=== PATIENT | male | born 1950 | race Caucasian/White ===

== ENCOUNTER 2016-04-26 06:59 | Emergency (ER) | payer BC, MEDICARE ==
[2016-04-26 07:07] VITALS: BP 145/83
[2016-04-26 07:25] LABS: Hematocrit 34.4 % (42.0-52.0); Hemoglobin 10.9 gm/dL (13.5-18.0); Mean Cell Volume 91.5 fl (78-100); Mean Corpuscular Hgb Conc 31.7 g/dl (32-36); Mean Platelet Volume 9.7 fl (6.0-9.5); Neutrophil # 4.7 K/mm3 (1.3-6.0); Platelet Count 203 K/mm3 (150-450); Red Blood Count 3.76 M/mm3 (4.7-6.0); Red Cell Distribution Width 13.9 % (11.5-14.0); White Blood Count 7.2 K/mm3 (4.0-10.5)
[2016-04-26] MEDS ORDERED: predniSONE 20 MG TABLET PO ONE (07:25)
[2016-04-26] MEDS ORDERED: predniSONE 20 MG TABLET ONE (07:33)
--- NOTE | 2016-04-26 07:36 | ERNOTE ---
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 - Immun/Allergies/Home Medications Immunizations: IMMUNIZATION HX Immunizations Up to Date Yes History of Influenza Vaccine Yes Hx Pneumococcal Vaccination No Allergies/Adverse Reactions: Allergies No Known Allergies Allergy (Verified 04/26/16 07:07) Home Medications: HOME MEDICATIONS Insulin Glargine,Hum.rec.anlog [Lantus] 15 units SQ HS 12/24/11 [Last Taken 2100] Multivitamin [Multivitamins] 1 tab PO DAILY 12/24/11 [Last Taken Unknown] [place]-3 Fatty Acids [Fish Oil] 1 tab PO DAILY 12/24/11 [Last Taken Unknown] Insulin Lispro [Humalog] 8 units SQ AC #0 01/01/12 [Last Taken 12/07/13 0700] Iron 325 mg PO TID 09/27/15 [Last Taken Unknown] Losartan Potassium [Cozaar] 50 mg PO DAILY 09/27/15 [Last Taken Unknown] Warfarin Sodium 7.5 mg PO SUMOTUWETHSA 09/27/15 [Last Taken Unknown] Warfarin Sodium [Coumadin] 5 mg PO TH 09/27/15 [Last Taken Unknown] Cholecalciferol (Vitamin D3) [Vitamin D3] 2,000 unit PO DAILY 02/04/16 [Last Taken Unknown] Polyethylene Glycol 3350 [Miralax] 17 gm PO PRN PRN 02/04/16 [Last Taken Unknown ] Acetaminophen [Tylenol] 650 mg PO Q4H PRN #30 tablet 02/07/16 [Last Taken Unknown] Albuterol Sulfate [Proair Hfa] 1 - 2 puff IH Q4H PRN #1 inhaler 02/07/16 [Last Taken Unknown] Albuterol Sulfate/Ipratropium [Duoneb 2.5-0.5MG/3ML Soln] 3 ml IH BID #1 nebu [Last Taken Unknown] Albuterol Sulfate [Albuterol Sulfate 2.5 MG/3 ML] 2.5 mg IH Q4H #60 vial.neb 07/08 [Last Taken Unknown] predniSONE [Prednisone] 2 tab PO BID #10 tab 04/26/16 [Last Taken Unknown] - History of Present Illness Narrative: Pt states he started have wheezing and sob earlier this morning about 0200 which awakened him. He says he used albuterol nebulizer then. He denies any fever but says he did also have some nasal congestion this a.m. He denies a history of asthma or COPD but was hospitalized in 2015 with SOB and dx'd with asthma. He denies any hx. of heart disease or CHF. 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 Denies: fever/chills, sweating, chest pain/discomfort, palpitations Prior Treatment: Reports: previous episodes - IN 2015 HE WAS HOSPITALIZED FOR "PNEUMONIA Review of Systems - Review of Systems Constitutional: Present: See HPI EYE: Present: no symptoms reported ENT: Present: nose congestion Respiratory: Present: shortness of breath, cough - MINIMAL , wheezing Cardiology: Present: no symptoms reported Gastrointestinal/Abdominal: Present: no symptoms reported Musculoskeletal: Present: no symptoms reported Skin: Present: no symptoms reported Neurological: Present: no symptoms reported Endocrine: Present: no symptoms reported Hematologic/Lymphatic: Present: no symptoms reported Psych: Present: no symptoms reported All Other Systems: All systems neg except as marked - Narrative Narrative: I LEARNED FROM AN OLD CHART AND THE THAT PT IS ON COUMADIN FOR HISTORY OF A FIB. - Patient's Past Medical History Patient History - Medical: Other Patient History - Cardiac/Respiratory: No pertinent hx, Atrial Fibrillation - HX. OF PAROXSYSMAL ATRAIL FIB. , Pneumonia Patient History - Cancer: No Hx of Cancer Patient History - Surgical Procedures: Orthopedic - STATES HE HAD ORIF LEFT ELBOW AND RIGHT HIP FRACTURE Patient History - Other: None - Family History Mother Family History - Medical: , History Unknown Father Family History - Medical: - Social History Living Situations: home Abuse History: No History of abuse Psych History: No pertinent hx Does anyone smoke in the home?: No Smoking Status: Never smoker Alcohol Use: none Drug Use: none - Immunizations Immunizations Up to Date: Yes Hx Pneumococcal Vaccination: No History of Influenza Vaccine: Yes Physical Exam - Physical Exam General Appearance: Present: alert, no apparent distress, other - ELDERLY THIN , SL. HUNCHED OVER MAN , A & O WITH FINE AUDIBLE WHEEZE. Ears, Nose, Throat: Present: nasal congestion - MILD Neck: Present: normal inspection, nontender Respiratory: Present: no respiratory distress, no accessory muscle use, chest nontender, wheezing - MILD END EXPIRATORY WHEEZE. Cardiovascular/Chest: Present: regular rate, rhythm, no murmur, normal peripheral pulses Back Exam: Present: normal inspection Extremity Exam: Present: no edema Neurological Exam: Present: alert, oriented Skin Exam: Present: normal color ED Progress - Date and Time Seen: Date and Time: 04/26/16 08:42 AFTER THE DUONEB HIS WHEEZES ARE GONE. - Results and Orders Patient's Lab Results:: I have reviewed the patient's lab results. Results and Orders: HGB= 10.9, INR = 2.25, GLUC =180, AND REST OF LABS WNL. BNP IS NORMAL - Vital Signs Patient's Vital Signs:: I have reviewed the patient's vital signs. Vital Signs: Vital Signs 04/26/16 07:03 Temperature 37.7 C H Pulse Rate 100 Respiratory 24 H Rate Blood Pressure 145/83 O2 Sat by Pulse 95 Oximetry MILD ELEVATED RR ON ADMISSION IN TRIAGE. - X-Ray X-Ray #1 X-Ray: chest Interpretation: Interp. by me X-ray Comments: HYPERINFLATION, SCOLIOSIS, NO INFILTRATE SEEN. - Progress/Reassessment Chief Complaint: Dyspnea Plan - Plan Plan: SINCE HE HAS NOT BEEN ON DUONEB AT HOME I WILL HAVE HIM CONT. THE ALBUTEROL NEB FOR NOW. HE RELATES HE DID HAVE ASTHMA A CHILD AND THAT HX COUPLED WITH RECENT MILD URI SX'S MAY EXPLAIN WHY HE HAD MORE TROUBLE TODAY. I SEE NO EVIDENCE OF PNEUMONIA. Departure Clinical Impression: Dyspnea, unspecified Qualifiers: Dyspnea type: shortness of breath Qualified Code(s): R06.02 - Shortness of breath - Departure Disposition: Home Follow Up Needed Instructions: Chronic Obstructive Pulmonary Disease Exacerbation, [id number] Additional Instructions: CONTACT YOUR DOCTOR TOMORROW TO ARRANGE RECHECK OR RETURN TO THE ER IF WORSE. USE YOUR ALBUTEROL NEBULIZER EVERY 4 HOURS AT HOME UNTIL YOU IMPROVE THEN DECREASE TO EVERY 6 HOURS. TAKE THE PREDNISONE DIRECTED -- YOU ALREADY HAD TODAYS DOSE IN THE EMERGENCY ROOM SO THE NEXT DOSE IS TOMORROW. IT IS BEST TO TAKE IT WITH FOOD IN YOUR STOMACH AND IT CAN CAUSE A RISE IN YOUR BLOOD SUGAR. MAKE SURE YOU ARE DRINKING 6- 8 GLASSES OF FLUID A DAY. Referrals: Maritza Carter MD [Primary Care Provider] - Prescriptions: Albuterol Sulfate [Albuterol Sulfate 2.5 MG/3 ML] 2.5 mg IH Q4H #60 vial.neb predniSONE [Prednisone] 2 tab PO BID #10 tab
[2016-04-26 07:37] LABS: Prothrombin Time (Patient) 23.4 Seconds (9.4-11.4)
[2016-04-26 07:38] LABS: Anion Gap 12.2 mmol/L (6.8-13.8); BUN/Creatinine Ratio 17.9 (9.0-21.6); Bilirubin, Total 0.3 mg/dL (0.0-1.1); Ca. Corrected For Albumin 8.8 mg/dL (8.4-10.2); Calcium * 8.3 mg/dL (7.9-10.9); Carbon Dioxide 27.9 mmol/L (24-32.6); Potassium 4.1 mmol/L (3.4-4.6); Total Protein 7.2 gm/dL (6.2-8.2)
[2016-04-26 07:41] LABS: INR 2.25 INR (0.90-1.10)
--- OUTSIDE RECORDS SUMMARY | 2016-04-26 07:41 | XMS REPORT | Summary of Care ---
:1950 Author Organization [facility] Address [address] [place] [address] Care Team Providers Name Role Phone Maritza Carter Primary Care Physician Encounter Date(s): 04/10/16 - 04/10/16 [facility], [address] [place], [place] [address] Discharge Diagnosis: Benign prostatic hypertrophy (BPH) with incomplete bladder emptying Discharge Disposition: 01 Discharged to Home or Self Care Attending Physician: Davidson Collins MD Referring Physician: Davidson Collins MD Vital Signs Most recent to oldest [Reference Range]: 1 Peripheral Pulse Rate [60-100 bpm] 60 bpm (04/10/16 10:00 AM) Blood Pressure [90-130/60-90 mmHg] 114/67mmHg (04/10/16 10:00 AM) Mean Arterial Pressure, Cuff 83 mmHg (04/10/16 10:00 AM) Most recent to oldest [Reference Range]: 1 Height/Length Measured 182 cm (04/10/16 10:00 AM) Weight Dosing 73.60 kg1 (04/10/16 10:01 AM) Weight Measured 73.6 kg (04/10/16 10:00 AM) BSA Measured 1.94 m2 (04/10/16 10:00 AM) Body Mass Index Measured 22.22 kg/m2 (04/10/16 10:00 AM) 1Result Comment: This result was because the dosing weight was either not entered or it is>30 days old. This result is based off: Weight Measured April 10, 2016 10:00:00 FARM SUPERVISOR by Amelia Recinos RN Problem List Condition Effective Dates Status Health Status Informant Anemia(Confirmed) Active Cellulitis(Confirmed)1 Active Charcot joint of foot(Confirmed) Active CHF - Congestive heart Active failure(Confirmed) CKD stage 3(Confirmed) Active Diabetes mellitus type 1(Confirmed) Active Edema(Confirmed) Active Hypertension(Confirmed) Active Microalbuminuria(Confirmed) Active Osteoarthritis(Confirmed) Active Pad(Confirmed) Active Proteinuria(Confirmed) Active Renal mass(Confirmed) Active Secondary Active hyperparathyroidism(Confirmed) Vitamin D deficiency(Confirmed) Active 1left leg Allergies, Adverse Reactions, Alerts No Known Medication Allergies Medications Tish Childrens Aspirin 81 mg oral tablet, chewable 1 tab(s), Oral, Daily, # 30 tab(s), 0 Refill(s) Start Date: 07/19/13 Stop Date: 11/26/15 Status: Discontinuedcalcitriol 0.25 mcg oral capsule 1 cap(s), Oral, Every other day, # 15 cap(s), 5 Refill(s), Start Date: 01/07/15 12:39:55 FARM SUPERVISOR, Pharmacy: [place], [place] Start Date: 01/07/15 Stop Date: 11/26/15 Status: Discontinuedcalcitriol 0.25 mcg oral capsule 1 cap(s), Oral, Every other day, # 15 cap(s), 6 Refill(s), Start Date: 06/20/14 10:38:00 CDT, Pharmacy: [place], [place] Start Date: 06/20/14 Stop Date: 01/07/15 Status: Completedcholecalciferol 2000 intl units oral tablet 1 tab(s), Oral, Daily, # 30 tab(s), 6 Refill(s), Start Date: 06/20/14 10:38:00 CDT, Pharmacy: [place], [place] Start Date: 06/20/14 Status: Orderedferrous sulfate 325 mg (65 mg elemental iron) oral delayed release tablet 3 tab(s), Oral, Daily, # 30 tab(s), 0 Refill(s), Start Date: 07/19/13 8:58:00 CDT Start Date: 07/19/13 Status: Orderedfinasteride 5 mg oral tablet 1 tab(s), Oral, Daily, # 90 tab(s), 3 Refill(s), Start Date: 02/27/16 14:15:22 FARM SUPERVISOR, Pharmacy: [facility] Start Date: 02/27/16 Stop Date: 02/21/17 Status: Orderedfinasteride 5 mg oral tablet 1 tab(s), Oral, Daily, X 90 days, # 90 tab(s), 3 Refill(s), Start Date: 16:39:00 CDT, Pharmacy: [place], [place] Start Date: 10/07/15 Stop Date: 02/27/16 Status: CompletedFish Oil 1000 mg oral capsule 1 cap(s), Oral, Daily, 0 Refill(s) Start Date: 07/19/13 Status: OrderedFlomax 0.4 mg oral capsule 1 cap(s), Oral, Daily, before bed, # 30 cap(s), 11 Refill(s), Start Date: 9:57:00 CDT, Pharmacy: [place], [place] Special Instructions: before bed Start Date: 09/14/14 Status: OrderedHumaLOG 100 units/mL subcutaneous solution 5 unit(s), Subcutaneous, TIDAC, # 10 mL, 0 Refill(s) Start Date: 07/19/13 Status: OrderedLantus 100 units/mL subcutaneous solution Subcutaneous, 0 Refill(s) Start Date: 07/19/13 Status: Orderedlisinopril 40 mg oral tablet 1 tab(s), Oral, BID, 0 Refill(s) Start Date: 07/19/13 Stop Date: 04/23/15 Status: Completedlosartan 50 mg oral tablet 1 tab(s), Oral, Daily, # 90 tab(s), 3 Refill(s), Start Date: 11/26/15 10:13:36 CDT, Pharmacy: [place], [place] Start Date: 11/26/15 Status: Orderedlosartan 50 mg oral tablet 1 tab(s), Oral, Daily, # 30 tab(s), 5 Refill(s), Start Date: 06/19/15 15:12:25 CDT, Pharmacy: [place], [place] Start Date: 06/19/15 Stop Date: 11/26/15 Status: Completedlosartan 50 mg oral tablet 1 tab(s), Oral, Daily, # 30 tab(s), 5 Refill(s), Start Date: 12/19/14 10:45:00 CDT, Pharmacy: [place] Start Date: 12/19/14 Stop Date: 06/19/15 Status: CompletedMiraLax gm, Oral, Daily, 0 Refill(s) Start Date: 07/19/13 Status: Orderedmultivitamin 1 tab, Oral, Daily, 0 Refill(s) Start Date: 07/19/13 Status: Ordered Results No data available for this section Immunizations No data available for this section Procedures Procedure Date Related Diagnosis Body Site Fracture care1 2011 Colonoscopy 2010 Hernia repair 1984 Amputation great toe ORIF - Open reduction and internal fixation of fracture2 1right [id number] Fracture Social History No data available for this section Assessment and Plan No data available for this section
[2016-04-26] MEDS ORDERED: ALBUTEROL SULFATE/IPRATROPIUM 3 ML NEBU IH ONE ×2 (08:14→08:15)
== END 2016-04-26 09:04 | disposition home or self-care (01) ==
LOC: ER 06:59
DX: R06.02 Shortness of breath (principal)

== ENCOUNTER 2016-07-30 14:27 | Emergency (ER) | payer BC, MEDICARE ==
[2016-07-30] MEDS ORDERED: METHYLPREDNISOLONE SOD SUCC/PF 40 MG/ML VIAL IV ONE (14:47)
[2016-07-30] MEDS ORDERED: ALBUTEROL SULFATE/IPRATROPIUM 3 ML NEBU IH ONE ×2 (14:47→14:56)
[2016-07-30 14:52] LABS: Hematocrit 32.7 % (42.0-52.0); Hemoglobin 10.6 gm/dL (13.5-18.0); Mean Cell Volume 87.9 fl (78-100); Mean Corpuscular Hemoglobin 28.5 pg (27-31); Mean Corpuscular Hgb Conc 32.4 g/dl (32-36); Mean Platelet Volume 9.2 fl (6.0-9.5); Neutrophil # 3.9 K/mm3 (1.3-6.0); Platelet Count 243 K/mm3 (150-450); Red Blood Count 3.72 M/mm3 (4.7-6.0); Red Cell Distribution Width 13.8 % (11.5-14.0); White Blood Count 6.7 K/mm3 (4.0-10.5)
[2016-07-30] MEDS ORDERED: METHYLPREDNISOLONE SOD SUCC/PF 40 MG/ML VIAL ONE (15:04)
[2016-07-30 15:11] LABS: Anion Gap 12.1 mmol/L (6.8-13.8); BUN/Creatinine Ratio 21.2 (9.0-21.6); Bilirubin, Total 0.3 mg/dL (0.0-1.1); Ca. Corrected For Albumin 9.3 mg/dL (8.4-10.2); Calcium * 8.8 mg/dL (7.9-10.9); Carbon Dioxide 26.3 mmol/L (24-32.6); Magnesium 2.1 mg/dL (1.2-2.8); Potassium 4.4 mmol/L (3.4-4.6); Total Protein 7.1 gm/dL (6.2-8.2)
--- NOTE | 2016-07-30 16:04 | ERNOTE ---
Dyspnea - General Presenting Symptoms: shortness of breath, wheezing Time Seen by Provider: 07/30/16 14:40 Source: patient, family - Immun/Allergies/Home Medications Immunizations: IMMUNIZATION HX Immunizations Up to Date Yes History of Influenza Vaccine Yes Hx Pneumococcal Vaccination No Allergies/Adverse Reactions: Allergies No Known Allergies Allergy (Verified 07/30/16 14:37) Home Medications: HOME MEDICATIONS Insulin Glargine,Hum.rec.anlog [Lantus] 15 units SQ HS 12/24/11 [Last Taken 2100] Multivitamin [Multivitamins] 1 tab PO DAILY 12/24/11 [Last Taken Unknown] [place]-3 Fatty Acids [Fish Oil] 1 tab PO DAILY 12/24/11 [Last Taken Unknown] Iron 325 mg PO TID 09/27/15 [Last Taken Unknown] Losartan Potassium [Cozaar] 50 mg PO DAILY 09/27/15 [Last Taken Unknown] Warfarin Sodium 7.5 mg PO SUMOTUWETHSA 09/27/15 [Last Taken Unknown] Warfarin Sodium [Coumadin] 5 mg PO TH 09/27/15 [Last Taken Unknown] Cholecalciferol (Vitamin D3) [Vitamin D3] 2,000 unit PO DAILY 02/04/16 [Last Taken Unknown] Polyethylene Glycol 3350 [Miralax] 17 gm PO PRN PRN 02/04/16 [Last Taken Unknown ] Acetaminophen [Tylenol] 650 mg PO Q4H PRN #30 tablet 02/07/16 [Last Taken Unknown] Albuterol Sulfate [Proair Hfa] 1 - 2 puff IH Q4H PRN #1 inhaler 02/07/16 [Last Taken Unknown] Albuterol Sulfate/Ipratropium [Duoneb 2.5-0.5MG/3ML Soln] 3 ml IH BID #1 nebu [Last Taken Unknown] Albuterol Sulfate/Ipratropium [Duoneb 2.5-0.5MG/3ML Soln] 3 ml IH QID #150 vial 07/30/16 [Last Taken Unknown] Doxycycline Monohydrate 100 mg PO BID #20 tablet 07/30/16 [Last Taken Unknown] Insulin Lispro [Humalog] 5 units SQ AC 07/30/16 [Last Taken Unknown] predniSONE [Deltasone] 20 mg PO BID #10 tablet 07/30/16 [Last Taken Unknown] - History of Present Illness Narrative: Patient presents with shortness of breath, cough and wheezing. He states this been ongoing for approximately the last day and he is tried treatments at home and they do not appear to be working effectively. He describes the overall symptomatology as being moderate in intensity. 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 Initiating event: Reports: upper resp illness Frequency of episodes: Reports: occassional episodes Modifying Factors - (Improves): Reports: albuterol Modifying Factors (Worsens): Reports: activity Review of Systems - Review of Systems Constitutional: Present: See HPI EYE: Present: no symptoms reported ENT: Present: no symptoms reported Respiratory: Present: See HPI Cardiology: Present: no symptoms reported Gastrointestinal/Abdominal: Present: no symptoms reported Genitourinary: Present: no symptoms reported Musculoskeletal: Present: no symptoms reported Skin: Present: no symptoms reported Neurological: Present: no symptoms reported Endocrine: Present: no symptoms reported Hematologic/Lymphatic: Present: no symptoms reported Psych: Present: no symptoms reported - Patient's Past Medical History Patient History - Medical: Other Patient History - Cardiac/Respiratory: No pertinent hx, Atrial Fibrillation, Pneumonia, Other - asthma Patient History - Cancer: No Hx of Cancer Patient History - Surgical Procedures: Orthopedic Patient History - Other: None - Family History Mother Family History - Medical: , History Unknown Father Family History - Medical: - Social History Living Situations: home Abuse History: No History of abuse Psych History: No pertinent hx Does anyone smoke in the home?: No Smoking Status: Never smoker Have you smoked in the past 12 months: No Alcohol Use: none Drug Use: none - Immunizations Immunizations Up to Date: Yes Hx Pneumococcal Vaccination: No History of Influenza Vaccine: Yes Physical Exam - Physical Exam General Appearance: Present: wd/wn, alert, mild distress Eye Exam: Normal inspection: bilateral, PERRL: bilateral Ears, Nose, Throat: Present: normal ENT inspection, H, normal pharynx Neck: Present: normal inspection, nontender Respiratory: Present: no accessory muscle use, chest nontender, rhonchi, wheezing Cardiovascular/Chest: Present: regular rate, rhythm, no murmur, normal peripheral pulses Gastrointestinal/Abdominal: Present: normal bowel sounds, nontender, nondistended, soft, no organomegaly Rectal Exam: Present: deferred Back Exam: Present: normal inspection, normal range of motion Extremity Exam: Present: normal inspection, non-tender, no edema, normal range of motion Neurological Exam: Present: alert, oriented, normal mood/affect Skin Exam: Present: normal color, warm/dry Lymphatic Exam: Present: no adenopathy ED Progress - Results and Orders Patient's Lab Results:: I have reviewed the patient's lab results. - Vital Signs Patient's Vital Signs:: I have reviewed the patient's vital signs. Vital Signs: Vital Signs 07/30/16 07/30/16 07/30/16 14:33 14:37 15:09 Temperature 37 C Pulse Rate 73 72 72 Respiratory 14 12 Rate Blood Pressure 146/76 141/69 O2 Sat by Pulse 94 94 Oximetry 07/30/16 15:38 Temperature Pulse Rate 66 Respiratory 13 Rate Blood Pressure 150/72 O2 Sat by Pulse 95 Oximetry - X-Ray X-Ray #1 X-Ray: chest Interpretation: Reviewed by me - Progress/Reassessment Chief Complaint: Dyspnea Progress:: Improved Plan - Plan Plan: Patient improved on the DuoNeb HHN treatment as well as the IV steroids. Patient will be given a prescription for antibiotics, oral steroids and DuoNeb for his breathing machine at home. Patient will follow-up with his family physician in a week to 10 days. Patient is discharged in stable condition. Departure Clinical Impression: Bronchitis Asthma Qualifiers: Asthma severity: mild intermittent Asthma complication type: uncomplicated Qualified Code(s): J45.20 - Mild intermittent asthma, uncomplicated - Departure Disposition: Home self-care Condition: Good Instructions: Bronchospasm, Adult, [id number], Acute Bronchitis, [id number] Referrals: Maritza Carter MD [Primary Care Provider] - Prescriptions: Albuterol Sulfate/Ipratropium [Duoneb 2.5-0.5MG/3ML Soln] 3 ml IH QID #150 vial Doxycycline Monohydrate 100 mg PO BID #20 tablet predniSONE [Deltasone] 20 mg PO BID #10 tablet
[2016-07-30 16:18] VITALS: BP 136/70
== END 2016-07-30 16:21 | disposition home or self-care (01) ==
LOC: ER 14:27
DX: J45.20 Mild intermittent asthma, uncomplicated (principal); I48.91 Unspecified atrial fibrillation; Z79.01 Long term (current) use of anticoagulants

== ENCOUNTER 2016-09-02 06:55 | Emergency (ER) | payer BC, MEDICARE ==
[2016-09-02] MEDS ORDERED: oxyCODONE HCL/ACETAMINOPHEN 1 TAB TABLET PO ONE (08:33)
--- NOTE | 2016-09-02 08:44 | ERNOTE ---
Upper Extremity HPI - General Extremities Pain Location: shoulder: left Time Seen by Provider: 09/02/16 08:12 Source: patient Exam Limitations: no limitations - Immun/Allergies/Home Medications Immunizations: IMMUNIZATION HX Immunizations Up to Date Yes History of Influenza Vaccine Yes Hx Pneumococcal Vaccination No Allergies/Adverse Reactions: Allergies Allergy/AdvReac Type Severity Reaction Status Date / Time No Known Allergies Allergy Verified 09/02/16 07:07 Home Medications: HOME MEDICATIONS Insulin Glargine,Hum.rec.anlog [Lantus] 15 units SQ HS 12/24/11 [Last Taken 01/08] Multivitamin [Multivitamins] 1 tab PO DAILY 12/24/11 [Last Taken 09/01/16] [place]-3 Fatty Acids [Fish Oil] 1 tab PO DAILY 12/24/11 [Last Taken 09/01/16] Iron 325 mg PO TID 09/27/15 [Last Taken 09/01/16] Losartan Potassium [Cozaar] 50 mg PO DAILY 09/27/15 [Last Taken 09/01/16] Warfarin Sodium 7.5 mg PO SUTUWESA 09/27/15 [Last Taken 09/01/16] Warfarin Sodium [Coumadin] 5 mg PO MOTH 09/27/15 [Last Taken 09/01/16] Cholecalciferol (Vitamin D3) [Vitamin D3] 2,000 unit PO DAILY 02/04/16 [Last Taken 09/01/16] Polyethylene Glycol 3350 [Miralax] 17 gm PO PRN PRN 02/04/16 [Last Taken ] Acetaminophen [Tylenol] 650 mg PO Q4H PRN #30 tablet 02/07/16 [Last Taken ] Albuterol Sulfate [Proair Hfa] 1 - 2 puff IH Q4H PRN #1 inhaler 02/07/16 [Last Taken 09/01/16] Albuterol Sulfate/Ipratropium [Duoneb 2.5-0.5MG/3ML Soln] 3 ml IH QID #150 vial 07/30/16 [Last Taken 09/01/16] Insulin Lispro [Humalog] 5 units SQ AC 07/30/16 [Last Taken 09/01/16] Albuterol Sulfate/Ipratropium [Duoneb 2.5-0.5MG/3ML Soln] 3 ml IH BID PRN [Last Taken 09/01/16] oxyCODONE HCL/ACETAMINOPHEN [Percocet 5 MG/325 MG] 1 tab PO Q4H PRN #30 tab 02/07 [Last Taken Unknown] - History of Present Illness Narrative: Yesterday afternoon patient took a shower and then sat on the toilet when he started to feel lightheaded and fell on his left side hitting his left chest and shoulder on the tub. He was able to get up with help and when he checked in sugar it was 47. He felt better after he ate and drank. 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 He is seeing Dr Quinn for a chronic foot wound that he thinks is getting better and that he does not think needs to be addressed today Review of Systems - Review of Systems Constitutional: Absent: recent illness, fever ENT: Absent: nose congestion, sore throat Respiratory: Present: See HPI, other - pain with deep breath. Absent: shortness of breath Cardiology: Present: See HPI, chest pain Gastrointestinal/Abdominal: Absent: nausea, vomiting, abdominal pain Genitourinary: Present: no symptoms reported Musculoskeletal: Present: See HPI. Absent: back pain, neck pain Neurological: Absent: weakness, numbness - Patient's Past Medical History Patient History - Medical: Diabetes Type 2 Insulin Dependent Patient History - Cardiac/Respiratory: Atrial Fibrillation, Hypertension, Pneumonia, Other Patient History - Cancer: No Hx of Cancer Patient History - Surgical Procedures: Total Hip Replacement Patient History - Other: None - Family History Mother Family History - Medical: , History Unknown Father Family History - Medical: - Social History Living Situations: home Abuse History: No History of abuse Psych History: No pertinent hx Does anyone smoke in the home?: No Smoking Status: Never smoker Have you smoked in the past 12 months: No Do you dip or chew tobacco: No Alcohol Use: none Drug Use: none - Immunizations Immunizations Up to Date: Yes Hx Pneumococcal Vaccination: No History of Influenza Vaccine: Yes Physical Exam - Physical Exam General Appearance: Present: wd/wn, alert, no apparent distress Head Exam: Present: normal inspection Neck: Present: normal inspection, nontender Respiratory: Present: no respiratory distress, normal breath sounds, no accessory muscle use, lungs clear, chest tenderness - left lower chest tender between mid clavicular and anterio axillay line, no bruising, no instability, minimal tenderness over left scapula spine, no other scapula tenderness Cardiovascular/Chest: Present: regular rate, rhythm, no murmur Gastrointestinal/Abdominal: Present: normal bowel sounds, nontender, nondistended, soft Back Exam: Present: normal inspection, no CVA tenderness, no vertebral tenderness Neurological Exam: Present: alert, oriented Skin Exam: Present: normal color, warm/dry ED Progress - Vital Signs Patient's Vital Signs:: I have reviewed the patient's vital signs. Vital Signs: Vital Signs 09/02/16 06:58 Temperature 36.9 C Pulse Rate 68 Respiratory 16 Rate Blood Pressure 150/74 O2 Sat by Pulse 98 Oximetry - X-Ray X-Ray #1 X-Ray: shoulder - scapular spine fracture, osteopenia Interpretation: Reviewed by me X-Ray #2 X-Ray: ribs, fracture multiple ribs Interpretation: Reviewed by me - Progress/Reassessment Chief Complaint: Upper Extremity Injury/Problem Progress Note-Subjective: 09/02/16 08:35 discussed Xray with patient and Departure Clinical Impression: Ribs, multiple fractures Qualifiers: Encounter type: initial encounter Fracture type: closed Laterality: left Qualified Code(s): S22.42XA - Multiple fractures of ribs, left side, initial encounter for closed fracture - Departure Disposition: Home self-care Condition: Good Instructions: Rib Fracture, [id number] Additional Instructions: try to take tylenol (325mg) two tablets every four hours as needed for pain, take the percocet for sleeping or as needed during the day (do not take together as percocet has tylenol in it) take miralax daily, take senokot while you are taking the pain medication, call your doctor for follow up Referrals: Maritza Catrer MD [Primary Care Provider] - Prescriptions: oxyCODONE HCL/ACETAMINOPHEN [Percocet 5 MG/325 MG] 1 tab PO Q4H PRN #30 tab PRN Reason: Pain
[2016-09-02] MEDS ORDERED: oxyCODONE HCL/ACETAMINOPHEN 1 TAB TABLET ONE (08:49)
[2016-09-02 09:24] VITALS: BP 142/76
== END 2016-09-02 09:20 | disposition home or self-care (01) ==
LOC: ER 06:55
DX: S22.42XA Multiple fractures of ribs, left side, initial encounter for closed fracture (principal); M25.512 Pain in left shoulder; W19.XXXA Unspecified fall, initial encounter

== ENCOUNTER 2016-09-11 08:21 | Inpatient (IN) | payer BC, MEDICARE ==
[2016-09-11] MEDS ORDERED: NORMAL SALINE 1,000 ML IV PRN (08:54)
--- NOTE | 2016-09-11 09:00 | ERNOTE ---
Medical Problem HPI - Narrative Date of Service: 09/11/16 - General Chief Complaint: Fever Time Seen by Provider: 09/11/16 08:45 Source: patient, family Exam Limitations: no limitations - Immun/Allergies/Home Medications Immunizations: IMMUNIZATION HX Immunizations Up to Date Yes History of Influenza Vaccine Yes Hx Pneumococcal Vaccination No Allergies/Adverse Reactions: Allergies No Known Allergies Allergy (Verified 09/11/16 09:02) Home Medications: HOME MEDICATIONS Insulin Glargine,Hum.rec.anlog [Lantus] 15 units SQ HS 12/24/11 [Last Taken 01/08] Multivitamin [Multivitamins] 1 tab PO DAILY 12/24/11 [Last Taken 09/01/16] [place]-3 Fatty Acids [Fish Oil] 1 tab PO DAILY 12/24/11 [Last Taken 09/01/16] Iron 325 mg PO TID 09/27/15 [Last Taken 09/01/16] Losartan Potassium [Cozaar] 50 mg PO DAILY 09/27/15 [Last Taken 09/01/16] Warfarin Sodium 7.5 mg PO SUTUWESA 09/27/15 [Last Taken 09/01/16] Warfarin Sodium [Coumadin] 5 mg PO MOTH 09/27/15 [Last Taken 09/01/16] Cholecalciferol (Vitamin D3) [Vitamin D3] 2,000 unit PO DAILY 02/04/16 [Last Taken 09/01/16] Polyethylene Glycol 3350 [Miralax] 17 gm PO PRN PRN 02/04/16 [Last Taken ] Acetaminophen [Tylenol] 650 mg PO Q4H PRN #30 tablet 02/07/16 [Last Taken ] Albuterol Sulfate [Proair Hfa] 1 - 2 puff IH Q4H PRN #1 inhaler 02/07/16 [Last Taken 09/01/16] Albuterol Sulfate/Ipratropium [Duoneb 2.5-0.5MG/3ML Soln] 3 ml IH QID #150 vial 07/30/16 [Last Taken 09/01/16] Insulin Lispro [Humalog] 5 units SQ AC 07/30/16 [Last Taken 09/01/16] Albuterol Sulfate/Ipratropium [Duoneb 2.5-0.5MG/3ML Soln] 3 ml IH BID PRN [Last Taken 09/01/16] oxyCODONE HCL/ACETAMINOPHEN [Percocet 5 MG/325 MG] 1 tab PO Q4H PRN #30 tab 02/07 [Last Taken Unknown] - History of Present History Narrative: 65-year-old white male presents because of illness. Patient was seen and evaluated following a fall on 09/02/2016 for a suffered for nondisplaced left- sided rib fractures. He was discharged home following plain films. During the past couple days he has had problems. He developed fever and chills yesterday. He's had urinary incontinence. He's had dizziness and difficulty ambulating due to his overall generalized weakness. Denies any focal weakness of his extremities. He does not have a headache. He denies head injury with the fall. He has no history of urinary incontinence. He has not had hematuria. He denies cough or shortness of breath. He did have vomiting today. Review of Systems - Review of Systems Constitutional: Present: See HPI, recent illness, fever, chills, weakness, fatigue, malaise, decreased activity level EYE: Present: no symptoms reported ENT: Present: no symptoms reported Respiratory: Present: See HPI. Absent: shortness of breath, cough Gastrointestinal/Abdominal: Present: nausea. Absent: vomiting, abdominal pain Genitourinary: Present: See HPI. Absent: pain, hematuria Musculoskeletal: Present: See HPI - left-sided chest pain from 4 rib fractures on September 02 2016 fall Skin: Present: no symptoms reported Neurological: Present: dizziness/light-headedness Endocrine: Present: See HPI Hematologic/Lymphatic: Present: other - patient is on Coumadin Psych: Present: no symptoms reported All Other Systems: All systems neg except as marked - Patient's Past Medical History Patient History - Medical: Diabetes Type 1 Patient History - Cardiac/Respiratory: Atrial Fibrillation, Hypertension, Pneumonia, Other Patient History - Cancer: No Hx of Cancer Patient History - Surgical Procedures: Total Hip Replacement Patient History - Other: None - Family History Mother Family History - Medical: , History Unknown Father Family History - Medical: - Social History Living Situations: home Abuse History: No History of abuse Psych History: No pertinent hx Does anyone smoke in the home?: No Smoking Status: Never smoker Alcohol Use: none Drug Use: none - Immunizations Immunizations Up to Date: Yes Hx Pneumococcal Vaccination: No History of Influenza Vaccine: Yes Physical Exam - Physical Exam General Appearance: Present: alert Eye Exam: Normal inspection: bilateral, PERRL: bilateral, EOMI: bilateral Ears, Nose, Throat: Present: normal ENT inspection, normal except - Respiratory: Present: no respiratory distress, other - lungs are diminished and coarse bilaterally. Cardiovascular/Chest: Present: regular rate, rhythm, normal peripheral pulses, other - patient has tenderness left chest wall Gastrointestinal/Abdominal: Present: normal bowel sounds, nontender, soft. Absent: tenderness Extremity Exam: Present: normal inspection, other - patient has a large ulcerative lesion on the plantar surface of his left foot. 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 - Vital Signs Patient's Vital Signs:: I have reviewed the patient's vital signs. Vital Signs: Vital Signs 09/11/16 08:35 Temperature 38.1 C H Pulse Rate 89 Respiratory 16 Rate Blood Pressure 136/89 O2 Sat by Pulse 95 Oximetry - EKG EKG: NSR EKG read: Reviewed by me - CT/Ultrasound CT/Ultrasound Narrative: Reviewed radiologist's interpretation of CT brain chest abdomen pelvis. - Progress/Reassessment Chief Complaint: Fever Progress:: Re-examined Progress Note-Subjective: 09/11/16 11:42 Patient continues to have fever. Blood cultures were drawn. Initial lactic acid was within normal limits. Rocephin 1 g IV given. Patient was also given Tylenol by mouth. Blood pressure remained stable. Urine culture will be done. Patient does have hematuria. He's had urinary incontinence with this. Plan - Plan Plan: Spoke with patient's primary care provider Dr. Carter at 11:40 AM. Patient is still having fever. He is too ill to be discharged home safely. Blood cultures drawn. Urine cultures done. Repeat lactic acid will be done. Rocephin 1 g IV given. Tylenol given. Vital signs remain stable however his fever has elevated. Patient has had increasing generalized weakness with fevers chills and urinary incontinence which are new. I spoke to patient's primary care physician regarding his CT brain finding. At this time he is comfortable taking care of patient. We did discuss the possibility that patient could have normal pressure hydrocephalus. Patient will be admitted to the medical floor. Patient will need to have an MRI of his left foot my opinion to rule out osteomyelitis. Departure - Departure Clinical Impression: Fever and chills, Hyponatremia, PAF (paroxysmal atrial fibrillation), Dizziness Diabetic foot ulcer Qualifiers: Diabetic foot ulcer location: unspecified part of foot Diabetes mellitus type: type 1 Laterality: left Non-pressure ulcer stage: unspecified non-pressure ulcer stage Qualified Code(s): E10.621 - Type 1 diabetes mellitus with foot ulcer; L97.529 - Non-pressure chronic ulcer of other part of left foot with unspecified severity Anemia Qualifiers: Anemia type: unspecified type Qualified Code(s): D64.9 - Anemia, unspecified Diabetes Qualifiers: Diabetes mellitus type: type 1 Diabetes mellitus complication status: with unspecified complications Qualified Code(s): E10.8 - Type 1 diabetes mellitus with unspecified complications Disposition: [facility] Condition: Stable
--- OUTSIDE RECORDS SUMMARY | 2016-09-11 09:02 | XMS REPORT | Summary of Care ---
:1950 Author Organization [facility] Address [address] [place] [address] Care Team Providers Name Role Phone Maritza Carter Primary Care Physician Encounter Date(s): 05/26/16 - 05/26/16 [facility], [address] [place], [place] [address] Discharge Diagnosis: Chronic kidney disease (CKD), stage III (moderate) Discharge Diagnosis: Benign hypertension with CKD (chronic kidney disease) stage III Discharge Diagnosis: Hypernatremia Discharge Diagnosis: Anemia of chronic kidney failure Discharge Disposition: 01 Discharged to Home or Self Care Attending Physician: RHONA Santiago Referring Physician: RHONA Santiago Vital Signs Most recent to oldest [Reference Range]: 1 Temperature Temporal Artery [36.0-38.0 DegC] 37.3 DegC (05/26/16 10:21 AM) Peripheral Pulse Rate [60-100 bpm] 62 bpm (05/26/16 10:21 AM) Respiratory Rate [12-20 br/min] 18 br/min (05/26/16 10:21 AM) Blood Pressure [90-130/60-90 mmHg] 134/78mmHg *HI* (05/26/16 10:21 AM) Mean Arterial Pressure, Cuff 97 mmHg (05/26/16 10:21 AM) Most recent to oldest [Reference Range]: 1 Height/Length Measured 182.88 cm (05/26/16 10:21 AM) Weight Dosing 75 kg (05/26/16 10:21 AM) Weight Measured 75 kg (05/26/16 10:21 AM) BSA Measured 1.96 m2 (05/26/16 10:21 AM) Body Mass Index Measured 22.42 kg/m2 (05/26/16 10:21 AM) Problem List Condition Effective Dates Status Health [...] cap(s), 5 Refill(s), Start Date: 01/07/15 12:39:55 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, 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[place], [place] Start Date: 01/07/15 Stop Date: 11/26/15 Status: Discontinuedcalcitriol 0.25 mcg oral capsule 1 cap(s), Oral, Every other day, # 15 cap(s), 6 Refill(s), Start Date: 06/20/14 10:38:00 CDT, Pharmacy: [place], [place] Start Date: 06/20/14 Stop Date: 01/07/15 Status: Completedcholecalciferol 2000 intl units oral tablet 1 tab(s), Oral, Daily, # 30 tab(s), 6 Refill(s), Start Date: 06/20/14 10:38:00 CDT, Pharmacy: [place], [place] Start Date: 06/20/14 Status: Orderedferrous sulfate 325 mg (65 mg elemental iron) oral delayed release tablet 3 tab(s), Oral, Daily, # 30 tab(s), 0 Refill(s), Start Date: 07/19/13 8:58:00 CDT Start Date: 07/19/13 Status: Orderedfinasteride 5 mg oral tablet 1 tab(s), Oral, Daily, # 90 tab(s), 3 Refill(s), Start Date: 02/27/16 14:15:22 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, 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: [facility] Start Date: 02/27/16 Stop Date: 02/21/17 Status: Orderedfinasteride 5 mg oral tablet 1 tab(s), Oral, Daily, X 90 days, # 90 tab(s), 3 Refill(s), Start Date: 16:39:00 CDT, Pharmacy: [place], [place] Start Date: 10/07/15 Stop Date: 02/27/16 Status: CompletedFish Oil 1000 mg oral capsule 1 cap(s), Oral, Daily, 0 Refill(s) Start Date: 07/19/13 Status: OrderedFlomax 0.4 mg oral capsule 1 cap(s), Oral, Daily, before bed, # 30 cap(s), 11 Refill(s), Start Date: 9:57:00 CDT, Pharmacy: [place], [place] Special Instructions: before bed Start Date: [...] Refill(s), Start Date: 11/26/15 10:13:36 CDT, Pharmacy: [place], [place] Start Date: 11/26/15 Stop Date: 05/08/16 Status: Completedlosartan 50 mg oral tablet 1 tab(s), Oral, Daily, # 90 tab(s), 3 Refill(s), Start Date: 05/08/16 13:44:15 CDT, Pharmacy: [facility] Start Date: 05/08/16 Status: Orderedlosartan 50 mg oral tablet 1 tab(s), Oral, Daily, # 30 tab(s), 5 Refill(s), Start Date: 06/19/15 15:12:25 CDT, Pharmacy: [place], [place] Start Date: 06/19/15 Stop Date: 11/26/15 Status: Completedlosartan 50 mg oral tablet 1 tab(s), Oral, Daily, # 30 tab(s), 5 Refill(s), Start Date: 12/19/14 10:45:00 CDT, Pharmacy: [place], [place] Start Date: 12/19/14 Stop Date: 06/19/15 Status: CompletedMiraLax gm, Oral, Daily, 0 Refill(s) Start Date: 07/19/13 Status: Orderedmultivitamin 1 tab, Oral, Daily, 0 Refill(s) Start Date: 07/19/13 Status: Orderedwarfarin 7.5 mg oral tablet 1 tab(s), Oral, Daily, # 30 tab(s), 0 Refill(s), Start Date: 05/26/16 10:24:00 CDT Start Date: 05/26/16 Status: Ordered Results No data available for this section Immunizations No data available for this section Procedures Procedure Date Related Diagnosis Body Site Fracture care1 2011 Colonoscopy 2010 Hernia repair 1984 Amputation great toe ORIF - Open reduction and internal fixation of fracture2 1right [id number] Fracture Social History No data available for this section Assessment and Plan No data available for this section
[2016-09-11 09:09] LABS: Hematocrit 32.2 % (42.0-52.0); Hemoglobin 10.8 gm/dL (13.5-18.0); Mean Cell Volume 85.9 fl (78-100); Mean Corpuscular Hemoglobin 28.8 pg (27-31); Mean Corpuscular Hgb Conc 33.5 g/dl (32-36); Mean Platelet Volume 9.3 fl (6.0-9.5); Neutrophil # 17.4 K/mm3 (1.3-6.0); Neutrophil % 88.2 % (42-75.0); Platelet Count 213 K/mm3 (150-450); Red Blood Count 3.75 M/mm3 (4.7-6.0); Red Cell Distribution Width 13.7 % (11.5-14.0); White Blood Count 19.7 K/mm3 (4.0-10.5)
[2016-09-11 09:21] LABS: Prothrombin Time (Patient) 19.7 Seconds (9.4-11.4)
[2016-09-11 09:25] LABS: INR 1.89 INR (0.90-1.10)
[2016-09-11 09:29] LABS: Albumin * 2.6 gm/dl (3.4-5.0); Anion Gap 12.1 mmol/L (6.8-13.8); BUN/Creatinine Ratio 18.6 (9.0-21.6); Bilirubin, Total 0.7 mg/dL (0.0-1.1); Ca. Corrected For Albumin 9.2 mg/dL (8.4-10.2); Calcium * 8.4 mg/dL (7.9-10.9); Carbon Dioxide 27.9 mmol/L (24-32.6); Total Protein 7.2 gm/dL (6.2-8.2); Troponin I 0.023 ng/ml (0.00-0.10)
[2016-09-11] MEDS ORDERED: ACETAMINOPHEN 325 MG TABLET ONE (11:02)
[2016-09-11] MEDS ORDERED: ACETAMINOPHEN 325 MG TABLET PO ONE (11:04)
[2016-09-11 11:18] LABS: Urine Bilirubin Negative (NEGATIVE); Urine Blood 50 /ul (NEGATIVE); Urine Ketone 5 mg/dL (NEGATIVE); Urine Nitrite Negative (NEGATIVE); Urine Protein 100 mg/dL (NEGATIVE); Urine Specific Gravity 1.025 SP.GR. (1.005-1.030); Urine Urobilinogen Normal (NORMAL)
[2016-09-11 11:30] LABS: Urine Appearance Clear; Urine Bacteria TRACE; Urine Color Yellow; Urine WBC 0-5 /hpf (0-5)
--- NOTE | 2016-09-11 12:31 | HP ---
Chief Complaint - Chief Complaint Date of Service: 09/11/16 Time of Service: 12:23 Chief Complaint: fever History of Present Illness: Ke Roa, is a 65-year-old white male, with previous medical history of Charcot foot due to diabetes mellitus and diabetic neuropathy, chronic renal failure stage III , peripheral arterial disease , hypertension, umbilical hernia, small without obstruction, who was admitted on 09/11/2016 because of fever. The patient said that for the last few days he has been getting weaker and yesterday started having fever. He was recently in the emergency room on 02/07 for a fall/dizziness and was sent home for fractured left ribs on xray. He denied any coughing, denied any nausea or vomiting diarrhea or constipation. He said that his last bowel movement was 2 days ago but this is normal for him as he usually has a bowel habit of every 2-3 days. Because his fever persisted he was brought to the emergency room today where he was found to have a temperature of 38.7 Tmax. His white blood cell count was elevated at 19.7 with left shift. His CT scan of his head showed no acute intracranial process but correlate for probable normal pressure hydrocephalus. His CT scan of his chest showed no acute cardiopulmonary findings noted except for trace pleural effusion and pericardial effusion. It showed no rib fractures. His CT scan of his abdomen shows abnormal gas bowel pattern, partial small bowel obstruction cannot be excluded, small umbilical hernia. . He does have an open ulcer of his left foot which is being followed up by our machine splitter here. On his last visit he was told that this also was getting smaller and improving. - Patient's Past Medical History Patient History - Medical: Diabetes Type 1 Patient History - Cardiac/Respiratory: Atrial Fibrillation, Hypertension, Pneumonia, Other Patient History - Cancer: No Hx of Cancer Patient History - Surgical Procedures: Total Hip Replacement Patient History - Other: None - Family History Mother Family History - Medical: , History Unknown Father Family History - Medical: - Social History Living Situations: home Abuse History: No History of abuse Psych History: No pertinent hx Does anyone smoke in the home?: No Smoking Status: Never smoker Alcohol Use: none Drug Use: none - Immunizations Immunizations Up to Date: Yes Hx Pneumococcal Vaccination: No History of Influenza Vaccine: Yes Review Of Systems (GEN) - Review of Systems Generalized/Overall Review: Present: Weakness, Fever EENTM: Present: No Symptoms Reported Respiratory: Absent: Cough, Shortness of Breath, Wheezing Cardiac: Absent: Chest Pain, Edema, Palpitations Abdominal: Absent: Nausea, Vomiting, Abdominal Pain, Constipation, Diarrhea Genitourinary: Absent: Urgency, Frequency Musculoskeletal: Present: Joint Pain Immunizations: IMMUNIZATION HX Immunizations Up to Date Yes History of Influenza Vaccine Yes Hx Pneumococcal Vaccination No Allergies/Adverse Reactions: Allergies Allergy/AdvReac Type Severity Reaction Status Date / Time No Known Allergies Allergy Verified 09/11/16 09:02 Home Medications: HOME MEDICATIONS Insulin Glargine,Hum.rec.anlog [Lantus] 15 units SQ HS 12/24/11 [Last Taken 01/08] Multivitamin [Multivitamins] 1 tab PO DAILY 12/24/11 [Last Taken 09/01/16] [place]-3 Fatty Acids [Fish Oil] 1 tab PO DAILY 12/24/11 [Last Taken 09/01/16] Iron 325 mg PO TID 09/27/15 [Last Taken 09/01/16] Losartan Potassium [Cozaar] 50 mg PO DAILY 09/27/15 [Last Taken 09/01/16] Warfarin Sodium 7.5 mg PO SUTUTHSA 09/27/15 [Last Taken 09/01/16] Warfarin Sodium [Coumadin] 5 mg PO MOWEFR 09/27/15 [Last Taken 09/01/16] Cholecalciferol (Vitamin D3) [Vitamin D3] 2,000 unit PO DAILY 02/04/16 [Last Taken 09/01/16] Polyethylene Glycol 3350 [Miralax] 17 gm PO PRN PRN 02/04/16 [Last Taken ] Acetaminophen [Tylenol] 650 mg PO Q4H PRN #30 tablet 02/07/16 [Last Taken ] Albuterol Sulfate [Proair Hfa] 1 - 2 puff IH Q4H PRN #1 inhaler 02/07/16 [Last Taken 09/01/16] Albuterol Sulfate/Ipratropium [Duoneb 2.5-0.5MG/3ML Soln] 3 ml IH QID #150 vial 07/30/16 [Last Taken 09/01/16] Insulin Lispro [Humalog] 5 units SQ AC 07/30/16 [Last Taken 09/01/16] Albuterol Sulfate/Ipratropium [Duoneb 2.5-0.5MG/3ML Soln] 3 ml IH BID PRN [Last Taken 09/01/16] oxyCODONE HCL/ACETAMINOPHEN [Percocet 5 MG/325 MG] 1 tab PO Q4H PRN #30 tab 02/07 [Last Taken Unknown] Exam - Exam Vital Signs: Vital Signs - Last Taken Temp 38.7 C H 09/11/16 11:32 Pulse 86 09/11/16 11:59 Resp 15 09/11/16 11:59 BP 143/77 09/11/16 11:59 Pulse Ox 96 09/11/16 11:59 Constitutional: Present: Alert, Oriented x3, Cooperative, Thin and frail ENT Exam: Present: hearing grossly normal Eye Exam: bilateral eye: PERRL, EOMI Neck: Present: supple Back Exam: Present: no CVA tenderness Breasts: Present: Exam deferred Respiratory: Present: normal breath sounds, No rales, No wheezing Cardiovascular/Chest: Present: regular rate, rhythm, no JVD, no murmur Abdomen: Present: Normal bowel sounds, soft, nontender, nondistended Extremity: Present: no pedal edema, no calf tenderness, other - positve charcot foot , with deformities, left foot wrapped in a clean bandage. Diagnostic Studies: Laboratory Results WBC 19.7 K/mm3 (4.0-10.5) H 09/11/16 09:03 RBC 3.75 M/mm3 (4.7-6.0) L 09/11/16 09:03 Hgb 10.8 gm/dL (13.5-18.0) L 09/11/16 09:03 Hct 32.2 % (42.0-52.0) L 09/11/16 09:03 MCV 85.9 fl (78-100) 09/11/16 09:03 MCH 28.8 pg (27-31) 09/11/16 09:03 MCHC 33.5 g/dl (32-36) 09/11/16 09:03 RDW 13.7 % (11.5-14.0) 09/11/16 09:03 Plt Count 213 K/mm3 (150-450) 09/11/16 09:03 MPV 9.3 fl (6.0-9.5) 09/11/16 09:03 Immature Gran % (Auto) 1.10 % (0.001-0.429) H 09/11/16 09:03 Immature Gran # (Auto) 0.21 K/mm3 (0.000-0.0310) H 09/11/16 09:03 Neutrophils % 88.2 % (42-75.0) H 09/11/16 09:03 Lymphocytes % 3.7 % (20-51) L 09/11/16 09:03 Monocytes % 6.8 % (0.0-9) 09/11/16 09:03 Eosinophils % 0.0 % (0.0-3.0) 09/11/16 09:03 Basophils % 0.2 % (0.0-1.0) 09/11/16 09:03 Nucleated RBC % 0.0 k/mm3 (0-1) 09/11/16 09:03 Neutrophils # 17.4 K/mm3 (1.3-6.0) H 09/11/16 09:03 Lymphocytes # 0.7 k/mm3 (1.5-3.5) L 09/11/16 09:03 Monocytes # 1.3 k/mm3 (0.0-1.0) H 09/11/16 09:03 Eosinophils # 0.0 k/mm3 (0.0-0.7) 09/11/16 09:03 Absolute Basophils 0.0 k/mm3 (0.0-0.1) 09/11/16 09:03 PT 19.7 Seconds (9.4-11.4) H 09/11/16 09:03 INR (Anticoag Therapy) 1.89 INR (0.90-1.10) H 09/11/16 09:03 Sodium 130 mmol/L (132-142) L 09/11/16 09:03 Plasma Sodium 134 mmol/L (130-142) 09/11/16 09:03 Potassium 4.0 mmol/L (3.4-4.6) 09/11/16 09:03 Chloride 94 mmol/L (97-106) L 09/11/16 09:03 Carbon Dioxide 27.9 mmol/L (24-32.6) 09/11/16 09:03 Anion Gap 12.1 mmol/L (6.8-13.8) 09/11/16 09:03 BUN 32 mg/dL (6-23) H 09/11/16 09:03 Creatinine 1.72 mg/dL (0.4-1.4) H 09/11/16 09:03 Est GFR (Non-Af Amer) 43 mL/min (60-130) L 09/11/16 09:03 BUN/Creatinine Ratio 18.6 (9.0-21.6) 09/11/16 09:03 Random Glucose 380 mg/dL (70-110) H 09/11/16 09:03 Lactic Acid, Venous 1.3 mmol/L (0.4-1.9) 09/11/16 09:03 Calcium 8.4 mg/dL (7.9-10.9) 09/11/16 09:03 Calcium Adj for Albumin 9.2 mg/dL (8.4-10.2) 09/11/16 09:03 Total Bilirubin 0.7 mg/dL (0.0-1.1) 09/11/16 09:03 AST 17 U/L (0-48) 09/11/16 09:03 ALT 21 U/L (19-67) 09/11/16 09:03 Alkaline Phosphatase 127 U/L (50-170) 09/11/16 09:03 Troponin I 0.023 ng/ml (0.00-0.10) 09/11/16 09:03 Total Protein 7.2 gm/dL (6.2-8.2) 09/11/16 09:03 Albumin 2.6 gm/dl (3.4-5.0) L 09/11/16 09:03 Lipase 74 U/L (73-393) 09/11/16 09:03 Urine Color Yellow 09/11/16 11:10 Urine Appearance Clear 09/11/16 11:10 Urine pH 6.0 pH (5.0-7.0) 09/11/16 11:10 Ur Specific [place] 1.025 SP.GR. (1.005-1.030) 09/11/16 11:10 Urine Protein 100 mg/dL (NEGATIVE) H 09/11/16 11:10 Urine Glucose (UA) >=1000 mg/dL (NEGATIVE) H 09/11/16 11:10 Urine Ketones 5 mg/dL (NEGATIVE) 09/11/16 11:10 Urine Blood 50 /ul (NEGATIVE) H 09/11/16 11:10 Urine Nitrate Negative (NEGATIVE) 09/11/16 11:10 Urine Bilirubin Negative mg/dl (NEGATIVE) 09/11/16 11:10 Prot Sulfosalicylic Acd 3+ mg/dL (0) H 09/11/16 11:10 Urine Urobilinogen Normal EU/dl (NORMAL) 09/11/16 11:10 Ur Leukocyte Esterase Negative /ul (NEGATIVE) 09/11/16 11:10 Urine RBC 10-25 /hpf (0-5) H 09/11/16 11:10 Urine WBC 0-5 /hpf (0-5) 09/11/16 11:10 Ur Epithelial Cells 0-5 /hpf (0-5) 09/11/16 11:10 Urine Bacteria Trace (NONE) 09/11/16 11:10 Urine Culture Comments No culture indicated 09/11/16 11:10 Assessment/Plan - Assessment/Plan (1) Fever Assessment: likely infectious- GIT ( PSBO) vs Musculoskeletal ( Diabetic Ulcer r/o OM). Dr. downs and Dr. carty consulted. Will keep patient on NPO. Will change IV antibiotics to Zosyn for now to cover possible GI/Musculoskeletal . Consider Vanco. Problem: Acute Qualifiers: Fever type: unspecified Qualified Code(s): R50.9 - Fever, unspecified (2) Leukocytosis Assessment: likely infectious. Problem: Acute (3) Peripheral arterial disease Problem: Acute (4) Charcot foot due to diabetes mellitus Problem: Acute (5) Anemia Problem: Acute Qualifiers: Anemia type: unspecified type Qualified Code(s): D64.9 - Anemia, unspecified (6) Diabetic foot ulcer Problem: Acute Qualifiers: Diabetic foot ulcer location: unspecified part of foot Diabetes mellitus type: type 1 Laterality: left Non-pressure ulcer stage: unspecified non- pressure ulcer stage Qualified Code(s): E10.621 - Type 1 diabetes mellitus with foot ulcer; L97.529 - Non-pressure chronic ulcer of other part of left foot with unspecified severity (7) Diabetes mellitus Problem: Acute Qualifiers: Diabetes mellitus type: type 2 Diabetes mellitus complication status: with kidney complications Diabetes mellitus complication detail: with chronic kidney disease Diabetes mellitus fpc insulin use: with fpc use Chronic kidney disease stage: stage 3 (moderate) Qualified Code(s): E11.22 - Type 2 diabetes mellitus with diabetic chronic kidney disease; N18.3 - Chronic kidney disease, stage 3 (moderate); Z79.4 - MCFP (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 (8) CKD (chronic kidney disease) Problem: Chronic Qualifiers: Chronic kidney disease stage: stage 3 (moderate) Qualified Code(s): N18.3 - Chronic kidney disease, stage 3 (moderate)
[2016-09-11] MEDS ORDERED: ALBUTEROL SULFATE 2.5 MG/3 ML VIAL.NEB IH PRN (12:56)
[2016-09-11] MEDS: PIPERACILLIN SODIUM/TAZOBACTAM 3.375 GM in DEXTROSE 5 % IN WATER 100 ML IV SCH ×4 (14:03→21:12)
[2016-09-11] MEDS ORDERED: INSULIN LISPRO 100 UNITS/ML VIAL SC SCH (17:00)
[2016-09-11] MEDS: INSULIN LISPRO 100 UNITS/ML VIAL SC SCH (17:19)
[2016-09-11] MEDS: POLYETHYLENE GLYCOL 3350 119 GM BTL PO SCH (17:31)
--- NOTE | 2016-09-11 17:56 | CONS ---
- Reason for consultation (1) Partial small bowel obstruction Date of Service: 09/11/16 Reason for Consultation:: The patient is a 65-year-old male with whom I am familiar. He fell in the bathroom on Wednesday and was seen in the emergency room with a diagnosis of left-sided rib fractures and nondisplaced scapular fracture. He states that for the past 2 days he has been very unsteady and cannot get his balance. He does not describe vertigo. He's had no headaches. In the emergency room he had a head CT which suggests disproportional ventricular enlargement compared to previous scan in 2010. Chest CT revealed no acute process. The abdomen CT ( without oral contrast) raised a question of small bowel dilation and ask for clinical correlation regarding possible partial small bowel obstruction. Patient also has a fever, elevated white blood cell count, and elevations in CRP and ESR. He is followed by Dr. Quinn for chronic diabetic ulcer and Charcot foot on the left. His is changing the aqua cell AG and gauze dressing daily and he is seen in the wound center about every month. He missed his most recent appointment there due to the fall. The has not changed the dressing for 2 days. She reports that the wound has become progressively smaller. He is due to be seen again in the wound center next week. Dr. Quinn will see him when she gets back on Wednesday. [facility] - General Date of Service: 09/11/16 Narrative: The patient is a 65-year-old male with whom I am familiar. He fell in the bathroom on Wednesday and presented to the ER where he was found to have left rib fractures and a nondisplaced fracture of the left scapular spine seen on plain films. Today he presented with a 2 day history of feeling very unsteady. He was found to be febrile with an elevated white blood cell count, CRP, and ESR. CT scan of the chest revealed no acute findings (rib fractures are not mentioned) and an abdominal CT scan (without oral contrast) brace to question of possible small bowel obstruction and I was asked to see the patient. The patient is also currently being treated for a diabetic ulcer on his left foot with Charcot foot. He is followed in the wound clinic monthly and his changes the aqua cell AG and gauze dressing daily at home. He missed his most recent wound center appointment due to the fall however scheduled to be seen there next week and Dr. Quinn will see him on Wednesday when she gets back. The states the wound has becomes progressively smaller and the wound center is pleased with the progress. She has not been able to change the dressing for 2 days. Source: patient, family, RN/MD, RN notes reviewed, old records, other - CT scans and x-rays reviewed Exam Limitations: no limitations - History of Present Illness Initial Comments: The patient has apparently been feeling weak and unsteady, hence the following Wednesday. Since then however the unsteadiness has become progressively worse. Timing/Duration: other Severity: moderate Modifying Factors - (Worsens): Reports: movement Modifying Factors - (Improves): Reports: rest Associated Symptoms: weakness Allergies/Adverse Reactions: Allergies No Known Allergies Allergy (Verified 09/11/16 15:59) Home Medications: Home Medications Medication Instructions Recorded Last Taken Insulin Glargine,Hum.rec.anlog 15 units SQ HS 12/24/11 09/01/16 [Lantus] Multivitamin [Multivitamins] 1 tab PO DAILY 12/24/11 09/01/16 [place]-3 Fatty Acids [Fish Oil] 1 tab PO DAILY 12/24/11 09/01/16 Iron 325 mg PO TID 09/27/15 09/01/16 Losartan Potassium [Cozaar] 50 mg PO DAILY 09/27/15 09/01/16 Warfarin Sodium 7.5 mg PO SUTUTHSA 09/27/15 09/01/16 Warfarin Sodium [Coumadin] 5 mg PO MOWEFR 09/27/15 09/01/16 Cholecalciferol (Vitamin D3) 2,000 unit PO DAILY 02/04/16 09/01/16 [Vitamin D3] Polyethylene Glycol 3350 [Miralax] 17 gm PO PRN PRN 02/04/16 09/01/16 Insulin Lispro [Humalog] 5 units SQ AC 07/30/16 09/01/16 Albuterol Sulfate/Ipratropium 3 ml IH BID PRN 09/02/16 09/01/16 [Duoneb 2.5-0.5MG/3ML Soln] - Patient's Past Medical History Patient History - Medical: Diabetes Type 1 Patient History - Cardiac/Respiratory: Atrial Fibrillation, Hypertension, Pneumonia, Other Patient History - Cancer: No Hx of Cancer Patient History - Surgical Procedures: Total Hip Replacement Patient History - Other: None - Family History Mother Family History - Medical: , History Unknown Father Family History - Medical: - Social History Living Situations: home Abuse History: No History of abuse Psych History: No pertinent hx Does anyone smoke in the home?: No Smoking Status: Never smoker Have you smoked in the past 12 months: No Do you dip or chew tobacco: No Alcohol Use: none Drug Use: none - Immunizations Immunizations Up to Date: Yes Hx Pneumococcal Vaccination: No History of Influenza Vaccine: Yes Procedures CL REDUC DISLOC-HAND/FNG (02/06/06) COLONOSCOPY (04/18/10) DPT ADMINISTRATION (10/14/11) EXCISION FOOT JOINT NEC (03/17/06) LINEAR REP LID LACER (05/01/01) LOC EXC BONE LESION NEC (04/04/03) LOC EXC LES METATAR/TAR (11/04/07) NONEXCIS DEBRID OF WOUND, INFECT, OR BURN (05/27/06) OP RED-INT FIX RAD/ULNA (05/02/01) OPEN REDUC-INT FIX FEMUR (12/18/11) PART OSTECT-METATAR/TAR (11/04/07) SKIN REPAIR & PLASTY NEC (07/01/07) TOE AMPUTATION (08/07/10) Medications - Medications Current Medications: Current Medications Sodium Chloride (Sodium Chloride 0.9%) 1,000 mls @ 150 mls/hr IV .Q6H40M PRN PRN Reason: HYDRATION Stop: 10/11/16 08:55 Last Infusion: 09/11/16 11:41 Dose: 999 mls/hr Piperacillin Sod/Tazobactam (Sod 3.375 gm/ Dextrose/Water) 100 mls @ 25 mls/hr IV Q8H JR PRN Reason: Protocol Stop: 10/11/16 13:31 Last Admin: 09/11/16 14:03 Dose: 25 mls/hr Insulin Human Lispro (Humalog) 0 - 21 units SC ACINS JR PRN Reason: Protocol Stop: 10/11/16 17:01 Last Admin: 09/11/16 17:19 Dose: 9 units Polyethylene Glycol (Miralax) 17 gm PO DAILY JR Stop: 08/20/17 17:31 Last Admin: 09/11/16 17:31 Dose: 17 gm Review of Systems - Review of Systems Generalized/Overall Review: Present: Weakness EENTM: Present: Other - Specifically denies headache or focal neurologic symptoms. There's just very unsteady and weak Respiratory: Present: Other - It hurts to take a deep breath from the rib fractures Cardiac: Present: No Symptoms Reported Abdominal: Present: Other - He specifically denies abdominal pain nausea or vomiting. He generally only moves his bowels about every 3 days. He had been taking generic MiraLAX but stopped. Absent: Abdominal Pain Genitourinary: Present: No Symptoms Reported Musculoskeletal: Present: Other - The wound on his left foot is getting better by reports Neurological: Present: Weakness. Absent: Headache, Seizure Skin: Present: Other - He has a chronic/slow to heal ulcer on his left foot Physical Examination - Exam Vital Signs: Vital Signs - Last Taken Temp 36.4 C L 09/11/16 15:50 Pulse 74 09/11/16 15:50 Resp 18 09/11/16 15:50 BP 161/80 09/11/16 15:50 Pulse Ox 92 09/11/16 15:50 O2 Oxygen Delivery Method Room Air Constitutional: Present: Alert, Oriented x3, Cooperative, No distress, Looks Older than stated age ENT Exam: Present: other - Poor dentition Eye Exam: bilateral eye: normal inspection Neck: Present: full range of motion, normal inspection Respiratory: Present: other - Tender over the left ribs, decreased inspiratory effort Cardiovascular/Chest: Present: normal peripheral pulses Abdomen: Present: soft, nontender, nondistended /Rectal: Present: Exam deferred Extremity: Present: normal range of motion, other - Intact dressing left foot Skin Exam: Present: warm/dry Neurologic: Present: electrical maintenance engineer II-XII nml as tested Appearance: Present: disheveled Eye contact: Present: cooperative, good eye contact, decreased rate of speech Thoughts: Present: normal thought pattern - Results and Findings: Narrative: Abdomen x-ray reveals increased colonic and small bowel gas, unchanged from portions of the abdomen included on rib films done on the . CT scan of the abdomen without contrast initially suggested increased small bowel gas or fluid with a small umbilical hernia. Plain films of the chest demonstrated left rib fractures which are not mentioned on CT scan. - Assessments/Findings (1) Partial small bowel obstruction Diagnosis(s): The patient has a history of chronic constipation. The CT findings are nonspecific and the exam is entirely benign with a readily reducible umbilical hernia, no abdominal tenderness, and the patient specifically denies any abdominal pain or tenderness. Impression: No clinical evidence of small bowel obstruction Recommendation: The patient may be fed Problem: Ruled-out
[2016-09-11] MEDS ORDERED: INSULIN GLARGINE,HUM.REC.ANLOG 100 UNITS/ML VIAL SC SCH (21:00)
[2016-09-11] MEDS: INSULIN GLARGINE,HUM.REC.ANLOG 100 UNITS/ML VIAL SC SCH (21:13)
[2016-09-11] MEDS: ALBUTEROL SULFATE/IPRATROPIUM 3 ML NEBU IH PRN (21:22)
[2016-09-12] MEDS: PIPERACILLIN SODIUM/TAZOBACTAM 3.375 GM in DEXTROSE 5 % IN WATER 100 ML IV SCH ×6 (04:30→21:25)
[2016-09-12 06:09] LABS: Hematocrit 30.1 % (42.0-52.0); Hemoglobin 9.8 gm/dL (13.5-18.0); Mean Corpuscular Hemoglobin 28.3 pg (27-31); Mean Corpuscular Hgb Conc 32.6 g/dl (32-36); Mean Platelet Volume 10.8 fl (6.0-9.5); Platelet Count 209 K/mm3 (150-450); Red Blood Count 3.46 M/mm3 (4.7-6.0); Red Cell Distribution Width 13.9 % (11.5-14.0); White Blood Count 17.1 K/mm3 (4.0-10.5)
[2016-09-12 06:23] LABS: Anion Gap 10.9 mmol/L (6.8-13.8); BUN/Creatinine Ratio 18.3 (9.0-21.6); Calcium * 8.2 mg/dL (7.9-10.9); Estimated Creat Clear 47.8; Potassium 3.9 mmol/L (3.4-4.6)
[2016-09-12 06:32] LABS: Total Cells Counted 100
[2016-09-12 06:45] LABS: Band 3 % (0-2.0); Lymphocyte 4 % (20-51); Monocyte 5 % (0-9); Neutrophil 88 % (42-75); Platelet Estimate Normal (NORMAL); RBC Morphology Normal (NORMAL)
[2016-09-12] MEDS: INSULIN LISPRO 100 UNITS/ML VIAL SC SCH ×7 (07:45→17:15)
[2016-09-12] MEDS: POLYETHYLENE GLYCOL 3350 119 GM BTL PO SCH (09:08)
[2016-09-12] MEDS: LOSARTAN POTASSIUM 50 MG TABLET PO SCH (09:08)
[2016-09-12] MEDS: ACETAMINOPHEN 325 MG TABLET PO PRN ×2 (09:08→15:22)
[2016-09-12 09:41] LABS: Hemoglobin A1C 9.3 % (4.00-6.0)
[2016-09-12] MEDS: SACCHAROMYCES BOULARDII 250 MG CAPSULE PO SCH ×2 (10:11→21:24)
[2016-09-12] MEDS: VANCOMYCIN HCL 1 GM in DEXTROSE 5 % IN WATER 250 ML IV SCH ×2 (10:12)
[2016-09-12] MEDS: traMADol HCL 50 MG TABLET PO PRN (13:01)
[2016-09-12] MEDS: INSULIN GLARGINE,HUM.REC.ANLOG 100 UNITS/ML VIAL SC SCH (21:52)
[2016-09-12] MEDS: ALBUTEROL SULFATE/IPRATROPIUM 3 ML NEBU IH PRN (21:56)
[2016-09-13] MEDS: PIPERACILLIN SODIUM/TAZOBACTAM 3.375 GM in DEXTROSE 5 % IN WATER 100 ML IV SCH ×2 (05:14)
[2016-09-13 06:11] LABS: INR 1.44 INR (0.90-1.10); Partial Thrombolplastin Time 40.9 Seconds (24-32)
[2016-09-13] MEDS: INSULIN GLARGINE,HUM.REC.ANLOG 100 UNITS/ML VIAL SC SCH ×3 (06:54→21:54)
[2016-09-13] MEDS: INSULIN LISPRO 100 UNITS/ML VIAL SC SCH ×6 (07:37→17:23)
[2016-09-13] MEDS: POLYETHYLENE GLYCOL 3350 119 GM BTL PO SCH (08:41)
[2016-09-13] MEDS: SACCHAROMYCES BOULARDII 250 MG CAPSULE PO SCH ×2 (08:41→21:53)
[2016-09-13] MEDS: LOSARTAN POTASSIUM 50 MG TABLET PO SCH (08:41)
[2016-09-13] MEDS: VANCOMYCIN HCL 1 GM in DEXTROSE 5 % IN WATER 250 ML IV SCH ×2 (08:42)
[2016-09-13] MEDS ORDERED: ONDANSETRON HCL/PF 2 MG/ML VIAL IV PRN (09:49)
--- NOTE | 2016-09-13 10:00 | PN ---
Subjective - Date and Time Seen Date: 09/12/16 Time: 17:00 Subjective Narrative: doing fairly well, no pain in foot, only pain in back not relieved by tylenol. blood sugars in 300s-400s. Occasionally short of breath requiring nebulizer treatments. No history of smoking. max temp 38.7C. Objective - Review of Systems Respiratory: Reports: Cough Cardiac: Denies: Chest Pain, Edema Musculoskeletal Complaints: Reports: Back Pain - chronic - Vitals Vitals: Vital signs 09/12/16 11:32 Temperature 36.8 C Pulse Rate 83 Resp Rate 18 Blood Pressure 120/59 O2 Sat 95% RA - Abnormal Lab Findings Abnormal Lab Findings: Laboratory Tests 09/12/16 05:10 Plasma Sodium 136 Potassium 3.9 Chloride 96 L Carbon Dioxide 29.0 BUN 31 H Creatinine 1.69 H Est GFR (Non-Af Amer) 44 L Random Glucose 372 H 09/12/16 05:10 WBC 17.1 H Hgb 9.8 L Hct 30.1 L Plt Count 209 Neutrophils % (Manual) 88 H Band Neuts % (Manual) 3 H 09/12/16 05:10 Mean Blood Glucose 224 Hemoglobin A1c 9.3 H - Exam Constitutional: Present: Middle aged, Thin and frail, Looks Older than stated age - in no acute distress. ENT Exam: Present: hearing grossly normal, moist mucous membranes - poor dentition. Neck: Present: normal inspection, trachea midline Respiratory: Present: normal breath sounds - few crackles bilaterally Cardiovascular/Chest: Present: regular rate, rhythm, systolic murmur Abdomen: Present: Normal bowel sounds, soft, nontender Extremity: Present: other - deformity of LT foot present. ulcer under plantar aspect of LT foot draining purulent material[reportedly 1.8 cm by x-ray]. Skin Exam: Present: warm/dry, pallor Eye contact: Present: cooperative, good eye contact, normal speech - alert and oriented X3 Assessment/Plan Plan Narrative: 1. Bacteremia [possible]: Gram stain showing gram-positive cocci in clusters. Add vancomycin 1 g IV every 12 hours in addition to piperacillin/tazobactam. Pharmacy to follow levels. Add florastor[ probiotics] 250 mg PO BID. 2. T1 DM: Poorly controlled. A1c 9.3%[224 mg/dL] may be underrepresented due to anemia. Increase Lantus from 15 units SQ HS to 15 units SQ BID. 3. Chronic LBP: Not responding to Tylenol. Start tramadol 50 mg PO Q6H PRN for pain. 4. Ulcer on LT foot: Plain x-ray shows foot to be 1.8 cm long. Use Aquacel with 4 x 4's followed by [facility]. Dr. Quinn to see patient on 09/14/16. MRI of foot pending. Post op shoe for ambulating. 5. Other chronic problems: Other chronic medical problems including anemia, CKD stage III, A. fib on chronic warfarin therapy, TONY, HTN, bronchospasm on inhalers which are stable.
[2016-09-13] MEDS ORDERED: INSULIN LISPRO 100 UNITS/ML VIAL SC SCH (10:02)
[2016-09-13 10:13] LABS: Iron 19 mcg/dL (35-120); Transferrin Sat. (% Sat.) 18 % (15-55)
[2016-09-13] MEDS: CHOLECALCIFEROL 5,000 UNIT TABLET PO SCH (11:49)
[2016-09-13] MEDS: MULTIVITAMIN/IRON/FOLIC ACID 1 TAB TABLET PO SCH (11:49)
[2016-09-13] MEDS: ACETAMINOPHEN 325 MG TABLET PO PRN ×2 (11:58→22:04)
--- NOTE | 2016-09-13 12:21 | PN ---
Subjective - Date and Time Seen Date: 09/13/16 Time: 12:19 Subjective Narrative: Continues to have purulent drainage from LT foot. Occasional back pain. No foot pain; no fevers or chills. MRI pending. Objective - Review of Systems Generalized/Overall Review: Denies: Chills, Fever, Malaise Respiratory: Denies: Cough, Shortness of Breath Cardiac: Denies: Chest Pain, Edema Musculoskeletal Complaints: Reports: Back Pain - Vitals Vitals: Vital Signs Temp 36.9 C 09/13/16 10:00 Pulse 88 09/13/16 10:00 Resp 18 09/13/16 10:00 BP 122/62 09/13/16 10:00 Pulse Ox 97 09/13/16 10:00 - Abnormal Lab Findings Abnormal Lab Findings: Laboratory Tests 09/13/16 05:25 PT 15.0 H INR (Anticoag Therapy) 1.44 H PTT ([place]) 40.9 H Iron 19 L TIBC 103L Transferrin % Sat 18 Vitamin B12 >1999 - Exam Constitutional: Present: Middle aged, Thin and frail, Looks Older than stated age - alert and oriented x3 , in NAD ENT Exam: Present: moist mucous membranes, other - poor dentition. Neck: Present: normal inspection, trachea midline Respiratory: Present: lungs clear, normal breath sounds Cardiovascular/Chest: Present: regular rate, rhythm. Absent: tachycardia Extremity: Present: other - deformity of LT foot present. ulcer under plantar aspect of LT foot draining purulent material[reportedly 1.8 cm by x-ray]. Skin Exam: Present: warm/dry Assessment/Plan Plan Narrative: 1. Bacteremia Gram stain showing gram-positive cocci in clusters. On vancomycin 1 g IV every 12 hours in addition to piperacillin/tazobactam. Pharmacy to follow levels. Also on florastor[ probiotics] 250 mg PO BID. 2. T1 DM: Poorly controlled. A1c 9.3%[224 mg/dL] may be underrepresented due to anemia. Increase Lantus from 15 units SQ HS to 15 units SQ BID. Patient on Humalog with meals and a low dose sliding scale. 3. Chronic LBP: Not responding to Tylenol. On tramadol 50 mg PO Q6H PRN for pain. 4. Ulcer on LT foot due to DM: Plain x-ray shows foot to be 1.8 cm long. Use Aquacel with 4 x 4's followed by [place] [facility]. Dr. Quinn to see patient on 09/14/16. MRI of foot pending. Post op shoe for ambulating. 5: Peripheral arterial disease: May require ABIs if not done before 6. Other chronic problems: Other chronic medical problems including anemia, CKD stage III, A. fib on chronic warfarin therapy, TONY, HTN, bronchospasm on inhalers which are stable.
[2016-09-13] MEDS: PIPERACILLIN SODIUM/TAZOBACTAM 3.375 GM in NORMAL SALINE 100 ML IV SCH ×2 (14:30→21:53)
[2016-09-13] MEDS: traMADol HCL 50 MG TABLET PO PRN ×2 (15:19→22:05)
[2016-09-13] MEDS: ALBUTEROL SULFATE/IPRATROPIUM 3 ML NEBU IH PRN (15:19)
[2016-09-13] MEDS: WARFARIN SODIUM 7.5 MG TABLET PO SCH (17:21)
[2016-09-14] MEDS: PIPERACILLIN SODIUM/TAZOBACTAM 3.375 GM in NORMAL SALINE 100 ML IV SCH (04:51)
[2016-09-14 06:05] LABS: INR 1.35 INR (0.90-1.10)
[2016-09-14] MEDS: INSULIN LISPRO 100 UNITS/ML VIAL SC SCH ×4 (07:41→17:16)
[2016-09-14] MEDS: ALBUTEROL SULFATE/IPRATROPIUM 3 ML NEBU IH PRN (08:09)
--- NOTE | 2016-09-14 08:10 | PN ---
Subjective - Date and Time Seen Date: 09/14/16 Time: 08:10 Subjective Narrative: Patient NAD. Afebrile. BC showing MSSA. BS are elevated. Objective - Review of Systems Generalized/Overall Review: Reports: Weakness. Denies: Chills, Fever EENTM: Reports: No Symptoms Reported Respiratory: Denies: Cough, Shortness of Breath Cardiac: Denies: Chest Pain Abdominal: Denies: Nausea, Vomiting Genitourinary Symptoms: Denies: Urgency, Frequency Musculoskeletal Complaints: Reports: Joint Pain - Vitals Vitals: Last Vital Signs Temp 36.5 C 09/14/16 06:00 Pulse 74 09/14/16 06:00 Resp 18 09/14/16 06:00 BP 157/76 09/14/16 06:00 Pulse Ox 96 09/14/16 06:00 - Abnormal Lab Findings Abnormal Lab Findings: Abnormal Lab Results 09/13/16 09/13/16 09/14/16 Range/Units 05:25 05:25 05:35 PT 14.0 H (9.4-11.4) Seconds INR (Anticoag Therapy) 1.35 H (0.90-1.10) INR Iron 19 L (35-120) mcg/dL TIBC 103 L (260-445) mcg/dL Vitamin B12 Greater than 2000 H (193-986) pg/mL - Exam Constitutional: Present: Alert, Oriented x3, Cooperative ENT Exam: Present: normal ENT inspection Neck: Present: supple Breasts: Present: Exam deferred Respiratory: Present: normal breath sounds. Absent: No rales, No wheezing Cardiovascular/Chest: Present: regular rate, rhythm, no JVD, no murmur Extremity: Present: no pedal edema, no calf tenderness, other - positve ulcer, positive Charcot joint Assessment/Plan - Problems/Diagnosis (1) CKD (chronic kidney disease) Problem: Chronic Qualifiers: Chronic kidney disease stage: stage 3 (moderate) Qualified Code(s): N18.3 - Chronic kidney disease, stage 3 (moderate) Narrative: ADDENDUM: ARF on CRF. Cr jumped to 3.4. Likely vanco induced. Vanco d/c. will hol;d Losaratn for now and start Amlodpine. will start IVF with 0.9 NSS (also with mild hyponatremia) (2) Diabetic foot ulcer Problem: Acute Qualifiers: Diabetic foot ulcer location: unspecified part of foot Diabetes mellitus type: type 1 Laterality: left Non-pressure ulcer stage: unspecified non- pressure ulcer stage Qualified Code(s): E10.621 - Type 1 diabetes mellitus with foot ulcer; L97.529 - Non-pressure chronic ulcer of other part of left foot with unspecified severity Narrative: r/o OM. For MRI today. Dr. Quinn is going to see patient today. Blood culture growing Staph Aureus. Further plans will depend on MRI. If with soft tissue infection only, will change to oral antibiotics. If with OM will continue IV antibiotics for 6 weeks or lesser if the burden of infection is removed. (3) Fever Problem: Resolved Qualifiers: Fever type: unspecified Qualified Code(s): R50.9 - Fever, unspecified Narrative: afebrile since 09/11 (4) Leukocytosis Problem: Acute Narrative: will check CBC today. (5) Peripheral arterial disease Problem: Acute (6) Charcot foot due to diabetes mellitus Problem: Acute (7) Anemia Problem: Acute Qualifiers: Anemia type: unspecified type Qualified Code(s): D64.9 - Anemia, unspecified Narrative: Anemia of chronic disease. (8) Diabetes mellitus Problem: Acute Qualifiers: Diabetes mellitus type: type 2 Diabetes mellitus complication status: with kidney complications Diabetes mellitus complication detail: with chronic kidney disease Diabetes mellitus rodent exterminator insulin use: with rodent exterminator use Chronic kidney disease stage: stage 3 (moderate) Qualified Code(s): E11.22 - Type 2 diabetes mellitus with diabetic chronic kidney disease; N18.3 - Chronic kidney disease, stage 3 (moderate); Z79.4 - [facility] (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 Narrative: BS are elvated due to ongoing infection. insulin doses increased for now.
[2016-09-14 08:20] LABS: Hematocrit 29.8 % (42.0-52.0); Hemoglobin 9.6 gm/dL (13.5-18.0); Mean Cell Volume 88.7 fl (78-100); Mean Corpuscular Hemoglobin 28.6 pg (27-31); Mean Corpuscular Hgb Conc 32.2 g/dl (32-36); Neutrophil # 16.2 K/mm3 (1.3-6.0); Neutrophil % 89.2 % (42-75.0); Platelet Count 235 K/mm3 (150-450); Red Blood Count 3.36 M/mm3 (4.7-6.0); White Blood Count 18.1 K/mm3 (4.0-10.5)
[2016-09-14 08:24] LABS: Anion Gap 14.1 mmol/L (6.8-13.8); BUN/Creatinine Ratio 18.5 (9.0-21.6); Calcium * 7.7 mg/dL (7.9-10.9); Estimated Creat Clear 23.8; Potassium 4.1 mmol/L (3.4-4.6)
[2016-09-14] MEDS: traMADol HCL 50 MG TABLET PO PRN (09:19)
[2016-09-14] MEDS: SACCHAROMYCES BOULARDII 250 MG CAPSULE PO SCH ×2 (09:22→20:54)
[2016-09-14] MEDS: MULTIVITAMIN/IRON/FOLIC ACID 1 TAB TABLET PO SCH (09:22)
[2016-09-14] MEDS: POLYETHYLENE GLYCOL 3350 119 GM BTL PO SCH (09:28)
[2016-09-14] MEDS ORDERED: VANCOMYCIN HCL 1 GM in NORMAL SALINE 250 ML IV SCH (09:30)
[2016-09-14] MEDS ORDERED: ceFAZolin SODIUM 1 GM in DEXTROSE 5 % IN WATER 100 ML IV SCH ×2 (09:30)
[2016-09-14] MEDS: INSULIN GLARGINE,HUM.REC.ANLOG 100 UNITS/ML VIAL SC SCH ×2 (09:32→20:56)
[2016-09-14] MEDS: NORMAL SALINE 1,000 ML IV PRN ×2 (10:32→20:55)
[2016-09-14] MEDS ORDERED: amLODIPine BESYLATE 10 MG TABLET PO SCH (11:00)
[2016-09-14] MEDS: LOSARTAN POTASSIUM 50 MG TABLET PO SCH (11:00)
[2016-09-14] MEDS: CHOLECALCIFEROL 5,000 UNIT TABLET PO SCH (11:01)
[2016-09-14] MEDS: amLODIPine BESYLATE 10 MG TABLET PO SCH (11:01)
--- NOTE | 2016-09-14 14:10 | PN ---
Progess Note - Interim Narrative: 09/14/16 14:08 08/23/2016 left rib series- nondisplaced 8-10 rib fracture as well as left scapular fracture. CTS on 09/11/2016- Chronic appearing T 8 compression fracture and helaing right rib fractures.
[2016-09-14] MEDS: HYDROcodone/ACETAMINOPHEN 1 EACH TABLET PO PRN (14:34)
--- NOTE | 2016-09-14 15:18 | CONS ---
- Reason for consultation (1) Grade II diabetic ulcer left foot Date of Service: 09/14/16 HPI - General Date of Service: 09/14/16 Narrative: Pt evaluated at bedside for care of a chronic ulceration to his plantar left foot. He is a know patient of [facility] whom I have been following for several months for DM ulcer that has been progressively improving. He was admitted last week with fever and chills and found to have bacteremia. States that he is having back pain secondary to broken ribs following a fall sustained a couple of weeks ago. An MRI of his foot was attempted earlier today, however due to pain was postponed to later today after receiving pain medication. I was consulted for care of the ulceration and possible surgical care pending MRI results. Source: patient Exam Limitations: no limitations - History of Present Illness Allergies/Adverse Reactions: Allergies No Known Allergies Allergy (Verified 09/18/16 12:12) Home Medications: Home Medications Medication Instructions Recorded Last Taken Albuterol Sulfate/Ipratropium 3 ml IH TID PRN 09/02/16 09/01/16 [Duoneb 2.5-0.5MG/3ML Soln] - Patient's Past Medical History Patient History - Medical: Diabetes Type 1 Patient History - Cardiac/Respiratory: Atrial Fibrillation, Hypertension, Pneumonia, Other Patient History - Cancer: No Hx of Cancer Patient History - Surgical Procedures: Total Hip Replacement Patient History - Other: None - Family History Mother Family History - Medical: , History Unknown Father Family History - Medical: - Social History Living Situations: home Abuse History: No History of abuse Psych History: No pertinent hx Does anyone smoke in the home?: No Smoking Status: Never smoker Have you smoked in the past 12 months: No Do you dip or chew tobacco: No Alcohol Use: none Drug Use: none - Immunizations Immunizations Up to Date: Yes Hx Pneumococcal Vaccination: No History of Influenza Vaccine: Yes Procedures CL REDUC DISLOC-HAND/FNG (02/06/06) COLONOSCOPY (04/18/10) DPT ADMINISTRATION (10/14/11) EXCISION FOOT JOINT NEC (03/17/06) LINEAR REP LID LACER (05/01/01) LOC EXC BONE LESION NEC (04/04/03) LOC EXC LES METATAR/TAR (11/04/07) NONEXCIS DEBRID OF WOUND, INFECT, OR BURN (05/27/06) OP RED-INT FIX RAD/ULNA (05/02/01) OPEN REDUC-INT FIX FEMUR (12/18/11) PART OSTECT-METATAR/TAR (11/04/07) SKIN REPAIR & PLASTY NEC (07/01/07) TOE AMPUTATION (08/07/10) Medications - Medications Current Medications: Current Medications Acetaminophen (Tylenol) 650 mg PO Q4H PRN PRN Reason: Mild pain Stop: 10/11/16 12:57 Last Admin: 09/13/16 22:04 Dose: 650 mg Acetaminophen/Hydrocodone Bitart ([place] 5-325) 1 each PO Q6H PRN PRN Reason: Pain Stop: 10/14/16 14:30 Last Admin: 09/14/16 14:34 Dose: 1 each Albuterol/Ipratropium (Duoneb 2.5-0.5mg/3ml Soln) 3 ml IH BID PRN PRN Reason: Wheezing Stop: 10/11/16 12:57 Last Admin: 09/14/16 08:09 Dose: 3 ml Amlodipine Besylate (Norvasc) 10 mg PO DAILY COUNT INCLUDES THE [facility] Stop: 10/14/16 10:41 Last Admin: 09/14/16 11:01 Dose: 10 mg Cholecalciferol (Vitamin D) 5,000 unit PO DAILY@1200 JR Stop: 10/13/16 12:01 Last Admin: 09/14/16 11:01 Dose: 5,000 unit Sodium Chloride (Sodium Chloride 0.9%) 1,000 mls @ 100 mls/hr IV .Q10H PRN PRN Reason: HYDRATION Stop: 10/14/16 09:11 Last Admin: 09/14/16 10:32 Dose: 100 mls/hr Insulin Glargine (Lantus) 20 units SC BID JR Stop: 10/13/16 21:01 Last Admin: 09/14/16 09:32 Dose: 20 units Insulin Human Lispro (Humalog) 0 units SC AC JR PRN Reason: Protocol Stop: 10/12/16 07:41 Last Admin: 09/14/16 11:10 Dose: 20 units Multivitamins/Minerals (Certagen) 1 tab PO DAILY JR Stop: 10/13/16 10:01 Last Admin: 09/14/16 09:22 Dose: 1 tab Ondansetron HCl (Zofran) 4 mg IV Q4H PRN PRN Reason: Nausea Stop: 10/13/16 09:50 Last Admin: 09/14/16 09:47 Dose: 4 mg Polyethylene Glycol (Miralax) 17 gm PO DAILY COUNT INCLUDES THE [facility] Stop: 10/11/16 17:31 Last Admin: 09/14/16 09:28 Dose: 17 gm Saccharomyces Boulardii (Florastor) 250 mg PO BID COUNT INCLUDES THE [facility] Stop: 10/12/16 09:01 Last Admin: 09/14/16 09:22 Dose: 250 mg Warfarin Sodium (Coumadin) 7.5 mg PO DAILY@1700 COUNT INCLUDES THE [facility] Stop: 10/13/16 17:01 Last Admin: 09/13/16 17:21 Dose: 7.5 mg Review of Systems - Review of Systems Generalized/Overall Review: Present: Weakness, Fever Respiratory: Present: Shortness of Breath Musculoskeletal: Present: Other - Left foot pain Neurological: Present: Numbness Skin: Present: Other - Left foot ulceration Physical Examination - Exam Vital Signs: Vital Signs - Last Taken Temp 36.8 C 09/14/16 13:58 Pulse 81 09/14/16 13:58 Resp 18 09/14/16 13:58 BP 128/69 09/14/16 13:58 Pulse Ox 96 09/14/16 13:58 O2 Oxygen Delivery Method Room Air Constitutional: Present: Alert, Oriented x3, Cooperative Peripheral Pulses: dorsalis-pedis (R): 1+, dorsalis-pedis (L): 1+ Extremity: Present: other - bilateral Charcot foot deformity Skin Exam: Present: other - Ulceration to plantar surface of left foot measuring 2.1 x 2.1 x 0.1 cm. No tunneling or undermining. Loss of tissue to full thickness with exposure of subcutaneous fat layer. Base red, granular. Surrounding tissue hyperkeratotic, otherwise pink, intact. Minimal serous drainage, no malodor. No exposed tendon or bone. Neurologic: Present: sensory deficit Appearance: Present: appropriate appearance Eye contact: Present: cooperative - Results and Findings: Lab/Microbiology results last 24 hrs: Abnormal/Pending Laboratory Last 24 HRS 09/14/16 09/14/16 09/14/16 05:35 05:35 05:35 WBC 18.1 H RBC 3.36 L Hgb 9.6 L Hct 29.8 L MPV 11.0 H Immature Gran % (Auto) 0.60 H Immature Gran # (Auto) 0.10 H Neutrophils % 89.2 H Lymphocytes % 4.8 L Neutrophils # 16.2 H Lymphocytes # 0.9 L PT 14.0 H INR (Anticoag Therapy) 1.35 H Sodium 128 L Chloride 93 L Anion Gap 14.1 H BUN 63 H D Creatinine 3.40 H D Est GFR (Non-Af Amer) 19 L D Random Glucose 462 H Calcium 7.7 L - Assessments/Findings (1) Grade II diabetic ulcer left foot Diagnosis(s): Verbal consent obtained from patient for bedside debridement. Ulceration to plantar left foot debrided to subcutaneous tissue with #15 blade excising all hyperkeratotic tissue from the periphery of the ulceration revealing healthy, bleeding subcutaneous wound margins. Surface also debrided with #15 blade removing any devitalized tissue from the surface of the ulceration revealing a healthy, bleeding subcutaneous wound bed. Hemostasis with compression. Pt tolerated well. Dressed with Aquacel Ag, dry gauze, cale, and tape. Will continue with daily dressings with Aquacel Ag. Foot to be washed daily with soap and water prior to applying new dressings. Continue IV ABX at this time. Foot does not appear acutely infected at this time. Will await MRI results for further treatment planning. Problem: Chronic
[2016-09-14] MEDS ORDERED: HYDROmorphone HCL 1 MG/ML DISP.SYRIN IV SCH (15:30)
[2016-09-14] MEDS: WARFARIN SODIUM 7.5 MG TABLET PO SCH (17:14)
[2016-09-15] MEDS: ALBUTEROL SULFATE/IPRATROPIUM 3 ML NEBU IH PRN ×2 (01:29→14:11)
[2016-09-15] MEDS: NORMAL SALINE 1,000 ML IV PRN ×3 (06:05→23:21)
[2016-09-15 06:08] LABS: Hematocrit 27.7 % (42.0-52.0); Mean Cell Volume 87.7 fl (78-100); Mean Corpuscular Hemoglobin 28.5 pg (27-31); Mean Corpuscular Hgb Conc 32.5 g/dl (32-36); Mean Platelet Volume 10.3 fl (6.0-9.5); Neutrophil # 15.1 K/mm3 (1.3-6.0); Neutrophil % 88.8 % (42-75.0); Platelet Count 275 K/mm3 (150-450); Red Blood Count 3.16 M/mm3 (4.7-6.0)
[2016-09-15 06:10] LABS: Anion Gap 16.1 mmol/L (6.8-13.8); BUN/Creatinine Ratio 18.7 (9.0-21.6); Calcium * 7.8 mg/dL (7.9-10.9); Carbon Dioxide 23.4 mmol/L (24-32.6); Estimated Creat Clear 20.7; Potassium 4.5 mmol/L (3.4-4.6); Prothrombin Time (Patient) 17.8 Seconds (9.4-11.4)
[2016-09-15 06:20] LABS: INR 1.71 INR (0.90-1.10)
[2016-09-15] MEDS: INSULIN LISPRO 100 UNITS/ML VIAL SC SCH ×3 (07:30→17:25)
[2016-09-15] MEDS: ACETAMINOPHEN 325 MG TABLET PO PRN (07:39)
--- NOTE | 2016-09-15 08:07 | PN ---
Subjective - Date and Time Seen Date: 09/15/16 Time: 08:03 Subjective Narrative: Patient feeling better. MRI shows Carcot foot , OM cannot be entirely excluded, suspect infectious myositis. Afebrile. WBC 17. Objective - Review of Systems Generalized/Overall Review: Reports: Weakness. Denies: Chills, Fever EENTM: Reports: No Symptoms Reported Respiratory: Denies: Cough, Shortness of Breath, Orthopnea Cardiac: Denies: Chest Pain, Edema, Palpitations Abdominal: Denies: Nausea, Vomiting Genitourinary Symptoms: Denies: Urgency, Frequency Musculoskeletal Complaints: Reports: Joint Pain - Vitals Vitals: Last Vital Signs Temp 36.6 C 09/15/16 07:46 Pulse 92 09/15/16 07:46 Resp 20 09/15/16 07:46 BP 102/64 09/15/16 07:46 Pulse Ox 94 09/15/16 07:46 - Abnormal Lab Findings Abnormal Lab Findings: Abnormal Lab Results 09/14/16 09/14/16 09/15/16 Range/Units 05:35 05:35 05:56 WBC 18.1 H (4.0-10.5) K/mm3 RBC 3.36 L (4.7-6.0) M/mm3 Hgb 9.6 L (13.5-18.0) gm/dL Hct 29.8 L (42.0-52.0) % MPV 11.0 H (6.0-9.5) fl Immature Gran % (Auto) 0.60 H (0.001-0.429) % Immature Gran # (Auto) 0.10 H (0.000-0.0310) K/mm3 Neutrophils % 89.2 H (42-75.0) % Lymphocytes % 4.8 L (20-51) % Neutrophils # 16.2 H (1.3-6.0) K/mm3 Lymphocytes # 0.9 L (1.5-3.5) k/mm3 PT 17.8 H (9.4-11.4) Seconds INR (Anticoag Therapy) 1.71 H (0.90-1.10) INR Sodium 128 L (132-142) mmol/L Chloride 93 L (97-106) mmol/L Carbon Dioxide (24-32.6) mmol/L Anion Gap 14.1 H (6.8-13.8) mmol/L BUN 63 H D (6-23) mg/dL Creatinine 3.40 H D (0.4-1.4) mg/dL Est GFR (Non-Af Amer) 19 L D (60-130) mL/min Random Glucose 462 H (70-110) mg/dL Calcium 7.7 L (7.9-10.9) mg/dL 09/15/16 09/15/16 Range/Units 05:56 05:56 WBC 17.0 H (4.0-10.5) K/mm3 RBC 3.16 L (4.7-6.0) M/mm3 Hgb 9.0 L (13.5-18.0) gm/dL Hct 27.7 L (42.0-52.0) % MPV 10.3 H (6.0-9.5) fl Immature Gran % (Auto) 1.00 H (0.001-0.429) % Immature Gran # (Auto) 0.17 H (0.000-0.0310) K/mm3 Neutrophils % 88.8 H (42-75.0) % Lymphocytes % 4.3 L (20-51) % Neutrophils # 15.1 H (1.3-6.0) K/mm3 Lymphocytes # 0.7 L (1.5-3.5) k/mm3 PT (9.4-11.4) Seconds INR (Anticoag Therapy) (0.90-1.10) INR Sodium 129 L (132-142) mmol/L Chloride 94 L (97-106) mmol/L Carbon Dioxide 23.4 L (24-32.6) mmol/L Anion Gap 16.1 H (6.8-13.8) mmol/L BUN 73 H (6-23) mg/dL Creatinine 3.90 H D (0.4-1.4) mg/dL Est GFR (Non-Af Amer) 17 L (60-130) mL/min Random Glucose 361 H (70-110) mg/dL Calcium 7.8 L (7.9-10.9) mg/dL - Exam Constitutional: Present: Alert, Oriented x3, Cooperative ENT Exam: Present: hearing grossly normal Neck: Present: supple Respiratory: Present: normal breath sounds, No rales, No wheezing Cardiovascular/Chest: Present: regular rate, rhythm, no JVD, no murmur Extremity: Present: no pedal edema, no calf tenderness, other - positive diabetic ulcer ,left foot Assessment/Plan - Problems/Diagnosis (1) Bacteremia Problem: Acute Narrative: MSSA on IV Ancef per sensitivity. (2) CKD (chronic kidney disease) Problem: Chronic Qualifiers: Chronic kidney disease stage: stage 3 (moderate) Qualified Code(s): N18.3 - Chronic kidney disease, stage 3 (moderate) Narrative: with ARF - Cr continues to go up. Vanco d/c yesterday. Losartan put on hold. (3) Diabetic foot ulcer Problem: Acute Qualifiers: Diabetic foot ulcer location: unspecified part of foot Diabetes mellitus type: type 1 Laterality: left Non-pressure ulcer stage: unspecified non- pressure ulcer stage Qualified Code(s): E10.621 - Type 1 diabetes mellitus with foot ulcer; L97.529 - Non-pressure chronic ulcer of other part of left foot with unspecified severity (4) Fever Problem: Resolved Qualifiers: Fever type: unspecified Qualified Code(s): R50.9 - Fever, unspecified (5) Leukocytosis Problem: Acute Narrative: trending down again, slow. Day 2nd of IV ancef (6) Peripheral arterial disease Problem: Acute (7) Charcot foot due to diabetes mellitus Problem: Acute (8) Anemia Problem: Acute Qualifiers: Anemia type: unspecified type Qualified Code(s): D64.9 - Anemia, unspecified (9) Diabetes mellitus Problem: Acute Qualifiers: Diabetes mellitus type: type 2 Diabetes mellitus complication status: with kidney complications Diabetes mellitus complication detail: with chronic kidney disease Diabetes mellitus custodial insulin use: with miniature set constructor use Chronic kidney disease stage: stage 3 (moderate) Qualified Code(s): E11.22 - Type 2 diabetes mellitus with diabetic chronic kidney disease; N18.3 - Chronic kidney disease, stage 3 (moderate); 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
[2016-09-15] MEDS ORDERED: VANCOMYCIN HCL LEVEL XX ONE (08:30)
[2016-09-15] MEDS ORDERED: amLODIPine BESYLATE 10 MG TABLET PO SCH (09:00)
[2016-09-15] MEDS: amLODIPine BESYLATE 10 MG TABLET PO SCH (09:55)
[2016-09-15] MEDS: MULTIVITAMIN/IRON/FOLIC ACID 1 TAB TABLET PO SCH (09:55)
[2016-09-15] MEDS: SACCHAROMYCES BOULARDII 250 MG CAPSULE PO SCH ×2 (09:55→20:42)
[2016-09-15] MEDS: POLYETHYLENE GLYCOL 3350 119 GM BTL PO SCH (09:56)
[2016-09-15] MEDS: INSULIN GLARGINE,HUM.REC.ANLOG 100 UNITS/ML VIAL SC SCH ×2 (09:57→20:42)
[2016-09-15] MEDS: CHOLECALCIFEROL 5,000 UNIT TABLET PO SCH (12:07)
--- NOTE | 2016-09-15 16:50 | PN ---
Subjective - Date and Time Seen Date: 09/15/16 Time: 16:50 Subjective Narrative: Pt seen at bedside resting. States that he is feeling somewhat better today, however still weak. Dressing to left foot has been changed by nursing staff. Objective - Review of Systems Generalized/Overall Review: Reports: Weakness Musculoskeletal Complaints: Reports: Other - Intermittent left foot pain Neurological: Reports: Numbness Skin: Reports: Other - Left foot ulcer - Vitals Vitals: Last Vital Signs Temp 37.4 C 09/15/16 14:53 Pulse 88 09/15/16 14:53 Resp 18 09/15/16 14:53 BP 137/67 09/15/16 14:53 Pulse Ox 98 09/15/16 14:53 - Abnormal Lab Findings Abnormal Lab Findings: Abnormal Lab Results 09/15/16 09/15/16 09/15/16 Range/Units 05:56 05:56 05:56 WBC 17.0 H (4.0-10.5) K/mm3 RBC 3.16 L (4.7-6.0) M/mm3 Hgb 9.0 L (13.5-18.0) gm/dL Hct 27.7 L (42.0-52.0) % MPV 10.3 H (6.0-9.5) fl Immature Gran % (Auto) 1.00 H (0.001-0.429) % Immature Gran # (Auto) 0.17 H (0.000-0.0310) K/mm3 Neutrophils % 88.8 H (42-75.0) % Lymphocytes % 4.3 L (20-51) % Neutrophils # 15.1 H (1.3-6.0) K/mm3 Lymphocytes # 0.7 L (1.5-3.5) k/mm3 PT 17.8 H (9.4-11.4) Seconds INR (Anticoag Therapy) 1.71 H (0.90-1.10) INR Sodium 129 L (132-142) mmol/L Chloride 94 L (97-106) mmol/L Carbon Dioxide 23.4 L (24-32.6) mmol/L Anion Gap 16.1 H (6.8-13.8) mmol/L BUN 73 H (6-23) mg/dL Creatinine 3.90 H D (0.4-1.4) mg/dL Est GFR (Non-Af Amer) 17 L (60-130) mL/min Random Glucose 361 H (70-110) mg/dL Calcium 7.8 L (7.9-10.9) mg/dL - Exam Constitutional: Present: Alert, Oriented x3, Cooperative Skin Exam: Present: other - Ulceration to left plantar foot with dressing intact. Neurologic: Present: sensory deficit Appearance: Present: appropriate appearance Eye contact: Present: cooperative Assessment/Plan Plan Narrative: MRI results reviewed with pt. Cannot r/o osteomyelitis at this time, however since not able to do with contrast, cannot say with 100% certainty that he has bone infection. Foot does not exhibit SOI at this time so will continue with local wound care and IV ABX. Advised pt that should his foot begin to show SOI , will likely require surgery to remove infected bone. States understanding. - Problems/Diagnosis (1) Grade II diabetic ulcer left foot Problem: Chronic Narrative: Continue with daily dressing changes. Discussed case with Dr. Carter. Plan to keep patient in-house until WBC normalizes Do not plan for surgical intervention at this time. Ok for d/c home from podiatry standpoint when stable per PCP. Will follow up in wound center following d/c home. Will f/u as in-pt as needed.
[2016-09-15] MEDS: WARFARIN SODIUM 7.5 MG TABLET PO SCH (17:22)
[2016-09-15] MEDS: HYDROcodone/ACETAMINOPHEN 1 EACH TABLET PO PRN (17:29)
[2016-09-16 06:18] LABS: Prothrombin Time (Patient) 23.4 Seconds (9.4-11.4)
[2016-09-16 06:24] LABS: INR 2.25 INR (0.90-1.10)
[2016-09-16] MEDS ORDERED: DEXTROSE 4 GM/TAB BTL ONE (06:32)
[2016-09-16] MEDS: INSULIN LISPRO 100 UNITS/ML VIAL SC SCH ×3 (06:33→17:14)
[2016-09-16] MEDS: MULTIVITAMIN/IRON/FOLIC ACID 1 TAB TABLET PO SCH (08:03)
[2016-09-16] MEDS: POLYETHYLENE GLYCOL 3350 119 GM BTL PO SCH (08:03)
[2016-09-16] MEDS: amLODIPine BESYLATE 10 MG TABLET PO SCH (08:03)
[2016-09-16] MEDS: NORMAL SALINE 1,000 ML IV PRN ×2 (08:03→16:40)
[2016-09-16] MEDS: SACCHAROMYCES BOULARDII 250 MG CAPSULE PO SCH ×2 (08:03→20:18)
[2016-09-16] MEDS: INSULIN GLARGINE,HUM.REC.ANLOG 100 UNITS/ML VIAL SC SCH ×2 (08:13→20:18)
[2016-09-16] MEDS: ALBUTEROL SULFATE/IPRATROPIUM 3 ML NEBU IH PRN ×2 (08:42→19:04)
[2016-09-16 09:16] LABS: Hematocrit 29.1 % (42.0-52.0); Hemoglobin 9.6 gm/dL (13.5-18.0); Mean Cell Volume 86.6 fl (78-100); Mean Corpuscular Hemoglobin 28.6 pg (27-31); Mean Platelet Volume 10.2 fl (6.0-9.5); Neutrophil # 13.2 K/mm3 (1.3-6.0); Neutrophil % 83.5 % (42-75.0); Platelet Count 381 K/mm3 (150-450); Red Blood Count 3.36 M/mm3 (4.7-6.0); Red Cell Distribution Width 14.4 % (11.5-14.0); White Blood Count 15.8 K/mm3 (4.0-10.5)
[2016-09-16 09:21] LABS: Anion Gap 15.4 mmol/L (6.8-13.8); BUN/Creatinine Ratio 25.1 (9.0-21.6); Calcium * 8.1 mg/dL (7.9-10.9); Carbon Dioxide 22.8 mmol/L (24-32.6); Estimated Creat Clear 29.4; Potassium 4.2 mmol/L (3.4-4.6)
[2016-09-16] MEDS: HYDROcodone/ACETAMINOPHEN 1 EACH TABLET PO PRN ×2 (11:31→19:16)
[2016-09-16] MEDS: CHOLECALCIFEROL 5,000 UNIT TABLET PO SCH (11:33)
--- NOTE | 2016-09-16 12:32 | PN ---
Subjective - Date and Time Seen Date: 09/16/16 Time: 12:28 Subjective Narrative: Feeling better. His WBC is down to 15.7. Objective - Review of Systems Generalized/Overall Review: Reports: Weakness. Denies: Chills, Fever EENTM: Reports: No Symptoms Reported Respiratory: Denies: Cough, Shortness of Breath Cardiac: Denies: Chest Pain, Edema, Palpitations Abdominal: Denies: Nausea, Vomiting Genitourinary Symptoms: Denies: Itching, Urgency Musculoskeletal Complaints: Reports: Joint Pain - Vitals Vitals: Last Vital Signs Temp 37.0 C 09/16/16 11:18 Pulse 94 09/16/16 11:18 Resp 18 09/16/16 11:18 BP 122/68 09/16/16 11:18 Pulse Ox 95 09/16/16 11:18 - Abnormal Lab Findings Abnormal Lab Findings: Abnormal Lab Results 09/16/16 09/16/16 09/16/16 Range/Units 05:56 07:04 07:04 WBC 15.8 H (4.0-10.5) K/mm3 RBC 3.36 L (4.7-6.0) M/mm3 Hgb 9.6 L (13.5-18.0) gm/dL Hct 29.1 L (42.0-52.0) % RDW 14.4 H (11.5-14.0) % MPV 10.2 H (6.0-9.5) fl Immature Gran % (Auto) 1.30 H (0.001-0.429) % Immature Gran # (Auto) 0.21 H (0.000-0.0310) K/mm3 Neutrophils % 83.5 H (42-75.0) % Lymphocytes % 6.1 L (20-51) % Neutrophils # 13.2 H (1.3-6.0) K/mm3 Lymphocytes # 1.0 L (1.5-3.5) k/mm3 PT 23.4 H (9.4-11.4) Seconds INR (Anticoag Therapy) 2.25 H (0.90-1.10) INR Carbon Dioxide (24-32.6) mmol/L Anion Gap (6.8-13.8) mmol/L BUN (6-23) mg/dL Creatinine (0.4-1.4) mg/dL Est GFR (Non-Af Amer) (60-130) mL/min BUN/Creatinine Ratio (9.0-21.6) Random Glucose 68 L D (70-110) mg/dL 09/16/16 Range/Units 07:04 WBC (4.0-10.5) K/mm3 RBC (4.7-6.0) M/mm3 Hgb (13.5-18.0) gm/dL Hct (42.0-52.0) % RDW (11.5-14.0) % MPV (6.0-9.5) fl Immature Gran % (Auto) (0.001-0.429) % Immature Gran # (Auto) (0.000-0.0310) K/mm3 Neutrophils % (42-75.0) % Lymphocytes % (20-51) % Neutrophils # (1.3-6.0) K/mm3 Lymphocytes # (1.5-3.5) k/mm3 PT (9.4-11.4) Seconds INR (Anticoag Therapy) (0.90-1.10) INR Carbon Dioxide 22.8 L (24-32.6) mmol/L Anion Gap 15.4 H (6.8-13.8) mmol/L BUN 69 H (6-23) mg/dL Creatinine 2.75 H D (0.4-1.4) mg/dL Est GFR (Non-Af Amer) 25 L D (60-130) mL/min BUN/Creatinine Ratio 25.1 H (9.0-21.6) Random Glucose 68 L (70-110) mg/dL Assessment/Plan - Problems/Diagnosis (1) Bacteremia Problem: Acute Narrative: Staphylococcus Aureus bacteremia on IV Ancef. (2) CKD (chronic kidney disease) Problem: Chronic Qualifiers: Chronic kidney disease stage: stage 3 (moderate) Qualified Code(s): N18.3 - Chronic kidney disease, stage 3 (moderate) (3) Diabetic foot ulcer Problem: Acute Qualifiers: Diabetic foot ulcer location: unspecified part of foot Diabetes mellitus type: type 1 Laterality: left Non-pressure ulcer stage: unspecified non- pressure ulcer stage Qualified Code(s): E10.621 - Type 1 diabetes mellitus with foot ulcer; L97.529 - Non-pressure chronic ulcer of other part of left foot with unspecified severity (4) Fever Problem: Resolved Qualifiers: Fever type: unspecified Qualified Code(s): R50.9 - Fever, unspecified (5) Leukocytosis Problem: Acute (6) Peripheral arterial disease Problem: Acute (7) Charcot foot due to diabetes mellitus Problem: Acute (8) Anemia Problem: Acute Qualifiers: Anemia type: unspecified type Qualified Code(s): D64.9 - Anemia, unspecified (9) Diabetes mellitus Problem: Acute Qualifiers: Diabetes mellitus type: type 2 Diabetes mellitus complication status: with kidney complications Diabetes mellitus complication detail: with chronic kidney disease Diabetes mellitus snf insulin use: with snf use Chronic kidney disease stage: stage 3 (moderate) Qualified Code(s): E11.22 - Type 2 diabetes mellitus with diabetic chronic kidney disease; N18.3 - Chronic kidney disease, stage 3 (moderate); Z79.4 - skilled nursing (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
[2016-09-16] MEDS ORDERED: WARFARIN SODIUM 5 MG TABLET PO SCH (17:00)
[2016-09-17] MEDS: NORMAL SALINE 1,000 ML IV PRN ×3 (00:57→19:21)
[2016-09-17 06:05] LABS: Prothrombin Time (Patient) 28.9 Seconds (9.4-11.4)
[2016-09-17 06:23] LABS: INR 2.78 INR (0.90-1.10)
[2016-09-17] MEDS: INSULIN LISPRO 100 UNITS/ML VIAL SC SCH ×4 (06:58→17:16)
--- NOTE | 2016-09-17 07:50 | PN ---
Subjective - Date and Time Seen Date: 09/17/16 Time: 07:46 Subjective Narrative: Afebrile. BS now on the low side. Objective - Review of Systems Generalized/Overall Review: Reports: Weakness. Denies: Chills, Fever EENTM: Reports: No Symptoms Reported Respiratory: Denies: Cough, Shortness of Breath Cardiac: Denies: Chest Pain, Edema, Palpitations Abdominal: Denies: Nausea, Vomiting, Abdominal Pain Genitourinary Symptoms: Denies: Urgency, Frequency Musculoskeletal Complaints: Reports: Joint Pain - Vitals Vitals: Last Vital Signs Temp 37.0 C 09/17/16 03:00 Pulse 70 09/17/16 03:00 Resp 18 09/17/16 03:00 BP 139/77 09/17/16 03:00 Pulse Ox 90 09/17/16 03:00 - Abnormal Lab Findings Abnormal Lab Findings: Abnormal Lab Results 09/16/16 09/16/16 09/17/16 Range/Units 07:04 07:04 05:37 WBC 15.8 H (4.0-10.5) K/mm3 RBC 3.36 L (4.7-6.0) M/mm3 Hgb 9.6 L (13.5-18.0) gm/dL Hct 29.1 L (42.0-52.0) % RDW 14.4 H (11.5-14.0) % MPV 10.2 H (6.0-9.5) fl Immature Gran % (Auto) 1.30 H (0.001-0.429) % Immature Gran # (Auto) 0.21 H (0.000-0.0310) K/mm3 Neutrophils % 83.5 H (42-75.0) % Lymphocytes % 6.1 L (20-51) % Neutrophils # 13.2 H (1.3-6.0) K/mm3 Lymphocytes # 1.0 L (1.5-3.5) k/mm3 PT 28.9 H (9.4-11.4) Seconds INR (Anticoag Therapy) 2.78 H (0.90-1.10) INR Carbon Dioxide 22.8 L (24-32.6) mmol/L Anion Gap 15.4 H (6.8-13.8) mmol/L BUN 69 H (6-23) mg/dL Creatinine 2.75 H D (0.4-1.4) mg/dL Est GFR (Non-Af Amer) 25 L D (60-130) mL/min BUN/Creatinine Ratio 25.1 H (9.0-21.6) Random Glucose 68 L (70-110) mg/dL 09/17/16 Range/Units 07:00 WBC (4.0-10.5) K/mm3 RBC (4.7-6.0) M/mm3 Hgb (13.5-18.0) gm/dL Hct (42.0-52.0) % RDW (11.5-14.0) % MPV (6.0-9.5) fl Immature Gran % (Auto) (0.001-0.429) % Immature Gran # (Auto) (0.000-0.0310) K/mm3 Neutrophils % (42-75.0) % Lymphocytes % (20-51) % Neutrophils # (1.3-6.0) K/mm3 Lymphocytes # (1.5-3.5) k/mm3 PT (9.4-11.4) Seconds INR (Anticoag Therapy) (0.90-1.10) INR Carbon Dioxide (24-32.6) mmol/L Anion Gap (6.8-13.8) mmol/L BUN (6-23) mg/dL Creatinine (0.4-1.4) mg/dL Est GFR (Non-Af Amer) (60-130) mL/min BUN/Creatinine Ratio (9.0-21.6) Random Glucose 57 L (70-110) mg/dL - Exam Constitutional: Present: Alert, Oriented x3, Cooperative ENT Exam: Present: hearing grossly normal Neck: Present: supple Breasts: Present: Exam deferred Respiratory: Present: decreased breath sounds, No rales, No wheezing Cardiovascular/Chest: Present: regular rate, rhythm, no JVD, no murmur Abdomen: Present: Normal bowel sounds, soft, nontender, nondistended Extremity: Present: no calf tenderness, other - positive diabetic ulcer , left foot Assessment/Plan - Problems/Diagnosis (1) Bacteremia Problem: Acute Narrative: Staph Bacteremia on IV Ancef. will continue minimum of 7-10 days or until WBC normalizes before switching to oral. (2) CKD (chronic kidney disease) Problem: Chronic Qualifiers: Chronic kidney disease stage: stage 3 (moderate) Qualified Code(s): N18.3 - Chronic kidney disease, stage 3 (moderate) Narrative: Cr was improving. will recheck BMP in the morning (3) Diabetic foot ulcer Problem: Acute Qualifiers: Diabetic foot ulcer location: unspecified part of foot Diabetes mellitus type: type 1 Laterality: left Non-pressure ulcer stage: unspecified non- pressure ulcer stage Qualified Code(s): E10.621 - Type 1 diabetes mellitus with foot ulcer; L97.529 - Non-pressure chronic ulcer of other part of left foot with unspecified severity (4) Fever Problem: Resolved Qualifiers: Fever type: unspecified Qualified Code(s): R50.9 - Fever, unspecified (5) Leukocytosis Problem: Acute Narrative: was improving. will recheck CBC in the morning. (6) Peripheral arterial disease Problem: Acute (7) Charcot foot due to diabetes mellitus Problem: Acute (8) Anemia Problem: Acute Qualifiers: Anemia type: unspecified type Qualified Code(s): D64.9 - Anemia, unspecified (9) Diabetes mellitus Problem: Acute Qualifiers: Diabetes mellitus type: type 2 Diabetes mellitus complication status: with kidney complications Diabetes mellitus complication detail: with chronic kidney disease Diabetes mellitus python consultant insulin use: with half-way use Chronic kidney disease stage: stage 3 (moderate) Qualified Code(s): E11.22 - Type 2 diabetes mellitus with diabetic chronic kidney disease; N18.3 - Chronic kidney disease, stage 3 (moderate); Z79.4 - 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
[2016-09-17] MEDS: POLYETHYLENE GLYCOL 3350 119 GM BTL PO SCH (09:22)
[2016-09-17] MEDS: amLODIPine BESYLATE 10 MG TABLET PO SCH (09:28)
[2016-09-17] MEDS: MULTIVITAMIN/IRON/FOLIC ACID 1 TAB TABLET PO SCH (09:28)
[2016-09-17] MEDS: SACCHAROMYCES BOULARDII 250 MG CAPSULE PO SCH ×2 (09:28→20:08)
[2016-09-17] MEDS: HYDROcodone/ACETAMINOPHEN 1 EACH TABLET PO PRN ×2 (09:36→17:15)
[2016-09-17] MEDS: ALBUTEROL SULFATE/IPRATROPIUM 3 ML NEBU IH PRN ×2 (10:35→19:14)
[2016-09-17] MEDS: CHOLECALCIFEROL 5,000 UNIT TABLET PO SCH (12:06)
[2016-09-17] MEDS ORDERED: WARFARIN SODIUM 7.5 MG TABLET PO SCH (17:00)
[2016-09-17] MEDS ORDERED: INSULIN GLARGINE,HUM.REC.ANLOG 100 UNITS/ML VIAL SC SCH (21:00)
[2016-09-18] MEDS: NORMAL SALINE 1,000 ML IV PRN (03:47)
[2016-09-18] MEDS: ALBUTEROL SULFATE/IPRATROPIUM 3 ML NEBU IH PRN (04:56)
[2016-09-18 05:58] LABS: Hematocrit 27.1 % (42.0-52.0); Hemoglobin 8.6 gm/dL (13.5-18.0); Mean Cell Volume 88.6 fl (78-100); Mean Corpuscular Hemoglobin 28.1 pg (27-31); Mean Corpuscular Hgb Conc 31.7 g/dl (32-36); Mean Platelet Volume 9.6 fl (6.0-9.5); Neutrophil # 10.9 K/mm3 (1.3-6.0); Neutrophil % 78.5 % (42-75.0); Platelet Count 513 K/mm3 (150-450); Red Blood Count 3.06 M/mm3 (4.7-6.0); Red Cell Distribution Width 14.6 % (11.5-14.0); White Blood Count 13.9 K/mm3 (4.0-10.5)
[2016-09-18 06:06] LABS: Anion Gap 15.4 mmol/L (6.8-13.8); BUN/Creatinine Ratio 29.1 (9.0-21.6); CRP 10.2 mg/dL (0.0-0.9); Carbon Dioxide 22.3 mmol/L (24-32.6); Estimated Creat Clear 44.4; Potassium 5.7 mmol/L (3.4-4.6)
[2016-09-18 06:07] LABS: Prothrombin Time (Patient) 30.8 Seconds (9.4-11.4)
[2016-09-18 06:14] LABS: INR 2.96 INR (0.90-1.10)
[2016-09-18] MEDS: INSULIN LISPRO 100 UNITS/ML VIAL SC SCH (07:34)
[2016-09-18 07:51] VITALS: BP 177/84
--- NOTE | 2016-09-18 07:55 | PN ---
Subjective - Date and Time Seen Date: 09/18/16 Time: 07:43 Subjective Narrative: Afebrile. BS are very labile. Objective - Review of Systems Generalized/Overall Review: Reports: Weakness. Denies: Chills, Fever EENTM: Reports: No Symptoms Reported Respiratory: Denies: Cough, Shortness of Breath, Orthopnea Cardiac: Denies: Chest Pain, Edema, Palpitations Abdominal: Denies: Nausea, Vomiting Genitourinary Symptoms: Denies: Urgency, Frequency Musculoskeletal Complaints: Reports: Joint Pain Skin: Reports: Other - diabetic/pressure ulcer, left foot - Vitals Vitals: Last Vital Signs Temp 36.8 C 09/18/16 05:00 Pulse 90 09/18/16 05:00 Resp 18 09/18/16 05:00 BP 151/80 09/18/16 05:00 Pulse Ox 92 09/18/16 05:00 - Abnormal Lab Findings Abnormal Lab Findings: Abnormal Lab Results 09/18/16 09/18/16 09/18/16 Range/Units 05:25 05:25 05:25 WBC 13.9 H (4.0-10.5) K/mm3 RBC 3.06 L (4.7-6.0) M/mm3 Hgb 8.6 L (13.5-18.0) gm/dL Hct 27.1 L (42.0-52.0) % MCHC 31.7 L (32-36) g/dl RDW 14.6 H (11.5-14.0) % Plt Count 513 H (150-450) K/mm3 MPV 9.6 H (6.0-9.5) fl Immature Gran % (Auto) 3.70 H (0.001-0.429) % Immature Gran # (Auto) 0.52 H (0.000-0.0310) K/mm3 Neutrophils % 78.5 H (42-75.0) % Lymphocytes % 6.3 L (20-51) % Eosinophils % 3.8 H (0.0-3.0) % Neutrophils # 10.9 H (1.3-6.0) K/mm3 Lymphocytes # 0.9 L (1.5-3.5) k/mm3 ESR 117 H (0-10) mm/hr PT 30.8 H (9.4-11.4) Seconds INR (Anticoag Therapy) 2.96 H (0.90-1.10) INR Potassium (3.4-4.6) mmol/L Carbon Dioxide (24-32.6) mmol/L Anion Gap (6.8-13.8) mmol/L BUN (6-23) mg/dL Creatinine (0.4-1.4) mg/dL Est GFR (Non-Af Amer) (60-130) mL/min BUN/Creatinine Ratio (9.0-21.6) Random Glucose (70-110) mg/dL C-Reactive Prot, Quant (0.0-0.9) mg/dL 09/18/16 Range/Units 05:25 WBC (4.0-10.5) K/mm3 RBC (4.7-6.0) M/mm3 Hgb (13.5-18.0) gm/dL Hct (42.0-52.0) % MCHC (32-36) g/dl RDW (11.5-14.0) % Plt Count (150-450) K/mm3 MPV (6.0-9.5) fl Immature Gran % (Auto) (0.001-0.429) % Immature Gran # (Auto) (0.000-0.0310) K/mm3 Neutrophils % (42-75.0) % Lymphocytes % (20-51) % Eosinophils % (0.0-3.0) % Neutrophils # (1.3-6.0) K/mm3 Lymphocytes # (1.5-3.5) k/mm3 ESR (0-10) mm/hr PT (9.4-11.4) Seconds INR (Anticoag Therapy) (0.90-1.10) INR Potassium 5.7 H D (3.4-4.6) mmol/L Carbon Dioxide 22.3 L (24-32.6) mmol/L Anion Gap 15.4 H (6.8-13.8) mmol/L BUN 53 H (6-23) mg/dL Creatinine 1.82 H D (0.4-1.4) mg/dL Est GFR (Non-Af Amer) 40 L D (60-130) mL/min BUN/Creatinine Ratio 29.1 H (9.0-21.6) Random Glucose 317 H D (70-110) mg/dL C-Reactive Prot, Quant 10.2 H (0.0-0.9) mg/dL - Exam Constitutional: Present: Alert, Oriented x3, Cooperative ENT Exam: Present: hearing grossly normal Neck: Present: supple Respiratory: Present: normal breath sounds, No rales, No wheezing Cardiovascular/Chest: Present: regular rate, rhythm, no JVD, no murmur Abdomen: Present: Normal bowel sounds, nontender, nondistended Extremity: Present: no calf tenderness, other - positive charcot foot, left Assessment/Plan - Problems/Diagnosis (1) Bacteremia Problem: Acute Narrative: Staphylococcus Aureus Bacteremia. will repeat BC. will get Echo. continue IV antibiotics . (2) CKD (chronic kidney disease) Problem: Chronic Qualifiers: Chronic kidney disease stage: stage 3 (moderate) Qualified Code(s): N18.3 - Chronic kidney disease, stage 3 (moderate) Narrative: Cr continues to improve (3) Diabetic foot ulcer Problem: Acute Qualifiers: Diabetic foot ulcer location: unspecified part of foot Diabetes mellitus type: type 1 Laterality: left Non-pressure ulcer stage: unspecified non- pressure ulcer stage Qualified Code(s): E10.621 - Type 1 diabetes mellitus with foot ulcer; L97.529 - Non-pressure chronic ulcer of other part of left foot with unspecified severity Narrative: Podiatry is following up. Ulcer is better. (4) Fever Problem: Resolved Qualifiers: Fever type: unspecified Qualified Code(s): R50.9 - Fever, unspecified (5) Leukocytosis Problem: Acute (6) Peripheral arterial disease Problem: Acute (7) Charcot foot due to diabetes mellitus Problem: Acute (8) Anemia Problem: Acute Qualifiers: Anemia type: unspecified type Qualified Code(s): D64.9 - Anemia, unspecified (9) Diabetes mellitus Problem: Acute Qualifiers: Diabetes mellitus type: type 2 Diabetes mellitus complication status: with kidney complications Diabetes mellitus complication detail: with chronic kidney disease Diabetes mellitus terminal supervisor insulin use: with terminal supervisor use Chronic kidney disease stage: stage 3 (moderate) Qualified Code(s): E11.22 - Type 2 diabetes mellitus with diabetic chronic kidney disease; N18.3 - Chronic kidney disease, stage 3 (moderate); Z79.4 - [facility] (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 Narrative: labile. will adjust insulin.
[2016-09-18] MEDS: POLYETHYLENE GLYCOL 3350 119 GM BTL PO SCH (08:46)
[2016-09-18] MEDS: amLODIPine BESYLATE 10 MG TABLET PO SCH (08:46)
[2016-09-18] MEDS: SACCHAROMYCES BOULARDII 250 MG CAPSULE PO SCH (08:46)
[2016-09-18] MEDS: MULTIVITAMIN/IRON/FOLIC ACID 1 TAB TABLET PO SCH (08:46)
[2016-09-18] MEDS: HYDROcodone/ACETAMINOPHEN 1 EACH TABLET PO PRN (08:46)
--- NOTE | 2016-09-21 09:06 | ECHO ---
This report is available in the EMR
== END 2016-09-18 11:21 | disposition swing bed (61) | DRG 623 ==
LOC: ER 08:21 → MS 11:41 → OBSVTOIN 13:20
PROVIDERS: ADMIT Internal Medicine; ATTEND Internal Medicine
PROC: 0JBR0ZZ Excision of Left Foot Subcutaneous Tissue and Fascia, Open Approach (ICD-10-PCS; principal; 2016-09-14)
PROC: B246ZZZ Ultrasonography of Right and Left Heart (ICD-10-PCS; 2016-09-18)
DX: E11.621 Type 2 diabetes mellitus with foot ulcer (principal); L97.422 Non-pressure chronic ulcer of left heel and midfoot with fat layer exposed; I12.9 Hypertensive chronic kidney disease with stage 1 through stage 4 chronic kidney disease, or unspecified chronic kidney disease; E11.610 Type 2 diabetes mellitus with diabetic neuropathic arthropathy; N18.3 Chronic kidney disease, stage 3 (moderate); E11.22 Type 2 diabetes mellitus with diabetic chronic kidney disease; E11.40 Type 2 diabetes mellitus with diabetic neuropathy, unspecified; D64.9 Anemia, unspecified; A49.01 Methicillin susceptible Staphylococcus aureus infection, unspecified site; D72.829 Elevated white blood cell count, unspecified; S22.42XD Multiple fractures of ribs, left side, subsequent encounter for fracture with routine healing; R50.9 Fever, unspecified; S42.102D Fracture of unspecified part of scapula, left shoulder, subsequent encounter for fracture with routine healing; W19.XXXD Unspecified fall, subsequent encounter; Z91.81 History of falling; I48.2 Chronic atrial fibrillation; Z79.4 Long term (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; Z79.01 Long term (current) use of anticoagulants
CPT/HCPCS: 11042; 36415; 70450; 71250; 72072; 73030; 73630; 73718; 74020; 74176; 76775; 80048; 80053; 81001; 82272; 82607; 82947; 83036; 83540; 83550; 83605; 83690; 84132; 84484; 85007; 85025; 85610; 85652; 85730; 86140; 87040; 87077; 87081; 87186; 93005; 93306; 94640; 96365; 97110; 97116; 97161; 97530; 99283; G8978; G8979; G8980; J2405

== ENCOUNTER 2016-09-18 11:28 | Inpatient (IN) | payer BC, MEDICARE ==
[2016-09-18] MEDS ORDERED: HYDROcodone/ACETAMINOPHEN 1 EACH TABLET PO PRN (12:19)
[2016-09-18] MEDS ORDERED: ACETAMINOPHEN 325 MG TABLET PO PRN (12:19)
[2016-09-18] MEDS ORDERED: ceFAZolin SODIUM 1 GM/10 ML ML IV SCH (12:30)
[2016-09-18] MEDS: INSULIN LISPRO 100 UNITS/ML VIAL SC SCH ×2 (13:28→17:17)
[2016-09-18] MEDS: CHOLECALCIFEROL 5,000 UNIT TABLET PO SCH (13:31)
[2016-09-18] MEDS: ALBUTEROL SULFATE/IPRATROPIUM 3 ML NEBU IH PRN (14:24)
--- NOTE | 2016-09-18 15:22 | HP ---
Chief Complaint - Chief Complaint Date of Service: 09/18/16 Time of Service: 15:22 Chief Complaint: SNF for IV antibiotics History of Present Illness: Ke Roa, is a 65-year-old white male, with previous medical history of Charcot foot due to diabetes mellitus and diabetic neuropathy, chronic renal failure stage III , peripheral arterial disease , hypertension, umbilical hernia, small without obstruction, who was admitted on 09/11/2016 because of fever. 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 He was recently in the emergency room on 09/02/16 for a fall/dizziness and was sent home for fractured left ribs on xray. He denied any coughing, denied any nausea or vomiting diarrhea or constipation. He said that his last bowel movement was 2 days ago but this is normal for him as he usually has a bowel habit of every 2-3 days. Because his fever persisted he was brought to the emergency room where he was found to have a temperature of 38.7 Tmax. His white blood cell count was elevated at 19.7 with left shift. His CT scan of his head showed no acute intracranial process but correlate for probable normal pressure hydrocephalus. His CT scan of his chest showed no acute cardiopulmonary findings noted except for trace pleural effusion and pericardial effusion. It showed no rib fractures. His CT scan of his abdomen shows abnormal gas bowel pattern, partial small bowel obstruction cannot be excluded, small umbilical hernia. . He does have an open ulcer of his left foot which is being followed up by our technical maintenance technician here. On his last visit he was told that this also was getting smaller and improving. He was started on IV Zosyn to cover for bith GI and musculoskeletal sources of his fever. Surgery was consulted and cleared him for PSBO. His BC came back positive for staphylococcus aureus bacteremia. He was changed to IV ancef per sensitivity. His WBC is trending down and he has been afebrile . This is his day 8 of IV antibiotics but uncomplicated Staph bacteremia requires ate least 2 weeks of IV antibiotics. Will transfer him to SNF for this. Will also repeat a BC and do an Echo. Continue with his PT. - Patient's Past Medical History Patient History - Medical: Diabetes Type 1 Patient History - Cardiac/Respiratory: Atrial Fibrillation, Hypertension, Pneumonia, Other Patient History - Cancer: No Hx of Cancer Patient History - Surgical Procedures: Total Hip Replacement Patient History - Other: None - Family History Mother Family History - Medical: , History Unknown Father Family History - Medical: - Social History Living Situations: spouse Abuse History: No History of abuse Psych History: No pertinent hx Does anyone smoke in the home?: No Smoking Status: Never smoker Have you smoked in the past 12 months: No Do you dip or chew tobacco: No Alcohol Use: none Drug Use: none - Immunizations Immunizations Up to Date: Yes Hx Pneumococcal Vaccination: No History of Influenza Vaccine: Yes Immunizations: IMMUNIZATION HX Immunizations Up to Date Yes History of Influenza Vaccine Yes Hx Pneumococcal Vaccination No Allergies/Adverse Reactions: Allergies Allergy/AdvReac Type Severity Reaction Status Date / Time No Known Allergies Allergy Verified 09/18/16 12:12 Home Medications: HOME MEDICATIONS Albuterol Sulfate [Proair Hfa] 1 - 2 puff IH Q4H PRN #1 inhaler 02/07/16 [Last Taken 09/01/16] Albuterol Sulfate/Ipratropium [Duoneb 2.5-0.5MG/3ML Soln] 3 ml IH TID PRN [Last Taken 09/01/16] Acetaminophen [Tylenol] 650 mg PO Q4H PRN #30 tablet 09/18/16 [Last Taken Unknown] Cholecalciferol [Vitamin D] 5,000 unit PO DAILY@1200 #30 tablet 09/18/16 [Last Taken Unknown] HYDROcodone/ACETAMINOPHEN [[place] 5-325] 1 each PO Q6H PRN #30 tablet 09/18/16 [ Last Taken Unknown] Insulin Glargine,Hum.rec.anlog [Lantus] 15 units SC HS #1 vial 09/18/16 [Last Taken Unknown] Insulin Lispro [Humalog] 0 units SC AC #7 vial 09/18/16 [Last Taken Unknown] Multivitamin/Iron/Folic Acid [Certagen] 1 tab PO DAILY #7 tablet 09/18/16 [Last Taken Unknown] Polyethylene Glycol 3350 [Miralax] 17 gm PO DAILY 1 Days 09/18/16 [Last Taken Unknown] Saccharomyces Boulardii [Florastor] 250 mg PO BID #1 capsule 09/18/16 [Last Taken Unknown] Warfarin Sodium [Coumadin] 5 mg PO MoWeFr@1700 #1 tablet 09/18/16 [Last Taken Unknown] Warfarin Sodium [Coumadin] 7.5 mg PO SuTuThSa@1700 #1 tablet 09/18/16 [Last Taken Unknown] amLODIPine BESYLATE [Norvasc] 10 mg PO DAILY #1 tablet 09/18/16 [Last Taken Unknown] ceFAZolin SODIUM [Ancef] 1 gm IV Q8H #1 ml 09/18/16 [Last Taken Unknown] Exam - Exam Vital Signs: Vital Signs - Last Taken Temp 37.1 C 09/18/16 12:49 Pulse 84 09/18/16 14:34 Resp 20 09/18/16 14:34 BP 138/62 09/18/16 12:49 Pulse Ox 93 09/18/16 14:24 Constitutional: Present: Alert, Oriented x3, Cooperative, Thin and frail ENT Exam: Present: hearing grossly normal Eye Exam: bilateral eye: normal inspection, PERRL, EOMI Neck: Present: supple Back Exam: Present: no CVA tenderness Breasts: Present: Exam deferred Respiratory: Present: decreased breath sounds, No rales, No wheezing Cardiovascular/Chest: Present: regular rate, rhythm, no JVD, systolic murmur Abdomen: Present: Normal bowel sounds, soft, nontender, nondistended Extremity: Present: no calf tenderness, pedal edema, other - positive ulcer, positive Charcot foot. Assessment/Plan - Assessment/Plan (1) Bacteremia Assessment: MSSA bacteremia- likely source is infectious myositis of his Charcot foot. Echo shows no vegetations. Continue IV antibiotic for at least total of 14 days. will repeat BC. Problem: Acute (2) Charcot foot due to diabetes mellitus Problem: Acute (3) Diabetes mellitus Assessment: labile. 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 (4) Diabetic foot ulcer Assessment: podiatry is following up patient Problem: Acute Qualifiers: Diabetic foot ulcer location: unspecified part of foot Diabetes mellitus type: type 1 Laterality: left Non-pressure ulcer stage: unspecified non- pressure ulcer stage Qualified Code(s): E10.621 - Type 1 diabetes mellitus with foot ulcer; L97.529 - Non-pressure chronic ulcer of other part of left foot with unspecified severity (5) Leukocytosis Assessment: improving Problem: Acute (6) PAF (paroxysmal atrial fibrillation) Problem: Acute (7) Ribs, multiple fractures Assessment: healing Problem: Acute Qualifiers: Encounter type: initial encounter Fracture type: closed Laterality: left Qualified Code(s): S22.42XA - Multiple fractures of ribs, left side, initial encounter for closed fracture (8) CKD (chronic kidney disease) Assessment: Cr has improved and is back to baseline. ARF has resolve. Problem: Chronic Qualifiers: Chronic kidney disease stage: stage 3 (moderate) Qualified Code(s): N18.3 - Chronic kidney disease, stage 3 (moderate)
[2016-09-18] MEDS ORDERED: WARFARIN SODIUM 5 MG TABLET PO SCH (17:00)
[2016-09-18] MEDS ORDERED: INSULIN LISPRO 100 UNITS/ML VIAL SC SCH (17:00)
[2016-09-18] MEDS: SACCHAROMYCES BOULARDII 250 MG CAPSULE PO SCH (20:30)
[2016-09-18] MEDS: INSULIN GLARGINE,HUM.REC.ANLOG 100 UNITS/ML VIAL SC SCH (20:31)
[2016-09-18] MEDS: NYSTATIN 15 APPL BTL TP SCH (20:40)
[2016-09-19] MEDS: ALBUTEROL SULFATE/IPRATROPIUM 3 ML NEBU IH PRN ×2 (01:25→17:10)
[2016-09-19] MEDS: INSULIN LISPRO 100 UNITS/ML VIAL SC SCH ×3 (07:33→17:32)
[2016-09-19] MEDS: ALBUTEROL SULFATE 2.5 MG/3 ML VIAL.NEB IH PRN (09:10)
[2016-09-19 10:15] LABS: Prothrombin Time (Patient) 30.3 Seconds (9.4-11.4)
[2016-09-19 10:20] LABS: INR 2.91 INR (0.90-1.10)
[2016-09-19] MEDS: MULTIVITAMIN/IRON/FOLIC ACID 1 TAB TABLET PO SCH (10:32)
[2016-09-19] MEDS: amLODIPine BESYLATE 10 MG TABLET PO SCH (10:32)
[2016-09-19] MEDS: NYSTATIN 15 APPL BTL TP SCH ×2 (10:32→21:04)
[2016-09-19] MEDS: SACCHAROMYCES BOULARDII 250 MG CAPSULE PO SCH ×2 (10:32→21:04)
[2016-09-19] MEDS: POLYETHYLENE GLYCOL 3350 119 GM BTL PO SCH (10:33)
[2016-09-19] MEDS ORDERED: CHOLECALCIFEROL 5,000 UNIT TABLET PO SCH (12:00)
[2016-09-19] MEDS: CHOLECALCIFEROL 5,000 UNIT TABLET PO SCH (12:03)
[2016-09-19] MEDS ORDERED: WARFARIN SODIUM 7.5 MG TABLET PO SCH (17:00)
[2016-09-19] MEDS: INSULIN GLARGINE,HUM.REC.ANLOG 100 UNITS/ML VIAL SC SCH (21:10)
[2016-09-20] MEDS: ALBUTEROL SULFATE/IPRATROPIUM 3 ML NEBU IH PRN (02:05)
[2016-09-20 06:08] LABS: Hematocrit 27.5 % (42.0-52.0); Hemoglobin 8.7 gm/dL (13.5-18.0); Mean Cell Volume 89.6 fl (78-100); Mean Corpuscular Hemoglobin 28.3 pg (27-31); Mean Corpuscular Hgb Conc 31.6 g/dl (32-36); Mean Platelet Volume 8.7 fl (6.0-9.5); Platelet Count 550 K/mm3 (150-450); Red Blood Count 3.07 M/mm3 (4.7-6.0); Red Cell Distribution Width 14.8 % (11.5-14.0); White Blood Count 13.8 K/mm3 (4.0-10.5)
[2016-09-20 06:16] LABS: Anion Gap 12.9 mmol/L (6.8-13.8); BUN/Creatinine Ratio 26.1 (9.0-21.6); Calcium * 8.2 mg/dL (7.9-10.9); Carbon Dioxide 26.5 mmol/L (24-32.6); Estimated Creat Clear -54.5; Potassium 5.4 mmol/L (3.4-4.6); Prothrombin Time (Patient) 37.2 Seconds (9.4-11.4)
[2016-09-20 06:22] LABS: INR 3.58 INR (0.90-1.10)
[2016-09-20 06:27] LABS: Total Cells Counted 100
[2016-09-20 06:35] LABS: Anisocytosis 1+; Band 2 % (0-2.0); Eosinophil 3 % (0-3); Hypochromia 1+; Immature Granulocyte 2 (0-1); Lymphocyte 10 % (20-51); Microcytosis 1+; Monocyte 5 % (0-9); Neutrophil 78 % (42-75); Neutrophil # 10.8 K/mm3 (1.3-6.0); Platelet Estimate Increased (NORMAL)
[2016-09-20] MEDS: INSULIN LISPRO 100 UNITS/ML VIAL SC SCH ×3 (06:52→16:54)
--- NOTE | 2016-09-20 08:19 | PN ---
Subjective - Date and Time Seen Date: 09/20/16 Time: 08:17 Subjective Narrative: Patient is status quo. Tmax 37.7 on 09/19/16. WBC down only to 13.8. Day # 10 of IV antibiotics. Objective - Review of Systems Generalized/Overall Review: Denies: Weakness, Chills, Fever EENTM: Reports: No Symptoms Reported Respiratory: Denies: Cough, Shortness of Breath, Orthopnea Cardiac: Denies: Chest Pain, Edema, Palpitations Abdominal: Denies: Nausea, Vomiting Genitourinary Symptoms: Denies: Frequency, Hesitancy Musculoskeletal Complaints: Reports: Joint Pain Skin: Reports: Rash - Vitals Vitals: Last Vital Signs Temp 36.8 C 09/20/16 06:28 Pulse 78 09/20/16 06:28 Resp 18 09/20/16 06:28 BP 142/67 09/20/16 06:28 Pulse Ox 95 09/20/16 06:28 - Abnormal Lab Findings Abnormal Lab Findings: Abnormal Lab Results 09/19/16 09/20/16 09/20/16 Range/Units 09:55 05:55 05:55 WBC 13.8 H (4.0-10.5) K/mm3 RBC 3.07 L (4.7-6.0) M/mm3 Hgb 8.7 L (13.5-18.0) gm/dL Hct 27.5 L (42.0-52.0) % MCHC 31.6 L (32-36) g/dl RDW 14.8 H (11.5-14.0) % Plt Count 550 H (150-450) K/mm3 Neutrophils % (Manual) 78 H (42-75) % Lymphocytes % (Manual) 10 L (20-51) % Immature Granulocytes 2 H (0-1) Neutrophils # (Manual) 10.8 H (1.3-6.0) K/mm3 Lymphocytes # (Manual) 1.4 L (1.5-3.5) k/mm3 Platelet Estimate Increased H (NORMAL) PT 30.3 H (9.4-11.4) Seconds INR (Anticoag Therapy) 2.91 H (0.90-1.10) INR Plasma Sodium 144 H (130-142) mmol/L Potassium 5.4 H (3.4-4.6) mmol/L Chloride 107 H (97-106) mmol/L BUN 43 H (6-23) mg/dL Creatinine 1.65 H (0.4-1.4) mg/dL Est GFR (Non-Af Amer) 45 L (60-130) mL/min BUN/Creatinine Ratio 26.1 H (9.0-21.6) Random Glucose 277 H (70-110) mg/dL 09/20/16 Range/Units 05:55 WBC (4.0-10.5) K/mm3 RBC (4.7-6.0) M/mm3 Hgb (13.5-18.0) gm/dL Hct (42.0-52.0) % MCHC (32-36) g/dl RDW (11.5-14.0) % Plt Count (150-450) K/mm3 Neutrophils % (Manual) (42-75) % Lymphocytes % (Manual) (20-51) % Immature Granulocytes (0-1) Neutrophils # (Manual) (1.3-6.0) K/mm3 Lymphocytes # (Manual) (1.5-3.5) k/mm3 Platelet Estimate (NORMAL) PT 37.2 H (9.4-11.4) Seconds INR (Anticoag Therapy) 3.58 H (0.90-1.10) INR Plasma Sodium (130-142) mmol/L Potassium (3.4-4.6) mmol/L Chloride (97-106) mmol/L BUN (6-23) mg/dL Creatinine (0.4-1.4) mg/dL Est GFR (Non-Af Amer) (60-130) mL/min BUN/Creatinine Ratio (9.0-21.6) Random Glucose (70-110) mg/dL - Exam Constitutional: Present: Alert, Oriented x3, Cooperative, Thin and frail ENT Exam: Present: hearing grossly normal Neck: Present: supple Breasts: Present: Exam deferred Respiratory: Present: normal breath sounds, No rales, No wheezing Cardiovascular/Chest: Present: regular rate, rhythm, no JVD, systolic murmur Abdomen: Present: Normal bowel sounds, soft, nontender, nondistended Extremity: Present: no pedal edema, no calf tenderness Skin Exam: Present: other - no signs of endocarditis Assessment/Plan - Problems/Diagnosis (1) Bacteremia Problem: Acute Narrative: day # 10 of IV Antibiotics ( zosyn x 3 days then Cefazolin per sensitivity). Will need a minimum of 14 days of IV antibiotics. TTE shows no vegetations but of course DEIDRE is more ideal.likely source is infectious myositis. repeat BC preliminary NG .Will then transition to oral antibiotics. (2) Charcot foot due to diabetes mellitus Problem: Acute Narrative: no OM per Podiatry. 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 Lantus increased to 20 untis. (4) Diabetic foot ulcer Problem: Acute Qualifiers: Diabetic foot ulcer location: unspecified part of foot Diabetes mellitus type: type 1 Laterality: left Non-pressure ulcer stage: unspecified non- pressure ulcer stage Qualified Code(s): E10.621 - Type 1 diabetes mellitus with foot ulcer; L97.529 - Non-pressure chronic ulcer of other part of left foot with unspecified severity (5) Leukocytosis Problem: Acute (6) PAF (paroxysmal atrial fibrillation) Problem: Acute (7) Ribs, multiple fractures Problem: Acute Qualifiers: Encounter type: initial encounter Fracture type: closed Laterality: left Qualified Code(s): S22.42XA - Multiple fractures of ribs, left side, initial encounter for closed fracture (8) CKD (chronic kidney disease) Problem: Chronic Qualifiers: Chronic kidney disease stage: stage 3 (moderate) Qualified Code(s): N18.3 - Chronic kidney disease, stage 3 (moderate) Narrative: Cr down to 1.63 after vanco induced ARF. (9) Rash Problem: Acute Narrative: on Mycostatin
[2016-09-20] MEDS: NYSTATIN 15 APPL BTL TP SCH (09:01)
[2016-09-20] MEDS: MULTIVITAMIN/IRON/FOLIC ACID 1 TAB TABLET PO SCH (09:01)
[2016-09-20] MEDS: POLYETHYLENE GLYCOL 3350 119 GM BTL PO SCH (09:01)
[2016-09-20] MEDS: SACCHAROMYCES BOULARDII 250 MG CAPSULE PO SCH ×2 (09:01→20:41)
[2016-09-20] MEDS: amLODIPine BESYLATE 10 MG TABLET PO SCH (09:02)
[2016-09-20] MEDS: CHOLECALCIFEROL 5,000 UNIT TABLET PO SCH (11:41)
[2016-09-20] MEDS: ALBUTEROL SULFATE 2.5 MG/3 ML VIAL.NEB IH PRN (13:08)
[2016-09-20] MEDS ORDERED: WARFARIN SODIUM 7.5 MG TABLET PO SCH (17:00)
[2016-09-20] MEDS: NYSTATIN 30 APPL TUBE TP SCH (17:01)
[2016-09-20] MEDS: INSULIN GLARGINE,HUM.REC.ANLOG 100 UNITS/ML VIAL SC SCH (20:41)
[2016-09-21] MEDS: ALBUTEROL SULFATE/IPRATROPIUM 3 ML NEBU IH PRN ×2 (01:40→13:24)
[2016-09-21 06:02] LABS: Prothrombin Time (Patient) 33.4 Seconds (9.4-11.4)
[2016-09-21 06:07] LABS: INR 3.21 INR (0.90-1.10)
[2016-09-21] MEDS: INSULIN LISPRO 100 UNITS/ML VIAL SC SCH ×3 (07:29→16:20)
[2016-09-21] MEDS: POLYETHYLENE GLYCOL 3350 119 GM BTL PO SCH (09:02)
[2016-09-21] MEDS: SACCHAROMYCES BOULARDII 250 MG CAPSULE PO SCH ×2 (09:02→20:19)
[2016-09-21] MEDS: amLODIPine BESYLATE 10 MG TABLET PO SCH (09:02)
[2016-09-21] MEDS: NYSTATIN 30 APPL TUBE TP SCH ×3 (09:04→16:14)
[2016-09-21] MEDS: MULTIVITAMIN/IRON/FOLIC ACID 1 TAB TABLET PO SCH (09:07)
[2016-09-21] MEDS: CHOLECALCIFEROL 5,000 UNIT TABLET PO SCH (12:13)
[2016-09-21] MEDS: ALBUTEROL SULFATE 2.5 MG/3 ML VIAL.NEB IH PRN (13:24)
[2016-09-21] MEDS: INSULIN GLARGINE,HUM.REC.ANLOG 100 UNITS/ML VIAL SC SCH (20:19)
[2016-09-22 04:27] VITALS: BP 128/70
[2016-09-22] MEDS: INSULIN LISPRO 100 UNITS/ML VIAL SC SCH ×2 (06:56→11:40)
[2016-09-22] MEDS ORDERED: LEVOFLOXACIN/D5W 750 MG/150 ML BAG IV SCH (08:15)
[2016-09-22 08:19] LABS: INR 2.31 INR (0.90-1.10)
[2016-09-22] MEDS: MULTIVITAMIN/IRON/FOLIC ACID 1 TAB TABLET PO SCH (09:45)
[2016-09-22] MEDS: SACCHAROMYCES BOULARDII 250 MG CAPSULE PO SCH (09:45)
[2016-09-22] MEDS: amLODIPine BESYLATE 10 MG TABLET PO SCH (09:45)
[2016-09-22] MEDS: NYSTATIN 30 APPL TUBE TP SCH (09:45)
[2016-09-22] MEDS: POLYETHYLENE GLYCOL 3350 119 GM BTL PO SCH (11:36)
[2016-09-22] MEDS: CHOLECALCIFEROL 5,000 UNIT TABLET PO SCH (11:39)
--- NOTE | 2016-09-22 12:21 | DS ---
(1) Bacteremia Problem: Acute (2) Charcot foot due to diabetes mellitus Problem: Acute Procedures Performed: none Discharge Disposition: Home self care Disposition: Home self-care Condition: Good Discharge Activity: Activity as tolerated Discharge Diet: Consistent carbs Referrals: Maritza Carter MD [Primary Care Provider] - One Week Melyssa Quinn DPM [Staff Physician] - (In wound clinic in 1-2 weeks) Problem Oriented Discharge Instructions to Patient/Family: Bacteremia Additional Patient Instructions (free text): Levaquin 750mg IV q24 hours through [facility] 09/23 and 09/24. Then start Levaquin 750mg by mouth daily on 09/25 for two weeks. Prescriptions (Any new or edited meds): Levofloxacin [Levaquin] 750 mg PO DAILY #14 tablet Levofloxacin/D5w [Levaquin] 750 mg IV Q24H #2 bag Complete Home Medications List: Complete Home Medication List: Albuterol Sulfate [Proair Hfa] 1 - 2 puff IH Q4H PRN #1 inhaler 02/07/16 Albuterol Sulfate/Ipratropium [Duoneb 2.5-0.5MG/3ML Soln] 3 ml IH TID PRN Acetaminophen [Tylenol] 650 mg PO Q4H PRN #30 tablet 09/18/16 Cholecalciferol [Vitamin D] 5,000 unit PO DAILY@1200 #30 tablet 09/18/16 HYDROcodone/ACETAMINOPHEN [[place] 5-325] 1 each PO Q6H PRN #30 tablet 09/18/16 Insulin Glargine,Hum.rec.anlog [Lantus] 15 units SC HS #1 vial 09/18/16 Insulin Lispro [Humalog] 0 units SC AC #7 vial 09/18/16 Multivitamin/Iron/Folic Acid [Certagen] 1 tab PO DAILY #7 tablet 09/18/16 Polyethylene Glycol 3350 [Miralax] 17 gm PO DAILY 1 Days 09/18/16 Saccharomyces Boulardii [Florastor] 250 mg PO BID #1 capsule 09/18/16 Warfarin Sodium [Coumadin] 5 mg PO MoWeFr@1700 #1 tablet 09/18/16 Warfarin Sodium [Coumadin] 7.5 mg PO SuTuThSa@1700 #1 tablet 09/18/16 amLODIPine BESYLATE [Norvasc] 10 mg PO DAILY #1 tablet 09/18/16 Levofloxacin [Levaquin] 750 mg PO DAILY #14 tablet 09/22/16 Levofloxacin/D5w [Levaquin] 750 mg IV Q24H #2 bag 09/22/16
[2016-09-22] MEDS ORDERED: WARFARIN SODIUM 1 TAB TAB PO SCH (17:00)
[2016-09-22] MEDS ORDERED: WARFARIN SODIUM 7.5 MG TABLET PO SCH (17:00)
[2016-09-23] MEDS ORDERED: WARFARIN SODIUM 5 MG TABLET PO SCH (17:00)
== END 2016-09-22 13:57 | disposition home or self-care (01) | DRG 638 ==
LOC: MS 11:28
PROVIDERS: ADMIT Internal Medicine; ATTEND Internal Medicine
DX: E10.621 Type 1 diabetes mellitus with foot ulcer (principal); R78.81 Bacteremia; Z79.2 Long term (current) use of antibiotics; L97.529 Non-pressure chronic ulcer of other part of left foot with unspecified severity; E10.610 Type 1 diabetes mellitus with diabetic neuropathic arthropathy; D72.829 Elevated white blood cell count, unspecified; E10.22 Type 1 diabetes mellitus with diabetic chronic kidney disease; N18.3 Chronic kidney disease, stage 3 (moderate); S22.42XD Multiple fractures of ribs, left side, subsequent encounter for fracture with routine healing; W19.XXXD Unspecified fall, subsequent encounter

== ENCOUNTER 2016-12-29 23:06 | Inpatient (IN) | payer BC, MEDICARE ==
--- NOTE | 2016-12-29 23:50 | ERNOTE ---
Medical Problem HPI - General Chief Complaint: Diabetes Related Problem Time Seen by Provider: 12/29/16 23:33 Source: patient Exam Limitations: no limitations - Immun/Allergies/Home Medications Immunizations: IMMUNIZATION HX Immunizations Up to Date Yes History of Influenza Vaccine Yes Hx Pneumococcal Vaccination No Allergies/Adverse Reactions: Allergies No Known Allergies Allergy (Verified 12/30/16 01:07) Home Medications: HOME MEDICATIONS Albuterol Sulfate [Proair Hfa] 1 - 2 puff IH Q4H PRN #1 inhaler 02/07/16 [Last Taken 09/01/16] Acetaminophen [Tylenol] 650 mg PO Q4H PRN #30 tablet 09/18/16 [Last Taken Unknown] Multivitamin/Iron/Folic Acid [Certagen] 1 tab PO DAILY #7 tablet 09/18/16 [Last Taken Unknown] Polyethylene Glycol 3350 [Miralax] 17 gm PO DAILY 1 Days btl 09/18/16 [Last Taken Unknown] Warfarin Sodium [Coumadin] 5 mg PO MoWeFr@1700 #1 tablet 09/18/16 [Last Taken Unknown] Warfarin Sodium [Coumadin] 7.5 mg PO SuTuThSa@1700 #1 tablet 09/18/16 [Last Taken Unknown] Albuterol Sulfate/Ipratropium [Duoneb 2.5-0.5MG/3ML Soln] 3 ml IH TID 12/30/16 [ Last Taken Unknown] Cholecalciferol (Vitamin D3) [Vitamin D] 2,000 unit PO DAILY 12/30/16 [Last Taken Unknown] Escitalopram Oxalate [Lexapro] 10 mg PO DAILY 12/30/16 [Last Taken Unknown] Ferrous Sulfate 325 mg PO TID 12/30/16 [Last Taken Unknown] Insulin Glargine,Hum.rec.anlog [Lantus] 20 units SC HS 12/30/16 [Last Taken Unknown] Insulin Lispro [Humalog] 5 units SC AC 12/30/16 [Last Taken Unknown] Losartan Potassium [Cozaar] 50 mg PO DAILY 12/30/16 [Last Taken Unknown] [place]-3 Fatty Acids/Fish Oil [Fish Oil 1,000 mg Capsule] 1 cap PO DAILY [Last Taken Unknown] - History of Present History Narrative: Pt states his blood sugars have been increased for some time. Today they have been over 400. He states he has not taken insulin this evening. Timing: getting worse Severity: moderate Review of Systems - Review of Systems Constitutional: Present: recent illness - was treated. Absent: fever, chills, diaphoresis EYE: Present: no symptoms reported ENT: Present: no symptoms reported Respiratory: Absent: shortness of breath Cardiology: Absent: chest pain Gastrointestinal/Abdominal: Absent: nausea, vomiting Genitourinary: Absent: frequency, pain, dysuria Musculoskeletal: Present: joint pain Skin: Present: change in color - left 2nd toe became red yesterday. Neurological: Present: no symptoms reported Endocrine: Present: flushing, increased urine Hematologic/Lymphatic: Absent: swollen glands Psych: Present: no symptoms reported - Patient's Past Medical History Patient History - Medical: Diabetes Type 1 Patient History - Cardiac/Respiratory: Atrial Fibrillation, Hypertension, Pneumonia, Other Patient History - Cancer: No Hx of Cancer Patient History - Surgical Procedures: Total Hip Replacement Patient History - Other: AIDS - Family History Mother Family History - Medical: , History Unknown Father Family History - Medical: Sister Family History - Medical: Family History - Cardiac/Respiratory: History Unknown Family History - Cancer: Other - Social History Living Situations: spouse Abuse History: No History of abuse Psych History: No pertinent hx Smoking Status: Never smoker Have you smoked in the past 12 months: No Do you dip or chew tobacco: No Alcohol Use: none Drug Use: none - Immunizations Immunizations Up to Date: Yes Hx Pneumococcal Vaccination: No History of Influenza Vaccine: Yes Physical Exam - Physical Exam General Appearance: Present: wd/wn, alert, mild distress Head Exam: Present: normal inspection, no evidence of injury Ears, Nose, Throat: Present: normal ENT inspection Neck: Present: normal inspection, supple, full range of motion Respiratory: Present: no respiratory distress, no accessory muscle use, lungs clear Cardiovascular/Chest: Present: regular rate, rhythm, no murmur, normal peripheral pulses Peripheral Pulses: N=norm/S=strong/W=weak/B=bound/A=absent: Dorsalis-pedis (R): Weak Gastrointestinal/Abdominal: Present: normal bowel sounds, nondistended, soft Extremity Exam: Present: extremity edema - left foot, other - left foot has charcot deformity with pressure ulcer on the plantar surface. Second toe black , third toe previously amputated, 4th and 5th toe curled. 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 Second toe black with some drainage. Lymphatic Exam: Present: no adenopathy ED Progress - Results and Orders Patient's Lab Results:: I have reviewed the patient's lab results. Results and Orders: Laboratory Tests 12/29/16 12/29/16 12/29/16 23:45 23:45 23:45 WBC 26.4 H Hgb 8.7 L Hct 26.8 L Plt Count 285 Neutrophils % (Manual) 86 H ESR Greater than 120 H Sodium 123 L Potassium 5.7 H D Chloride 91 L Carbon Dioxide 21.3 L Anion Gap 16.4 H BUN 54 H D Creatinine 3.05 H D Random Glucose 614 H* Lactic Acid, Venous Calcium 8.0 C-Reactive Prot, Quant 49.6 H 12/29/16 23:45 WBC Hgb Hct Plt Count Neutrophils % (Manual) ESR Sodium Potassium Chloride Carbon Dioxide Anion Gap BUN Creatinine Random Glucose Lactic Acid, Venous 0.9 Calcium C-Reactive Prot, Quant - Vital Signs Patient's Vital Signs:: I have reviewed the patient's vital signs. Vital Signs: Vital Signs 12/29/16 23:13 Temperature 37.8 C H Pulse Rate 89 Respiratory 16 Rate Blood Pressure 144/54 O2 Sat by Pulse 96 Oximetry - EKG EKG: NSR - with sinus arrhythmia EKG read: Interp. by me - X-Ray X-Ray #1 X-Ray: foot Interpretation: Interp. by me X-ray Comments: significant air in the tissue around the second digit and 1st and 2nd MT. Degenerative changes moderate to severe. - Progress/Reassessment Chief Complaint: Diabetes Related Problem Progress Note-Subjective: 12/30/16 00:[address] Quinn for his feet. 12/30/16 00:[address] Quinn and she asked that I admit the patient to medicine and consult her. 12/30/16 01:17 Spoke with Brianna MELGOZA hospitalist. She agrees with admit. Will start antibiotics, fluids and give a dose of insulin here in the ED. Departure Clinical Impression: Gangrene of foot, Hyperglycemia due to type 1 diabetes mellitus - Departure Disposition: [facility] Condition: Fair
[2016-12-29 23:54] LABS: Hematocrit 26.8 % (42.0-52.0); Hemoglobin 8.7 gm/dL (13.5-18.0); Mean Corpuscular Hemoglobin 28.9 pg (27-31); Mean Corpuscular Hgb Conc 32.5 g/dl (32-36); Mean Platelet Volume 9.6 fl (6.0-9.5); Platelet Count 285 K/mm3 (150-450); Red Blood Count 3.01 M/mm3 (4.7-6.0); Red Cell Distribution Width 13.8 % (11.5-14.0); White Blood Count 26.4 K/mm3 (4.0-10.5)
[2016-12-29 23:57] LABS: Total Cells Counted 100
[2016-12-30 00:19] LABS: Anion Gap 16.4 mmol/L (6.8-13.8); BUN/Creatinine Ratio 17.7 (9.0-21.6); Band 8 % (0-2.0); Carbon Dioxide 21.3 mmol/L (24-32.6); Estimated Creat Clear 26.1; Lymphocyte 2 % (20-51); Monocyte 4 % (0-9); Neutrophil 86 % (42-75); Neutrophil # 22.7 K/mm3 (1.3-6.0); Potassium 5.7 mmol/L (3.4-4.6)
[2016-12-30 00:20] LABS: Toxic Granulation 1+
[2016-12-30 00:21] LABS: Dohle Bodies 1+; Hypersegmented Polys 1+
[2016-12-30 00:22] LABS: Hypochromia 1+; Microcytosis 1+; Poikilocytosis 1+
[2016-12-30 00:24] LABS: Platelet Estimate Normal (NORMAL)
[2016-12-30 00:34] LABS: CRP 49.6 mg/dL (0.0-0.9)
[2016-12-30 00:43] LABS: Prothrombin Time (Patient) 43.3 Seconds (9.0-11.0)
[2016-12-30] MEDS ORDERED: NORMAL SALINE 1,000 ML IV ONE ×3 (01:07→09:45)
[2016-12-30 01:10] LABS: INR 4.27 INR (0.90-1.10)
[2016-12-30] MEDS ORDERED: INSULIN LISPRO 100 UNITS/ML VIAL ONE (01:11)
[2016-12-30] MEDS ORDERED: PIPERACILLIN SODIUM/TAZOBACTAM 3.375 GM in DEXTROSE 5 % IN WATER 100 ML IV ONE ×2 (01:11)
[2016-12-30] MEDS ORDERED: INSULIN REGULAR, HUMAN 100 UNITS/ML VIAL SC ONE (01:12)
[2016-12-30] MEDS ORDERED: INSULIN LISPRO 100 UNITS/ML VIAL SC ONE (01:18)
[2016-12-30] MEDS ORDERED: INSULIN GLARGINE,HUM.REC.ANLOG 100 UNITS/ML VIAL SC SCH ×2 (01:30→21:00)
[2016-12-30] MEDS ORDERED: INSULIN GLARGINE,HUM.REC.ANLOG 100 UNITS/ML VIAL SC ONE (01:31)
[2016-12-30 03:08] LABS: Anion Gap 14.7 mmol/L (6.8-13.8); Blood Urea Nitrogen 54 mg/dL (6-23); Calcium * 7.7 mg/dL (7.9-10.9); Chloride 94 mmol/L (97-106); Estimated Creat Clear 26.6; Potassium 4.7 mmol/L (3.4-4.6); Sodium 126 mmol/L (132-142)
--- NOTE | 2016-12-30 03:08 | HP ---
Chief Complaint - Chief Complaint Date of Service: 12/30/16 Time of Service: 02:52 Chief Complaint: left foot gangrene History of Present Illness: 66 years old white male adm to the hospital with reports of left 2nd toe necrotic, left foot swelling and redness and hyperglycemia. PMH significant for Charcot foot due to diabetes mellitus type I, diabetic neuropathy, chronic renal failure stage III , peripheral arterial disease , hypertension, umbilical hernia, small without obstruction and diabetic ulcer left foot. Pt stated yesterday he noticed his 2nd toe of left foot was marilynn from rubbing against his work booths and blood glucose elevated. Today he was having chills, fever, left foot had been swollen and the toe was black with malodorous. pt stated he was following up with Dr Quinn for plantar ulcer to left foot, thats has been healing well. He is been seen by scientific diver in [place] for uncontrolled diabetes. In ER X-Ray left foot: concerning for gas gangrene, he was initiated on zosyn, vancomycin, blood cultures and wound cultures pending. Beside Incision and drainage of 2nd toe of left foot performed by Dr Quinn. Plan of care discussed with pt he verbalized understanding and agrees. - Patient's Past Medical History Patient History - Medical: Diabetes Type 2 Insulin Dependent, Renal Disease - stage III Patient History - Cardiac/Respiratory: CHF, Hypertension, Pneumonia Patient History - Cancer: No Hx of Cancer Patient History - Surgical Procedures: Amputation, Total Hip Replacement, Other , Hernia Repair Patient History - Other: AIDS - Family History Mother Family History - Medical: , History Unknown Family History - Cardiac/Respiratory: History Unknown Family History - Cancer: Other Father Family History - Medical: , History Unknown Family History - Cardiac/Respiratory: History Unknown Family History - Cancer: Lung Sister Family History - Medical: Family History - Cardiac/Respiratory: History Unknown Family History - Cancer: Other - Social History Living Situations: spouse Abuse History: No History of abuse Psych History: No pertinent hx Smoking Status: Never smoker Have you smoked in the past 12 months: No Do you dip or chew tobacco: No Alcohol Use: none Drug Use: none - Immunizations Immunizations Up to Date: Yes Hx Pneumococcal Vaccination: No History of Influenza Vaccine: Yes Review Of Systems (GEN) - Review of Systems Generalized/Overall Review: Present: Chills, Fever, Malaise EENTM: Present: No Symptoms Reported Respiratory: Present: No Symptoms Reported Cardiac: Present: No Symptoms Reported Abdominal: Present: No Symptoms Reported Genitourinary: Present: No Symptoms Reported Musculoskeletal: Present: Joint Swelling Neurological: Present: No Symptoms Reported Skin: Present: Change in Color Immunizations: IMMUNIZATION HX Immunizations Up to Date Yes History of Influenza Vaccine Yes Hx Pneumococcal Vaccination No Allergies/Adverse Reactions: Allergies Allergy/AdvReac Type Severity Reaction Status Date / Time No Known Allergies Allergy Verified 12/30/16 01:07 Home Medications: HOME MEDICATIONS Albuterol Sulfate [Proair Hfa] 1 - 2 puff IH Q4H PRN #1 inhaler 02/07/16 [Last Taken 09/01/16] Acetaminophen [Tylenol] 650 mg PO Q4H PRN #30 tablet 09/18/16 [Last Taken Unknown] Multivitamin/Iron/Folic Acid [Certagen] 1 tab PO DAILY #7 tablet 09/18/16 [Last Taken Unknown] Polyethylene Glycol 3350 [Miralax] 17 gm PO DAILY 1 Days btl 09/18/16 [Last Taken Unknown] Warfarin Sodium [Coumadin] 5 mg PO MoWeFr@1700 #1 tablet 09/18/16 [Last Taken Unknown] Warfarin Sodium [Coumadin] 7.5 mg PO SuTuThSa@1700 #1 tablet 09/18/16 [Last Taken Unknown] Albuterol Sulfate/Ipratropium [Duoneb 2.5-0.5MG/3ML Soln] 3 ml IH TID 12/30/16 [ Last Taken Unknown] Cholecalciferol (Vitamin D3) [Vitamin D] 2,000 unit PO DAILY 12/30/16 [Last Taken Unknown] Escitalopram Oxalate [Lexapro] 10 mg PO DAILY 12/30/16 [Last Taken Unknown] Ferrous Sulfate 325 mg PO TID 12/30/16 [Last Taken Unknown] Insulin Glargine,Hum.rec.anlog [Lantus] 20 units SC HS 12/30/16 [Last Taken Unknown] Insulin Lispro [Humalog] 5 units SC AC 12/30/16 [Last Taken Unknown] Losartan Potassium [Cozaar] 50 mg PO DAILY 12/30/16 [Last Taken Unknown] [place]-3 Fatty Acids/Fish Oil [Fish Oil 1,000 mg Capsule] 1 cap PO DAILY [Last Taken Unknown] Exam - Exam Vital Signs: Vital Signs - Last Taken Temp 36.6 C 12/30/16 02:10 Pulse 82 12/30/16 02:10 Resp 16 12/30/16 02:10 BP 121/63 12/30/16 02:10 Pulse Ox 94 12/30/16 02:10 Constitutional: Present: Alert, Oriented x3, Cooperative, No distress ENT Exam: Present: hearing grossly normal Eye Exam: bilateral eye: normal inspection Neck: Present: full range of motion Back Exam: Present: normal inspection Breasts: Present: Exam deferred Respiratory: Present: chest non-tender, lungs clear, normal breath sounds, no respiratory distress Cardiovascular/Chest: Present: normal peripheral pulses, regular rate, rhythm, no chest tenderness Abdomen: Present: Normal bowel sounds, soft, nontender, nondistended /Rectal: Present: Exam deferred Extremity: Present: inflammation, lower extremity edema, pedal edema, other - left foot edema, gangrene 2nd toe Skin Exam: Present: other - left foot gangrene 2nd toe, cellulitis Neurologic: Present: oriented x 3 Appearance: Present: appropriate appearance Eye contact: Present: cooperative, good eye contact Thoughts: Present: normal thought pattern Diagnostic Studies: Laboratory Results WBC 26.4 K/mm3 (4.0-10.5) H 12/29/16 23:45 RBC 3.01 M/mm3 (4.7-6.0) L 12/29/16 23:45 Hgb 8.7 gm/dL (13.5-18.0) L 12/29/16 23:45 Hct 26.8 % (42.0-52.0) L 12/29/16 23:45 MCV 89.0 fl (78-100) 12/29/16 23:45 MCH 28.9 pg (27-31) 12/29/16 23:45 MCHC 32.5 g/dl (32-36) 12/29/16 23:45 RDW 13.8 % (11.5-14.0) 12/29/16 23:45 Plt Count 285 K/mm3 (150-450) 12/29/16 23:45 MPV 9.6 fl (6.0-9.5) H 12/29/16 23:45 Neutrophils % (Manual) 86 % (42-75) H 12/29/16 23:45 Band Neuts % (Manual) 8 % (0-2.0) H 12/29/16 23:45 Lymphocytes % (Manual) 2 % (20-51) L 12/29/16 23:45 Monocytes % (Manual) 4 % (0-9) 12/29/16 23:45 Neutrophils # (Manual) 22.7 K/mm3 (1.3-6.0) H 12/29/16 23:45 Lymphocytes # (Manual) 0.5 k/mm3 (1.5-3.5) L 12/29/16 23:45 Monocytes # (Manual) 1.1 k/mm3 (0.0-1.0) H 12/29/16 23:45 Hypersegmented Polys 1+ 12/29/16 23:45 Toxic Granulation 1+ 12/29/16 23:45 Toxic Vacuolation 1+ 12/29/16 23:45 Dohle Bodies 1+ 12/29/16 23:45 Platelet Estimate Normal (NORMAL) 12/29/16 23:45 Hypochromasia 1+ 12/29/16 23:45 Poikilocytosis 1+ 12/29/16 23:45 Microcytosis 1+ 12/29/16 23:45 ESR Greater than 120 mm/hr (0-10) H 12/29/16 23:45 PT 43.3 Seconds (9.0-11.0) H 12/29/16 23:45 INR (Anticoag Therapy) 4.27 INR (0.90-1.10) H* 12/29/16 23:45 Sodium 123 mmol/L (132-142) L 12/29/16 23:45 Plasma Sodium 131 mmol/L (130-142) 12/29/16 23:45 Potassium 5.7 mmol/L (3.4-4.6) H D 12/29/16 23:45 Chloride 91 mmol/L (97-106) L 12/29/16 23:45 Carbon Dioxide 21.3 mmol/L (24-32.6) L 12/29/16 23:45 Anion Gap 16.4 mmol/L (6.8-13.8) H 12/29/16 23:45 BUN 54 mg/dL (6-23) H D 12/29/16 23:45 Creatinine 3.05 mg/dL (0.4-1.4) H D 12/29/16 23:45 Est GFR (Non-Af Amer) 22 mL/min (60-130) L D 12/29/16 23:45 BUN/Creatinine Ratio 17.7 (9.0-21.6) 12/29/16 23:45 Random Glucose 614 mg/dL (70-110) H* 12/29/16 23:45 Lactic Acid, Venous 0.9 mmol/L (0.4-1.9) 12/29/16 23:45 Calcium 8.0 mg/dL (7.9-10.9) 12/29/16 23:45 C-Reactive Prot, Quant 49.6 mg/dL (0.0-0.9) H 12/29/16 23:45 Assessment/Plan - Narrative Narrative: Gangrene foot seen on X-Ray gas gangrene Pt report necrotic tissue to left foot 2nd toe 12/30/16 S/P Incision and drainage left foot Continue with zosyn and vancomycin pharmacy to dose. Dr Quinn consulted and following, plan for further amputation later today. On adm ESR> 120, CRP 49.6 Bandemia -likely due to foot infection On adm WBC 26, bands 8 Blood culture and wound cultures pending Continue with IVF and antbx A-fib Hold coumadin INR 4.25 supertherapeutic Continue with Home meds Anemia on adm hgb/Hct---->8.7/26.8 monitor cbc Diabetes type I On adm BG --->614--->548---> Lantus 20 units and Humalog was given in ER Continue to monitor BG Q2hrs Acute on Chronic renal failure- On adm Bun/Cre 54/3.05 Continue with IVF Monitor bmp Code status: Full GI ppx:pepcid VTE ppx:therapeutic Coumadin on hold pt supertherapeutic Time 45 minutes and previous record reviewed, case discussed with Dr piña - Assessment/Plan (1) Gangrene of foot Problem: Acute (2) Hyperglycemia due to type 1 diabetes mellitus Problem: Acute (3) Anemia Problem: Chronic Qualifiers: Anemia type: unspecified type Qualified Code(s): D64.9 - Anemia, unspecified (4) PAF (paroxysmal atrial fibrillation) Problem: Acute (5) Bandemia Problem: Acute (6) CKD (chronic kidney disease) Problem: Chronic Qualifiers: Chronic kidney disease stage: stage 3 (moderate) Qualified Code(s): N18.3 - Chronic kidney disease, stage 3 (moderate)
[2016-12-30 03:10] LABS: Glucose * 548 mg/dL (70-110)
--- NOTE | 2016-12-30 03:10 | CONS ---
[facility] - General Date of Service: 12/30/16 Narrative: Pt came to ED for c/o increasing blood sugars over the past several days. On presentation, was found to have redness, swelling, and gangrenous changes to the left foot, most notable about the 2nd toe area. Xrays were obtained, concerning for gas gangrene. Pt is known to my practice and I have been actively treating a plantar foot ulceration that has been progressing well. Pt states that yesterday he did notice some bleeding coming from the toe when he went to shower, however it did not look bad. He did not notice any redness, swelling, or warmth to the area. He washed the toe with soap and water and applied a dry dressing. He began to feel progressively worse through the day and eventually had his bring him to the ED. I was called by ERP with xray concerns for gas gangrene. It was recommended pt be admitted and I was consulted for surgical evaluation. Source: patient Exam Limitations: no limitations - History of Present Illness Timing/Duration: getting worse Severity: severe Associated Symptoms: fever/chills, malaise, weakness Allergies/Adverse Reactions: Allergies No Known Allergies Allergy (Verified 12/30/16 01:07) Home Medications: Home Medications Medication Instructions Recorded Last Taken Albuterol Sulfate/Ipratropium 3 ml IH TID 12/30/16 Unknown [Duoneb 2.5-0.5MG/3ML Soln] Cholecalciferol (Vitamin D3) 2,000 unit PO DAILY 12/30/16 Unknown [Vitamin D] Escitalopram Oxalate [Lexapro] 10 mg PO DAILY 12/30/16 Unknown Ferrous Sulfate 325 mg PO TID 12/30/16 Unknown Insulin Glargine,Hum.rec.anlog 20 units SC HS 12/30/16 Unknown [Lantus] Insulin Lispro [Humalog] 5 units SC AC 12/30/16 Unknown Losartan Potassium [Cozaar] 50 mg PO DAILY 12/30/16 Unknown [place]-3 Fatty Acids/Fish Oil [Fish 1 cap PO DAILY 12/30/16 Unknown Oil 1,000 mg Capsule] - Patient's Past Medical History Patient History - Medical: Diabetes Type 2 Insulin Dependent, Renal Disease Patient History - Cardiac/Respiratory: CHF, Hypertension, Pneumonia Patient History - Cancer: No Hx of Cancer Patient History - Surgical Procedures: Amputation, Total Hip Replacement, Other - Family History Mother Family History - Medical: , History Unknown Family History - Cardiac/Respiratory: History Unknown Family History - Cancer: Other Father Family History - Medical: , History Unknown Family History - Cardiac/Respiratory: History Unknown Family History - Cancer: Lung Sister Family History - Medical: Family History - Cardiac/Respiratory: History Unknown Family History - Cancer: Other - Social History Living Situations: spouse Abuse History: No History of abuse Psych History: No pertinent hx Smoking Status: Never smoker Have you smoked in the past 12 months: No Do you dip or chew tobacco: No Alcohol Use: none Drug Use: none - Immunizations Immunizations Up to Date: Yes Hx Pneumococcal Vaccination: No History of Influenza Vaccine: Yes Procedures CL REDUC DISLOC-HAND/FNG (02/06/06) COLONOSCOPY (04/18/10) DPT ADMINISTRATION (10/14/11) EXCISION FOOT JOINT NEC (03/17/06) EXCISION OF L FOOT SUBCU/FASCIA, OPEN APPROACH (09/11/16) LINEAR REP LID LACER (05/01/01) LOC EXC BONE LESION NEC (04/04/03) LOC EXC LES METATAR/TAR (11/04/07) NONEXCIS DEBRID OF WOUND, INFECT, OR BURN (05/27/06) OP RED-INT FIX RAD/ULNA (05/02/01) OPEN REDUC-INT FIX FEMUR (12/18/11) PART OSTECT-METATAR/TAR (11/04/07) SKIN REPAIR & PLASTY NEC (07/01/07) TOE AMPUTATION (08/07/10) ULTRASONOGRAPHY OF RIGHT AND LEFT HEART (09/11/16) Medications - Medications Current Medications: Current Medications Insulin Glargine (Lantus) 20 units SC HS [facility] Stop: 01/29/17 01:31 Last Admin: 12/30/16 01:41 Dose: 20 units Review of Systems - Review of Systems Generalized/Overall Review: Present: Weakness, Chills, Malaise Musculoskeletal: Present: Other - Left foot pain Neurological: Present: Numbness Skin: Present: Other - Black left 2nd toe, ulceration to plantar left foot. Physical Examination - Exam Narrative: Xrays reviewed showing significant air in the tissues surrounding the 1st and 2nd MtPJ areas, some air extending to the dorsal foot. Swelling surrounding the area of the 2nd toe. Vital Signs: Vital Signs - Last Taken Temp 36.6 C 12/30/16 02:10 Pulse 82 12/30/16 02:10 Resp 16 12/30/16 02:10 BP 121/63 12/30/16 02:10 Pulse Ox 94 12/30/16 02:10 O2 Oxygen Delivery Method Room Air Constitutional: Present: Oriented x3, Cooperative, Mild distress Peripheral Pulses: dorsalis-pedis (L): 1+ Extremity: Present: other - Left foot pain Skin Exam: Present: other - Black gangrenous changes to the left 2nd toe into the dorsum of the foot. Swelling to the midfoot. Crepitation on palpation of tissues to the forefoot. Foul smelling drainage from the 2nd toe. Maceration of surrounding skin. Tender on palpation to the level of the ankle. Ulcer to plantar left foot 3 x 1 x 0.1 cm. Stable, no active drainage, no localized erythema or swelling. No crepitation to this area. Neurologic: Present: sensory deficit Appearance: Present: disheveled - Assessments/Findings (1) Gangrene of foot Diagnosis(s): Discussed diagnosis and treatment plans with pt at bedside. Verbal consent obtained for immediate bedside I&D. Site prepped with betadine. A #15 blade utilized to make skin to bone incision overlying area of crepitance and gangrenous changes to the left foot/2nd toe. Significant foul odor present, significant necrosis of tissues noted. Gas released from the site on incision and with manual compression of the tissues. Can dissect with finger from the incision line medially surrounding the 1st MtPJ. Cannot dissect with finger laterally. This area is flushed with copious sterile saline. A deep swab culture is obtained. Site is packed with saline moistened gauze and dressed with gauze, cale, and tape. Pt will require more extensive surgery to include , but not limited too transmetatarsal amputation. Discussed that the amputation site will be left at least partially open and he may require future debridement in the OR, potiential for higher amputation if infection persists. Pt states understanding of this plan. He is to remain NPO at this time and will be scheduled in the OR today for amputation. Will add in Clindamycin IV. Problem: Acute
[2016-12-30] MEDS ORDERED: VANCOMYCIN HCL 1 GM in DEXTROSE 5 % IN WATER 250 ML IV SCH ×2 (03:45)
[2016-12-30] MEDS: NORMAL SALINE 1,000 ML IV PRN ×2 (04:09→18:48)
[2016-12-30 04:10] LABS: Urine Bilirubin Negative (NEGATIVE); Urine Blood 25 /ul (NEGATIVE); Urine Ketone 5 mg/dL (NEGATIVE); Urine Nitrite Negative (NEGATIVE); Urine Protein 30 mg/dL (NEGATIVE); Urine Urobilinogen Normal (NORMAL); Urine pH 5.5 pH (5.0-7.0)
[2016-12-30 04:11] LABS: Urine Color Yellow
[2016-12-30] MEDS ORDERED: ACETAMINOPHEN 325 MG TABLET PO PRN (04:11)
[2016-12-30 04:12] LABS: Urine Appearance Slightly Cloudy; Urine Bacteria None Seen; Urine RBC 0-5 /hpf (0-5); Urine WBC 0-5 /hpf (0-5)
[2016-12-30] MEDS ORDERED: ALBUTEROL SULFATE 2.5 MG/0.5 ML VIAL.NEB IH PRN (04:30)
[2016-12-30] MEDS ORDERED: ALBUTEROL SULFATE/IPRATROPIUM 3 ML NEBU IH ONE (05:44)
[2016-12-30 06:03] LABS: Hematocrit 26.4 % (42.0-52.0); Hemoglobin 8.6 gm/dL (13.5-18.0); Mean Corpuscular Hemoglobin 28.7 pg (27-31); Mean Corpuscular Hgb Conc 32.6 g/dl (32-36); Mean Platelet Volume 9.8 fl (6.0-9.5); Platelet Count 266 K/mm3 (150-450); Red Cell Distribution Width 13.7 % (11.5-14.0); White Blood Count 21.1 K/mm3 (4.0-10.5)
[2016-12-30 06:07] LABS: Prothrombin Time (Patient) 37.2 Seconds (9.0-11.0); Total Cells Counted 100
[2016-12-30 06:12] LABS: INR 3.67 INR (0.90-1.10)
[2016-12-30] MEDS: ALBUTEROL SULFATE/IPRATROPIUM 3 ML NEBU IH SCH ×3 (06:17→18:06)
[2016-12-30 06:19] LABS: Band 5 % (0-2.0); Immature Granulocyte 1 (0-1); Lymphocyte 4 % (20-51); Monocyte 1 % (0-9); Neutrophil 89 % (42-75); Neutrophil # 18.8 K/mm3 (1.3-6.0)
[2016-12-30 06:20] LABS: Dohle Bodies 1+; Hypochromia Trace; Platelet Estimate Normal (NORMAL); Toxic Granulation 1+
[2016-12-30 06:24] LABS: Anion Gap 14.9 mmol/L (6.8-13.8); BUN/Creatinine Ratio 19.8 (9.0-21.6); Calcium * 8.1 mg/dL (7.9-10.9); Carbon Dioxide 22.2 mmol/L (24-32.6); Estimated Creat Clear 30.4; Potassium 5.1 mmol/L (3.4-4.6)
[2016-12-30 07:20] LABS: CRP 53.2 mg/dL (0.0-0.9)
[2016-12-30] MEDS: INSULIN LISPRO 100 UNITS/ML VIAL SC SCH ×4 (07:23→20:18)
--- NOTE | 2016-12-30 08:56 | PN ---
Cj Note - Interim Narrative: 12/30/16 08:54 I saw and examined this patient on 12/30/2016. We will continue with is IV antibiotics for Toe gangrene, left foot. He may proceed with anticipated surgical procedure today. Will keep him on insulin coverage for his elevated BS. Will also continue with IVF for his ARF on CRF.
[2016-12-30] MEDS ORDERED: BUPIVACAINE HCL 50 ML VIAL IJ ONE (09:00)
[2016-12-30] MEDS ORDERED: LIDOCAINE HCL 50 ML VIAL IJ ONE (09:00)
[2016-12-30] MEDS: LOSARTAN POTASSIUM 50 MG TABLET PO SCH (12:17)
[2016-12-30] MEDS: MULTIVITAMIN/IRON/FOLIC ACID 1 TAB TABLET PO SCH (12:17)
[2016-12-30] MEDS: CHOLECALCIFEROL 1,000 UNIT CAPSULE PO SCH (12:18)
[2016-12-30] MEDS: OMEGA-3 FATTY ACIDS 1 CAP CAPSULE PO SCH (12:18)
[2016-12-30] MEDS: POLYETHYLENE GLYCOL 3350 119 GM BTL PO SCH (12:18)
[2016-12-30] MEDS: ESCITALOPRAM OXALATE 10 MG TAB PO SCH (12:18)
[2016-12-30] MEDS: FERROUS SULFATE 325 MG TABLET PO SCH ×3 (12:20→17:07)
[2016-12-30] MEDS: PIPERACILLIN SODIUM/TAZOBACTAM 3.375 GM in DEXTROSE 5 % IN WATER 100 ML IV SCH ×4 (14:27→22:48)
[2016-12-30] MEDS: HYDROcodone/ACETAMINOPHEN 1 EACH TABLET PO PRN (17:11)
[2016-12-30] MEDS: INSULIN GLARGINE,HUM.REC.ANLOG 100 UNITS/ML VIAL SC SCH (20:17)
[2016-12-31 05:54] LABS: Prothrombin Time (Patient) 36.5 Seconds (9.0-11.0)
[2016-12-31 05:55] LABS: INR 3.6 INR (0.90-1.10)
[2016-12-31 05:59] LABS: Hematocrit 25.5 % (42.0-52.0); Hemoglobin 8.2 gm/dL (13.5-18.0); Mean Cell Volume 87.9 fl (78-100); Mean Corpuscular Hemoglobin 28.3 pg (27-31); Mean Corpuscular Hgb Conc 32.2 g/dl (32-36); Mean Platelet Volume 9.9 fl (6.0-9.5); Platelet Count 334 K/mm3 (150-450); White Blood Count 16.8 K/mm3 (4.0-10.5)
[2016-12-31 06:02] LABS: Total Cells Counted 100
[2016-12-31] MEDS: ALBUTEROL SULFATE/IPRATROPIUM 3 ML NEBU IH SCH ×3 (06:06→18:23)
[2016-12-31 06:07] LABS: Anion Gap 12.4 mmol/L (6.8-13.8); BUN/Creatinine Ratio 20.5 (9.0-21.6); Calcium * 7.9 mg/dL (7.9-10.9); Estimated Creat Clear 40.9; Potassium 4.4 mmol/L (3.4-4.6)
[2016-12-31 06:30] LABS: Band 2 % (0-2.0); Eosinophil 1 % (0-3); Hypochromia Trace; Immature Granulocyte 1 (0-1); Lymphocyte 10 % (20-51); Monocyte 4 % (0-9); Neutrophil 82 % (42-75); Neutrophil # 13.8 K/mm3 (1.3-6.0); Platelet Estimate Normal (NORMAL)
[2016-12-31] MEDS: INSULIN LISPRO 100 UNITS/ML VIAL SC SCH ×4 (08:11→21:07)
[2016-12-31] MEDS: PIPERACILLIN SODIUM/TAZOBACTAM 3.375 GM in DEXTROSE 5 % IN WATER 100 ML IV SCH ×6 (08:11→22:55)
--- NOTE | 2016-12-31 08:16 | PN ---
Subjective - Date and Time Seen Date: 12/31/16 Time: 08:10 Subjective Narrative: Patient is feeling better. had TMA yesterday, left foot. Objective - Review of Systems Generalized/Overall Review: Denies: Weakness, Chills Respiratory: Denies: Cough, Shortness of Breath, Orthopnea Cardiac: Denies: Chest Pain, Edema, Palpitations Abdominal: Denies: Nausea, Vomiting Genitourinary Symptoms: Denies: Urgency, Frequency Musculoskeletal Complaints: Reports: Joint Pain - Vitals Vitals: Last Vital Signs Temp 37.4 C 12/31/16 06:56 Pulse 94 12/31/16 06:56 Resp 18 12/31/16 06:56 BP 151/72 12/31/16 06:56 Pulse Ox 92 12/31/16 06:56 - Abnormal Lab Findings Abnormal Lab Findings: Abnormal Lab Results 12/31/16 12/31/16 12/31/16 Range/Units 05:30 05:30 05:30 WBC 16.8 H D (4.0-10.5) K/mm3 RBC 2.90 L (4.7-6.0) M/mm3 Hgb 8.2 L (13.5-18.0) gm/dL Hct 25.5 L (42.0-52.0) % MPV 9.9 H (6.0-9.5) fl Neutrophils % (Manual) 82 H (42-75) % Lymphocytes % (Manual) 10 L (20-51) % Neutrophils # (Manual) 13.8 H (1.3-6.0) K/mm3 PT 36.5 H (9.0-11.0) Seconds INR (Anticoag Therapy) 3.60 H (0.90-1.10) INR BUN 40 H (6-23) mg/dL Creatinine 1.95 H D (0.4-1.4) mg/dL Est GFR (Non-Af Amer) 37 L D (60-130) mL/min Random Glucose 180 H D (70-110) mg/dL B-Natriuretic Peptide 1648 H (5-350) pg/mL - Exam Constitutional: Present: Alert, Oriented x3, Cooperative ENT Exam: Present: hearing grossly normal Neck: Present: supple Respiratory: Present: normal breath sounds, No rales, No wheezing Cardiovascular/Chest: Present: regular rate, rhythm, no JVD, no murmur Extremity: Present: no calf tenderness, other - left foot wrapped in glen bandage -dressing dry Assessment/Plan - Problems/Diagnosis (1) Gangrene of foot Problem: Acute Narrative: s/p TMA. POD # 1.Tmax 37.8. 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
[2016-12-31] MEDS: VANCOMYCIN HCL 750 MG in DEXTROSE 5 % IN WATER 250 ML IV SCH ×2 (09:02)
[2016-12-31] MEDS: FERROUS SULFATE 325 MG TABLET PO SCH ×3 (09:06→16:56)
[2016-12-31] MEDS: OMEGA-3 FATTY ACIDS 1 CAP CAPSULE PO SCH (09:06)
[2016-12-31] MEDS: MULTIVITAMIN/IRON/FOLIC ACID 1 TAB TABLET PO SCH (09:06)
[2016-12-31] MEDS: ESCITALOPRAM OXALATE 10 MG TAB PO SCH (09:06)
[2016-12-31] MEDS: POLYETHYLENE GLYCOL 3350 119 GM BTL PO SCH (09:07)
[2016-12-31] MEDS: LOSARTAN POTASSIUM 50 MG TABLET PO SCH (09:07)
[2016-12-31] MEDS: CHOLECALCIFEROL 1,000 UNIT CAPSULE PO SCH (09:44)
--- NOTE | 2016-12-31 17:04 | PN ---
Subjective - Date and Time Seen Date: 12/31/16 Time: 04:00 Subjective Narrative: Pt seen at bedside resting. States that he is having intermittent shooting pains in his left foot, otherwise foot feels ok. Is very tired and is trying to get rest. Objective - Review of Systems Generalized/Overall Review: Reports: Fatigue Neurological: Reports: Numbness - Vitals Vitals: Last Vital Signs Temp 36.7 C 12/31/16 14:55 Pulse 96 12/31/16 14:55 Resp 18 12/31/16 14:55 BP 114/56 12/31/16 14:55 Pulse Ox 94 12/31/16 14:55 - Abnormal Lab Findings Abnormal Lab Findings: Abnormal Lab Results 12/31/16 12/31/16 12/31/16 Range/Units 05:30 05:30 05:30 WBC 16.8 H D (4.0-10.5) K/mm3 RBC 2.90 L (4.7-6.0) M/mm3 Hgb 8.2 L (13.5-18.0) gm/dL Hct 25.5 L (42.0-52.0) % MPV 9.9 H (6.0-9.5) fl Neutrophils % (Manual) 82 H (42-75) % Lymphocytes % (Manual) 10 L (20-51) % Neutrophils # (Manual) 13.8 H (1.3-6.0) K/mm3 PT 36.5 H (9.0-11.0) Seconds INR (Anticoag Therapy) 3.60 H (0.90-1.10) INR BUN 40 H (6-23) mg/dL Creatinine 1.95 H D (0.4-1.4) mg/dL Est GFR (Non-Af Amer) 37 L D (60-130) mL/min Random Glucose 180 H D (70-110) mg/dL B-Natriuretic Peptide 1648 H (5-350) pg/mL - Exam Constitutional: Present: Alert, Oriented x3, Cooperative Extremity: Present: other - Intermittent left foot pain Skin Exam: Present: other - Dressing to left foot CDI with moderate bloody drainage following surgery. Incision to left foot following TMA remains loosely approximated, sutures and packing intact. There is an area to the plantar medial flap that is showing signs of necrosis, otherwise skin is pink and viable. Packing pulled, serous drainage only at this time. No longer with malodor. Neurologic: Present: sensory deficit Appearance: Present: appropriate appearance Assessment/Plan - Problems/Diagnosis (1) Gangrene of foot Problem: Acute Narrative: Has had TMA, POD #1. Pain being well controlled on current medication. Packing pulled from incision and replaced. New DSD applied to left foot. To be kept CDI. Again discussed status of the foot with the patient. He will likely require another debridement, probably next week, to remove necrotic tissue from the plantar flap. Pending appearance of tissues, consider primary closure at that time. Will continue to assess daily. Continue IV ABX. Will likely require rodent exterminator IV ABX, up to 6 weeks. Await final culture results.
[2016-12-31] MEDS: INSULIN GLARGINE,HUM.REC.ANLOG 100 UNITS/ML VIAL SC SCH (21:08)
[2017-01-01] MEDS: NORMAL SALINE 1,000 ML IV PRN ×2 (03:58→22:30)
[2017-01-01 05:06] LABS: Mean Cell Volume 87.6 fl (78-100); Mean Corpuscular Hemoglobin 28.5 pg (27-31); Mean Corpuscular Hgb Conc 32.5 g/dl (32-36); Mean Platelet Volume 9.3 fl (6.0-9.5); Neutrophil # 8.2 K/mm3 (1.3-6.0); Neutrophil % 79.8 % (42-75.0); Platelet Count 341 K/mm3 (150-450); Red Blood Count 2.74 M/mm3 (4.7-6.0); White Blood Count 10.3 K/mm3 (4.0-10.5)
[2017-01-01 05:16] LABS: BUN/Creatinine Ratio 19.6 (9.0-21.6); Carbon Dioxide 25.1 mmol/L (24-32.6); Estimated Creat Clear 52.1; Potassium 5.1 mmol/L (3.4-4.6)
[2017-01-01 05:17] LABS: Prothrombin Time (Patient) 23.5 Seconds (9.0-11.0)
[2017-01-01 05:19] LABS: INR 2.33 INR (0.90-1.10)
[2017-01-01 05:20] LABS: Hemoglobin 7.8 gm/dL (13.5-18.0)
[2017-01-01] MEDS ORDERED: diphenhydrAMINE HCL 50 MG/ML VIAL IV ONE ×2 (05:43→08:00)
[2017-01-01] MEDS ORDERED: ACETAMINOPHEN 325 MG TABLET PO ONE ×2 (05:43→08:00)
[2017-01-01] MEDS: ALBUTEROL SULFATE/IPRATROPIUM 3 ML NEBU IH SCH ×3 (06:09→18:20)
[2017-01-01] MEDS: INSULIN LISPRO 100 UNITS/ML VIAL SC SCH ×4 (07:54→21:51)
[2017-01-01] MEDS: PIPERACILLIN SODIUM/TAZOBACTAM 3.375 GM in DEXTROSE 5 % IN WATER 100 ML IV SCH ×6 (07:54→22:22)
--- NOTE | 2017-01-01 08:20 | PN ---
Subjective - Date and Time Seen Date: 01/01/17 Time: 08:15 Subjective Narrative: Patient is feeling better. WBC is back to normal. CS is growing Staph species. Objective - Review of Systems Generalized/Overall Review: Reports: Weakness. Denies: Chills, Fever EENTM: Reports: No Symptoms Reported Respiratory: Denies: Cough, Shortness of Breath, Orthopnea Cardiac: Denies: Chest Pain, Edema, Palpitations Abdominal: Denies: Nausea, Vomiting Genitourinary Symptoms: Denies: Urgency, Frequency Musculoskeletal Complaints: Reports: Joint Pain - Vitals Vitals: Last Vital Signs Temp 36.7 C 01/01/17 06:38 Pulse 87 01/01/17 06:38 Resp 16 01/01/17 06:38 BP 154/70 01/01/17 06:38 Pulse Ox 97 01/01/17 06:38 - Abnormal Lab Findings Abnormal Lab Findings: Abnormal Lab Results 01/01/17 01/01/17 01/01/17 Range/Units 04:55 04:55 04:55 RBC 2.74 L (4.7-6.0) M/mm3 Hgb 7.8 L* (13.5-18.0) gm/dL Hct 24.0 L (42.0-52.0) % Immature Gran % (Auto) 1.00 H (0.001-0.429) % Immature Gran # (Auto) 0.10 H (0.000-0.0310) K/mm3 Neutrophils % 79.8 H (42-75.0) % Lymphocytes % 9.3 L (20-51) % Neutrophils # 8.2 H (1.3-6.0) K/mm3 Lymphocytes # 1.0 L (1.5-3.5) k/mm3 PT 23.5 H (9.0-11.0) Seconds INR (Anticoag Therapy) 2.33 H (0.90-1.10) INR Potassium 5.1 H (3.4-4.6) mmol/L BUN 30 H (6-23) mg/dL Creatinine 1.53 H D (0.4-1.4) mg/dL Est GFR (Non-Af Amer) 49 L D (60-130) mL/min Random Glucose 214 H (70-110) mg/dL Crossmatch 01/01/17 Range/Units 05:55 RBC (4.7-6.0) M/mm3 Hgb (13.5-18.0) gm/dL Hct (42.0-52.0) % Immature Gran % (Auto) (0.001-0.429) % Immature Gran # (Auto) (0.000-0.0310) K/mm3 Neutrophils % (42-75.0) % Lymphocytes % (20-51) % Neutrophils # (1.3-6.0) K/mm3 Lymphocytes # (1.5-3.5) k/mm3 PT (9.0-11.0) Seconds INR (Anticoag Therapy) (0.90-1.10) INR Potassium (3.4-4.6) mmol/L BUN (6-23) mg/dL Creatinine (0.4-1.4) mg/dL Est GFR (Non-Af Amer) (60-130) mL/min Random Glucose (70-110) mg/dL Crossmatch See Detail - Exam Constitutional: Present: Alert, Oriented x3, Cooperative ENT Exam: Present: hearing grossly normal Neck: Present: supple Respiratory: Present: normal breath sounds, No rales, No wheezing Cardiovascular/Chest: Present: regular rate, rhythm, no JVD, no murmur Abdomen: Present: Normal bowel sounds, soft, nontender, nondistended Extremity: Present: no pedal edema, no calf tenderness, other - left foot- wrapped in FLIP bandage, dry Assessment/Plan - Problems/Diagnosis (1) Gangrene of foot Problem: Acute Narrative: s/p TMA POD # 2. afebrile. awaiting final C & S results. continue wit IV Vanco and Zosyn in the meantime. PT working with him. if needing more may need to go to [place] before going home. ADDENDUM: WCS showing Staph Aureus MSSA r/o Anaerobe pathogen. BC x 2 showing staph species. Will continue with Zosyn to cover for Staph and Anaerobe until final results. His staph bacteremia is likely from his wound- MSSA . will d/c vanco. (2) Charcot foot due to diabetes mellitus Problem: Acute (3) Diabetes mellitus Problem: Acute Qualifiers: Diabetes mellitus type: type 2 Diabetes mellitus complication status: with kidney complications Diabetes mellitus complication detail: with chronic kidney disease Diabetes mellitus snf insulin use: with snf use Chronic kidney disease stage: stage 3 (moderate) Qualified Code(s): E11.22 - Type 2 diabetes mellitus with diabetic chronic kidney disease; N18.3 - Chronic kidney disease, stage 3 (moderate); N18.3 - Chronic kidney disease, stage 3 ( moderate); Z79.4 - correction (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; Z79.4 - correction ( 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; 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
[2017-01-01] MEDS: ESCITALOPRAM OXALATE 10 MG TAB PO SCH (08:40)
[2017-01-01] MEDS: FERROUS SULFATE 325 MG TABLET PO SCH ×3 (08:41→17:24)
[2017-01-01] MEDS: MULTIVITAMIN/IRON/FOLIC ACID 1 TAB TABLET PO SCH (08:41)
[2017-01-01] MEDS: OMEGA-3 FATTY ACIDS 1 CAP CAPSULE PO SCH (08:41)
[2017-01-01] MEDS: LOSARTAN POTASSIUM 50 MG TABLET PO SCH (08:41)
[2017-01-01] MEDS: CHOLECALCIFEROL 1,000 UNIT CAPSULE PO SCH (08:41)
[2017-01-01] MEDS: POLYETHYLENE GLYCOL 3350 119 GM BTL PO SCH (08:42)
[2017-01-01] MEDS: VANCOMYCIN HCL 750 MG in DEXTROSE 5 % IN WATER 250 ML IV SCH ×2 (11:30)
--- NOTE | 2017-01-01 11:59 | PN ---
Subjective - Date and Time Seen Date: 01/01/17 Time: 11:59 Subjective Narrative: Pt seen at bedside resting. States that his pain is well controlled and is trying not to take many pain medications. Has been seen by PT and is trying walker assist to keep weight off of his left foot. Objective - Review of Systems Generalized/Overall Review: Reports: Fatigue Neurological: Reports: Numbness, Weakness Skin: Reports: Other - left foot ulcer - Vitals Vitals: Last Vital Signs Temp 36.5 C 01/01/17 11:23 Pulse 70 01/01/17 11:23 Resp 18 01/01/17 11:23 BP 141/66 01/01/17 11:23 Pulse Ox 98 01/01/17 11:23 - Abnormal Lab Findings Abnormal Lab Findings: Abnormal Lab Results 01/01/17 01/01/17 01/01/17 Range/Units 04:55 04:55 04:55 RBC 2.74 L (4.7-6.0) M/mm3 Hgb 7.8 L* (13.5-18.0) gm/dL Hct 24.0 L (42.0-52.0) % Immature Gran % (Auto) 1.00 H (0.001-0.429) % Immature Gran # (Auto) 0.10 H (0.000-0.0310) K/mm3 Neutrophils % 79.8 H (42-75.0) % Lymphocytes % 9.3 L (20-51) % Neutrophils # 8.2 H (1.3-6.0) K/mm3 Lymphocytes # 1.0 L (1.5-3.5) k/mm3 PT 23.5 H (9.0-11.0) Seconds INR (Anticoag Therapy) 2.33 H (0.90-1.10) INR Potassium 5.1 H (3.4-4.6) mmol/L BUN 30 H (6-23) mg/dL Creatinine 1.53 H D (0.4-1.4) mg/dL Est GFR (Non-Af Amer) 49 L D (60-130) mL/min Random Glucose 214 H (70-110) mg/dL Crossmatch 01/01/17 Range/Units 05:55 RBC (4.7-6.0) M/mm3 Hgb (13.5-18.0) gm/dL Hct (42.0-52.0) % Immature Gran % (Auto) (0.001-0.429) % Immature Gran # (Auto) (0.000-0.0310) K/mm3 Neutrophils % (42-75.0) % Lymphocytes % (20-51) % Neutrophils # (1.3-6.0) K/mm3 Lymphocytes # (1.5-3.5) k/mm3 PT (9.0-11.0) Seconds INR (Anticoag Therapy) (0.90-1.10) INR Potassium (3.4-4.6) mmol/L BUN (6-23) mg/dL Creatinine (0.4-1.4) mg/dL Est GFR (Non-Af Amer) (60-130) mL/min Random Glucose (70-110) mg/dL Crossmatch See Detail - Exam Constitutional: Present: Alert, Oriented x3, Cooperative Extremity: Present: other - Intermittent left foot pain Skin Exam: Present: other - Dressing to left foot CDI with moderate bloody drainage following surgery. Incision at TMA site left foot remains loosely approximated with sutures intact. Packing in place. Upon removal, serous drainage only. There is an area to the medial plantar flap that is necrotic, will likely require excision. Remaining tissues pink and intact. Ulceration to plantar left foot stable, decreasing in size. Neurologic: Present: sensory deficit Appearance: Present: appropriate appearance Assessment/Plan - Problems/Diagnosis (1) Gangrene of foot Problem: Acute Narrative: Amputation site re-packed with 1/2" Iodoform packing gauze. New dressing of Adaptic, dry gauze, ABD pad, kerlix, cale, and FLIP bandage applied. To be kept CDI. Again discussed return to OR for repeat debridement of necrotic tissue, mostly the plantar medial flap. Would like to do primary closure at that time if possible, if not, consider application of wound vac. Pt is in agreement with this plan. Will await final culture results. Continue IV ABX until results available.
[2017-01-01 12:52] LABS: Hematocrit 28.3 % (42.0-52.0)
[2017-01-01] MEDS ORDERED: WARFARIN SODIUM 1 TAB TAB PO SCH (17:00)
[2017-01-01] MEDS ORDERED: WARFARIN SODIUM 7.5 MG TABLET PO SCH (17:00)
[2017-01-01] MEDS: INSULIN GLARGINE,HUM.REC.ANLOG 100 UNITS/ML VIAL SC SCH (21:52)
[2017-01-02 05:42] LABS: Hematocrit 26.5 % (42.0-52.0); Hemoglobin 8.6 gm/dL (13.5-18.0); Mean Corpuscular Hemoglobin 28.6 pg (27-31); Mean Corpuscular Hgb Conc 32.5 g/dl (32-36); Mean Platelet Volume 9.4 fl (6.0-9.5); Neutrophil # 6.5 K/mm3 (1.3-6.0); Neutrophil % 73.5 % (42-75.0); Platelet Count 368 K/mm3 (150-450); Red Blood Count 3.01 M/mm3 (4.7-6.0); Red Cell Distribution Width 14.6 % (11.5-14.0); White Blood Count 8.8 K/mm3 (4.0-10.5)
[2017-01-02 05:48] LABS: Prothrombin Time (Patient) 21.6 Seconds (9.0-11.0)
[2017-01-02 05:49] LABS: Anion Gap 10.9 mmol/L (6.8-13.8); Calcium * 8.6 mg/dL (7.9-10.9); Estimated Creat Clear 59.1; INR 2.14 INR (0.90-1.10); Potassium 4.9 mmol/L (3.4-4.6)
[2017-01-02 05:59] LABS: Hemoglobin A1C 8.7 % (4.00-6.0)
[2017-01-02] MEDS: ALBUTEROL SULFATE/IPRATROPIUM 3 ML NEBU IH SCH ×3 (06:06→18:21)
[2017-01-02] MEDS: INSULIN LISPRO 100 UNITS/ML VIAL SC SCH ×4 (07:06→20:30)
[2017-01-02] MEDS: PIPERACILLIN SODIUM/TAZOBACTAM 3.375 GM in DEXTROSE 5 % IN WATER 100 ML IV SCH ×6 (07:07→22:16)
[2017-01-02] MEDS ORDERED: VANCOMYCIN HCL LEVEL XX ONE (07:30)
--- NOTE | 2017-01-02 07:35 | PN ---
Subjective - Date and Time Seen Date: 01/02/17 Time: 07:30 Subjective Narrative: patient seen today sitting up in chair no distress, pt denies calf pain, fever, chills, palpitation. Anticipate further amputation or washing of wound with dr Quinn. Objective - Review of Systems Generalized/Overall Review: Reports: No Symptoms Reported EENTM: Reports: No Symptoms Reported Respiratory: Reports: No Symptoms Reported Cardiac: Reports: No Symptoms Reported Abdominal: Reports: No Symptoms Reported Genitourinary Symptoms: Reports: No Symptoms Reported Musculoskeletal Complaints: Reports: Other - Foot pain post amputation Neurological: Reports: No Symptoms Reported Skin: Reports: No Symptoms Reported Endocrine: Reports: No Symptoms Reported - Vitals Vitals: Last Vital Signs Temp 37 C 01/02/17 06:42 Pulse 82 01/02/17 06:42 Resp 20 01/02/17 06:42 BP 148/85 01/02/17 06:42 Pulse Ox 96 01/02/17 06:42 - Abnormal Lab Findings Abnormal Lab Findings: Abnormal Lab Results 01/01/17 01/01/17 01/02/17 Range/Units 05:55 12:47 05:20 RBC (4.7-6.0) M/mm3 Hgb 9.0 L (13.5-18.0) gm/dL Hct 28.3 L (42.0-52.0) % RDW (11.5-14.0) % Immature Gran % (Auto) (0.001-0.429) % Immature Gran # (Auto) (0.000-0.0310) K/mm3 Lymphocytes % (20-51) % Monocytes % (0.0-9) % Neutrophils # (1.3-6.0) K/mm3 Lymphocytes # (1.5-3.5) k/mm3 PT 21.6 H (9.0-11.0) Seconds INR (Anticoag Therapy) 2.14 H (0.90-1.10) INR Potassium (3.4-4.6) mmol/L BUN (6-23) mg/dL Est GFR (Non-Af Amer) (60-130) mL/min Random Glucose (70-110) mg/dL Hemoglobin A1c (4.00-6.0) % Crossmatch See Detail 01/02/17 01/02/17 01/02/17 Range/Units 05:20 05:20 05:20 RBC 3.01 L (4.7-6.0) M/mm3 Hgb 8.6 L (13.5-18.0) gm/dL Hct 26.5 L (42.0-52.0) % RDW 14.6 H (11.5-14.0) % Immature Gran % (Auto) 1.40 H (0.001-0.429) % Immature Gran # (Auto) 0.12 H (0.000-0.0310) K/mm3 Lymphocytes % 12.7 L (20-51) % Monocytes % 9.1 H (0.0-9) % Neutrophils # 6.5 H (1.3-6.0) K/mm3 Lymphocytes # 1.1 L (1.5-3.5) k/mm3 PT (9.0-11.0) Seconds INR (Anticoag Therapy) (0.90-1.10) INR Potassium 4.9 H (3.4-4.6) mmol/L BUN 27 H (6-23) mg/dL Est GFR (Non-Af Amer) 56 L (60-130) mL/min Random Glucose 119 H D (70-110) mg/dL Hemoglobin A1c 8.7 H (4.00-6.0) % Crossmatch - Exam Constitutional: Present: Alert, Oriented x3, Cooperative, No distress ENT Exam: Present: normal ENT inspection Neck: Present: full range of motion Respiratory: Present: chest non-tender, no respiratory distress, no accessory muscle use, rhonchi Cardiovascular/Chest: Present: normal peripheral pulses, regular rate, rhythm, no chest tenderness, no edema Abdomen: Present: Normal bowel sounds, soft, nontender, nondistended Extremity: Present: no calf tenderness, normal capillary refill, other - Left foot transmetatarsal amputation Neurologic: Present: oriented x 3 Appearance: Present: appropriate appearance Eye contact: Present: cooperative Thoughts: Present: normal thought pattern Assessment/Plan Plan Narrative: Gangrene foot seen on X-Ray gas gangrene Pt report necrotic tissue to left foot 2nd toe 12/30/16 S/P Incision and drainage left foot Continue with zosyn 12/30/16 S/P Transmetatarsal left foot amputation A-fib INR 4.25 ---->2.14 Continue with Home meds Coumadin was resumed, pharm to dose Anemia on adm hgb/Hct---->8.7/26.8 01/01/17 S/P 1UPRBC 01/02/17---> Hgb/Hct 8.6/26.5 Continue to monitor cbc Diabetes type I 01/02/17 BG --->116 Accu-check AC+HS and continue with home dose insulin Acute on Chronic renal failure- On adm Bun/Cre 54/3.05-----> Bun/cre 27/1.35 Continue with IVF Monitor bmp Bandemia -likely due to foot infection On adm band 8 since been resolved Blood culture both bottles growing staph Continue with IVF and antbx Code status: Full GI ppx:pepcid VTE ppx:therapeutic Coumadin Time 15 minutes case discussed with Dr piña - Problems/Diagnosis (1) Gangrene of foot Problem: Acute (2) Hyperglycemia due to type 1 diabetes mellitus Problem: Chronic (3) Anemia Problem: Chronic Qualifiers: Anemia type: unspecified type Qualified Code(s): D64.9 - Anemia, unspecified (4) PAF (paroxysmal atrial fibrillation) Problem: Chronic (5) Bandemia Problem: Resolved (6) CKD (chronic kidney disease) Problem: Chronic Qualifiers: Chronic kidney disease stage: stage 3 (moderate) Qualified Code(s): N18.3 - Chronic kidney disease, stage 3 (moderate)
[2017-01-02] MEDS: MULTIVITAMIN/IRON/FOLIC ACID 1 TAB TABLET PO SCH (08:38)
[2017-01-02] MEDS: ESCITALOPRAM OXALATE 10 MG TAB PO SCH (08:38)
[2017-01-02] MEDS: LOSARTAN POTASSIUM 50 MG TABLET PO SCH (08:38)
[2017-01-02] MEDS: FERROUS SULFATE 325 MG TABLET PO SCH ×3 (08:38→17:07)
[2017-01-02] MEDS: POLYETHYLENE GLYCOL 3350 119 GM BTL PO SCH (08:38)
[2017-01-02] MEDS: OMEGA-3 FATTY ACIDS 1 CAP CAPSULE PO SCH (08:39)
[2017-01-02] MEDS: CHOLECALCIFEROL 1,000 UNIT CAPSULE PO SCH (08:39)
[2017-01-02] MEDS: NORMAL SALINE 1,000 ML IV PRN (14:49)
[2017-01-02] MEDS: WARFARIN SODIUM 5 MG TABLET PO SCH (17:07)
[2017-01-02] MEDS: INSULIN GLARGINE,HUM.REC.ANLOG 100 UNITS/ML VIAL SC SCH (20:28)
[2017-01-03] MEDS ORDERED: DEXTROSE 50%-WATER 50 ML SYRG ONE (04:38)
[2017-01-03] MEDS ORDERED: DEXTROSE 50%-WATER 50 ML SYRG IV ONE ×2 (04:39→04:40)
--- NOTE | 2017-01-03 05:24 | PN ---
Subjective - Date and Time Seen Date: 01/03/17 Time: 05:12 Subjective Narrative: Patient seen today AOX3 no acute distress, per nurse pt had blood glucose 59mg/ dl with reports of shakiness/ Dextrose amp given prior to seeing pt. He denies diaphoresis, fatigue,nausea, vomiting, calf pain, chest pain or shortness of breath. he is POD #4 metatarsal left foot amputation. pt anticipating further amputation/ wound washing on Wednesday with Dr Quinn. Plan of care discussed with pt he verbalized understanding and agrees. Objective - Review of Systems Generalized/Overall Review: Reports: No Symptoms Reported EENTM: Reports: No Symptoms Reported Respiratory: Reports: No Symptoms Reported Cardiac: Reports: No Symptoms Reported Abdominal: Reports: No Symptoms Reported Genitourinary Symptoms: Reports: No Symptoms Reported Musculoskeletal Complaints: Reports: No Symptoms Reported Neurological: Reports: No Symptoms Reported Skin: Reports: No Symptoms Reported - Vitals Vitals: Last Vital Signs Temp 37.0 C 01/03/17 02:50 Pulse 79 01/03/17 02:50 Resp 18 01/03/17 02:50 BP 155/75 01/03/17 02:50 Pulse Ox 96 01/03/17 02:50 - Abnormal Lab Findings Abnormal Lab Findings: Abnormal Lab Results 01/02/17 01/02/17 01/02/17 Range/Units 05:20 05:20 05:20 RBC 3.01 L (4.7-6.0) M/mm3 Hgb 8.6 L (13.5-18.0) gm/dL Hct 26.5 L (42.0-52.0) % RDW 14.6 H (11.5-14.0) % Immature Gran % (Auto) 1.40 H (0.001-0.429) % Immature Gran # (Auto) 0.12 H (0.000-0.0310) K/mm3 Lymphocytes % 12.7 L (20-51) % Monocytes % 9.1 H (0.0-9) % Neutrophils # 6.5 H (1.3-6.0) K/mm3 Lymphocytes # 1.1 L (1.5-3.5) k/mm3 PT 21.6 H (9.0-11.0) Seconds INR (Anticoag Therapy) 2.14 H (0.90-1.10) INR Potassium 4.9 H (3.4-4.6) mmol/L BUN 27 H (6-23) mg/dL Est GFR (Non-Af Amer) 56 L (60-130) mL/min Random Glucose 119 H D (70-110) mg/dL Hemoglobin A1c (4.00-6.0) % 01/02/17 Range/Units 05:20 RBC (4.7-6.0) M/mm3 Hgb (13.5-18.0) gm/dL Hct (42.0-52.0) % RDW (11.5-14.0) % Immature Gran % (Auto) (0.001-0.429) % Immature Gran # (Auto) (0.000-0.0310) K/mm3 Lymphocytes % (20-51) % Monocytes % (0.0-9) % Neutrophils # (1.3-6.0) K/mm3 Lymphocytes # (1.5-3.5) k/mm3 PT (9.0-11.0) Seconds INR (Anticoag Therapy) (0.90-1.10) INR Potassium (3.4-4.6) mmol/L BUN (6-23) mg/dL Est GFR (Non-Af Amer) (60-130) mL/min Random Glucose (70-110) mg/dL Hemoglobin A1c 8.7 H (4.00-6.0) % - Exam Constitutional: Present: Alert, Oriented x3, Cooperative, No distress ENT Exam: Present: hearing grossly normal Neck: Present: full range of motion Respiratory: Present: chest non-tender, lungs clear, normal breath sounds, no respiratory distress Cardiovascular/Chest: Present: normal peripheral pulses, regular rate, rhythm, no chest tenderness, no edema Abdomen: Present: Normal bowel sounds, soft, nontender, nondistended, no rebound tenderness /Rectal: Present: Exam deferred Extremity: Present: normal range of motion, no calf tenderness, normal capillary refill - right pedal, lower extremity edema - left leg s/p amputation mid-left foot Skin Exam: Present: normal color, warm/dry, no cyanosis Neurologic: Present: oriented x 3 Appearance: Present: appropriate appearance Eye contact: Present: cooperative Thoughts: Present: normal thought pattern Assessment/Plan Plan Narrative: Hypoglycemia pt reports of shakiness BG 59---> Dextrose 50 Ampule given and repeated BG >200 Accu-check AC+HS and continue with insulin/ oral hypoglycemics as indicated Gangrene foot seen on X-Ray gas gangrene Pt report necrotic tissue to left foot 2nd toe 12/30/16 S/P Incision and drainage left foot Will Continue with zosyn 12/30/16 S/P Transmetatarsal left foot amputation A-fib INR 4.25 ---->2.14---> Continue with Home meds Coumadin was resumed, pharm to dose Anemia on adm hgb/Hct---->8.7/26.8 01/01/17 S/P 1UPRBC 01/02/17---> Hgb/Hct 8.6/26.5 Continue to monitor cbc Acute on Chronic renal failure- On adm Bun/Cre 54/3.05-----> Bun/cre 27/1.35 Continue with IVF Monitor bmp Bandemia -likely due to foot infection On adm band 8 since been resolved Blood culture both bottles growing staph Continue with IVF and antbx Code status: Full GI ppx:pepcid VTE ppx:therapeutic Coumadin Time 15 minutes case discussed with Dr piña - Problems/Diagnosis (1) Gangrene of foot Problem: Acute (2) Hyperglycemia due to type 1 diabetes mellitus Problem: Chronic (3) Anemia Problem: Chronic Qualifiers: Anemia type: unspecified type Qualified Code(s): D64.9 - Anemia, unspecified (4) PAF (paroxysmal atrial fibrillation) Problem: Chronic (5) Bandemia Problem: Resolved (6) CKD (chronic kidney disease) Problem: Chronic Qualifiers: Chronic kidney disease stage: stage 3 (moderate) Qualified Code(s): N18.3 - Chronic kidney disease, stage 3 (moderate)
[2017-01-03 05:54] LABS: Hematocrit 27.9 % (42.0-52.0); Hemoglobin 8.8 gm/dL (13.5-18.0); Mean Corpuscular Hemoglobin 27.8 pg (27-31); Mean Corpuscular Hgb Conc 31.5 g/dl (32-36); Mean Platelet Volume 8.7 fl (6.0-9.5); Neutrophil # 7.4 K/mm3 (1.3-6.0); Neutrophil % 75.4 % (42-75.0); Platelet Count 399 K/mm3 (150-450); Red Blood Count 3.17 M/mm3 (4.7-6.0); Red Cell Distribution Width 14.5 % (11.5-14.0); White Blood Count 9.8 K/mm3 (4.0-10.5)
[2017-01-03 06:02] LABS: Prothrombin Time (Patient) 22.2 Seconds (9.0-11.0)
[2017-01-03 06:03] LABS: Anion Gap 10.9 mmol/L (6.8-13.8); BUN/Creatinine Ratio 19.5 (9.0-21.6); Calcium * 8.3 mg/dL (7.9-10.9); Carbon Dioxide 28.8 mmol/L (24-32.6); Estimated Creat Clear 53.5; Potassium 4.7 mmol/L (3.4-4.6)
[2017-01-03 06:04] LABS: INR 2.2 INR (0.90-1.10)
[2017-01-03] MEDS: NORMAL SALINE 1,000 ML IV PRN (07:02)
[2017-01-03] MEDS: PIPERACILLIN SODIUM/TAZOBACTAM 3.375 GM in DEXTROSE 5 % IN WATER 100 ML IV SCH ×6 (07:38→22:13)
[2017-01-03] MEDS: INSULIN LISPRO 100 UNITS/ML VIAL SC SCH ×4 (07:42→21:07)
[2017-01-03] MEDS: MULTIVITAMIN/IRON/FOLIC ACID 1 TAB TABLET PO SCH (08:21)
[2017-01-03] MEDS: LOSARTAN POTASSIUM 50 MG TABLET PO SCH (08:21)
[2017-01-03] MEDS: ESCITALOPRAM OXALATE 10 MG TAB PO SCH (08:22)
[2017-01-03] MEDS: POLYETHYLENE GLYCOL 3350 119 GM BTL PO SCH (08:22)
[2017-01-03] MEDS: FERROUS SULFATE 325 MG TABLET PO SCH ×3 (08:22→17:33)
[2017-01-03] MEDS: CHOLECALCIFEROL 1,000 UNIT CAPSULE PO SCH (08:23)
[2017-01-03] MEDS: OMEGA-3 FATTY ACIDS 1 CAP CAPSULE PO SCH (08:23)
--- NOTE | 2017-01-03 08:53 | PN ---
Subjective - Date and Time Seen Date: 01/03/17 Time: 08:53 Subjective Narrative: Pt seen at bedside resting. States that his pain is well controlled and is trying not to take many pain medications. Has been placing some weight on his left heel with ambulation with walker assist. Has not applied weight to the amputation site itself. Has questions about when surgery will be scheduled if needed. Objective - Review of Systems Neurological: Reports: Numbness Skin: Reports: Other - ulceration left foot - Vitals Vitals: Last Vital Signs Temp 36.6 C 01/03/17 07:05 Pulse 72 01/03/17 08:21 Resp 22 H 01/03/17 07:05 BP 158/66 01/03/17 08:21 Pulse Ox 95 01/03/17 07:05 - Abnormal Lab Findings Abnormal Lab Findings: Abnormal Lab Results 01/03/17 01/03/17 01/03/17 Range/Units 05:50 05:50 05:50 RBC 3.17 L (4.7-6.0) M/mm3 Hgb 8.8 L (13.5-18.0) gm/dL Hct 27.9 L (42.0-52.0) % MCHC 31.5 L (32-36) g/dl RDW 14.5 H (11.5-14.0) % Immature Gran % (Auto) 1.40 H (0.001-0.429) % Immature Gran # (Auto) 0.14 H (0.000-0.0310) K/mm3 Neutrophils % 75.4 H (42-75.0) % Lymphocytes % 12.8 L (20-51) % Neutrophils # 7.4 H (1.3-6.0) K/mm3 Lymphocytes # 1.3 L (1.5-3.5) k/mm3 PT 22.2 H (9.0-11.0) Seconds INR (Anticoag Therapy) 2.20 H (0.90-1.10) INR Potassium 4.7 H (3.4-4.6) mmol/L BUN 29 H (6-23) mg/dL Creatinine 1.49 H (0.4-1.4) mg/dL Est GFR (Non-Af Amer) 50 L (60-130) mL/min Random Glucose 133 H (70-110) mg/dL - Exam Constitutional: Present: Alert, Oriented x3, Cooperative Skin Exam: Present: other - Dressing to left foot CDI with moderate bloody drainage following surgery. Incision to TMA site left foot remains loosely approximated with sutures intact. Packing present, upon removal bloody drainage only. Plantar medial flap with good demarcation of area of necrosis, will need excision. Remaining tissues pink, intact. Plantar foot ulceration continues to decrease in size. Neurologic: Present: sensory deficit Appearance: Present: appropriate appearance Assessment/Plan - Problems/Diagnosis (1) Gangrene of foot Problem: Acute Narrative: Amputation site re-packed with 1/2" Iodoform packing gauze. New DSD applied. Keep CDI. Discussed further surgical care to include repeat surgical debridement, excision of area of necrosis, possible delayed primary closure. Discussed possibility of application of wound vac if unable to complete primary closure of the surgical site. Discussed risks vs benefits of surgery in detail. No guarantees given or implied. Pt may still require further surgery in the future. Pt is in agreement with this plan. Will schedule for early this week, pending open time in OR. Will place orders accordingly after discussing with the OR. Continue IV ABX.
[2017-01-03] MEDS: ALBUTEROL SULFATE/IPRATROPIUM 3 ML NEBU IH PRN (09:20)
[2017-01-03] MEDS: WARFARIN SODIUM 7.5 MG TABLET PO SCH (17:33)
[2017-01-03] MEDS: INSULIN GLARGINE,HUM.REC.ANLOG 100 UNITS/ML VIAL SC SCH (21:09)
[2017-01-04] MEDS: NORMAL SALINE 1,000 ML IV PRN (00:07)
[2017-01-04] MEDS: ALBUTEROL SULFATE/IPRATROPIUM 3 ML NEBU IH PRN ×2 (02:39→13:11)
[2017-01-04 07:16] LABS: Prothrombin Time (Patient) 22.3 Seconds (9.0-11.0)
[2017-01-04 07:22] LABS: INR 2.21 INR (0.90-1.10)
[2017-01-04] MEDS: INSULIN LISPRO 100 UNITS/ML VIAL SC SCH ×4 (07:45→21:34)
[2017-01-04] MEDS: PIPERACILLIN SODIUM/TAZOBACTAM 3.375 GM in DEXTROSE 5 % IN WATER 100 ML IV SCH ×2 (07:46)
--- NOTE | 2017-01-04 08:35 | PN ---
Subjective - Date and Time Seen Date: 01/04/17 Time: 08:31 Subjective Narrative: Working with PT . ambulaitng with walker. afebrile. possible trip to the OR this week. no murmur. Objective - Review of Systems Generalized/Overall Review: Reports: Weakness. Denies: Chills, Fever EENTM: Reports: No Symptoms Reported Respiratory: Denies: Cough, Shortness of Breath Cardiac: Denies: Chest Pain, Edema, Palpitations Abdominal: Denies: Nausea, Vomiting Genitourinary Symptoms: Denies: Urgency, Frequency Musculoskeletal Complaints: Reports: Joint Pain - Vitals Vitals: Last Vital Signs Temp 36.9 C 01/04/17 06:29 Pulse 68 01/04/17 06:29 Resp 18 01/04/17 06:29 BP 157/74 01/04/17 06:29 Pulse Ox 97 01/04/17 06:29 - Abnormal Lab Findings Abnormal Lab Findings: Abnormal Lab Results 01/04/17 Range/Units 07:03 PT 22.3 H (9.0-11.0) Seconds INR (Anticoag Therapy) 2.21 H (0.90-1.10) INR - Exam Constitutional: Present: Alert, Oriented x3 ENT Exam: Present: hearing grossly normal Neck: Present: supple Respiratory: Present: normal breath sounds, No rales, No wheezing Cardiovascular/Chest: Present: regular rate, rhythm, no JVD, no murmur Abdomen: Present: Normal bowel sounds, soft, nontender, nondistended Extremity: Present: no calf tenderness, pedal edema Assessment/Plan - Problems/Diagnosis (1) Gangrene of foot Problem: Acute Narrative: s/p TMA. Afebrile . Day #6 of IV antibiotics. (2) Charcot foot due to diabetes mellitus Problem: Acute Narrative: walking with walker and working with PT. (3) Diabetes mellitus Problem: Acute Qualifiers: Diabetes mellitus type: type 2 Diabetes mellitus complication status: with kidney complications Diabetes mellitus complication detail: with chronic kidney disease Diabetes mellitus mcc insulin use: with mcc use Chronic kidney disease stage: stage 3 (moderate) Qualified Code(s): E11.22 - Type 2 diabetes mellitus with diabetic chronic kidney disease; N18.3 - Chronic kidney disease, stage 3 (moderate); N18.3 - Chronic kidney disease, stage 3 ( moderate); Z79.4 - custodial (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; Z79.4 - long term care phlebotomist ( 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; Z79.4 - long term care phlebotomist (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; Z79.4 - custodial (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 (4) Leukocytosis Problem: Resolved (5) CKD (chronic kidney disease) Problem: Chronic Qualifiers: Chronic kidney disease stage: stage 3 (moderate) Qualified Code(s): N18.3 - Chronic kidney disease, stage 3 (moderate)
[2017-01-04] MEDS: OMEGA-3 FATTY ACIDS 1 CAP CAPSULE PO SCH (09:22)
[2017-01-04] MEDS: MULTIVITAMIN/IRON/FOLIC ACID 1 TAB TABLET PO SCH (09:22)
[2017-01-04] MEDS: POLYETHYLENE GLYCOL 3350 119 GM BTL PO SCH (09:22)
[2017-01-04] MEDS: ESCITALOPRAM OXALATE 10 MG TAB PO SCH (09:22)
[2017-01-04] MEDS: FERROUS SULFATE 325 MG TABLET PO SCH ×3 (09:22→17:33)
[2017-01-04] MEDS: CHOLECALCIFEROL 1,000 UNIT CAPSULE PO SCH (09:22)
[2017-01-04] MEDS: LOSARTAN POTASSIUM 50 MG TABLET PO SCH (09:22)
[2017-01-04] MEDS: ceFAZolin SODIUM 2 GM in DEXTROSE 5 % IN WATER 50 ML IV SCH ×4 (14:50→21:25)
[2017-01-04] MEDS: WARFARIN SODIUM 5 MG TABLET PO SCH (17:33)
[2017-01-04] MEDS: INSULIN GLARGINE,HUM.REC.ANLOG 100 UNITS/ML VIAL SC SCH (21:34)
[2017-01-05] MEDS: INSULIN LISPRO 100 UNITS/ML VIAL SC SCH ×5 (02:58→20:06)
[2017-01-05 06:11] LABS: Prothrombin Time (Patient) 22.8 Seconds (9.0-11.0)
[2017-01-05 06:12] LABS: INR 2.26 INR (0.90-1.10)
[2017-01-05] MEDS: ceFAZolin SODIUM 2 GM in DEXTROSE 5 % IN WATER 50 ML IV SCH ×6 (06:45→22:51)
[2017-01-05] MEDS: POLYETHYLENE GLYCOL 3350 119 GM BTL PO SCH (09:03)
[2017-01-05] MEDS: MULTIVITAMIN/IRON/FOLIC ACID 1 TAB TABLET PO SCH (09:03)
[2017-01-05] MEDS: ESCITALOPRAM OXALATE 10 MG TAB PO SCH (09:03)
[2017-01-05] MEDS: LOSARTAN POTASSIUM 50 MG TABLET PO SCH (09:03)
[2017-01-05] MEDS: OMEGA-3 FATTY ACIDS 1 CAP CAPSULE PO SCH (09:03)
[2017-01-05] MEDS: FERROUS SULFATE 325 MG TABLET PO SCH ×3 (09:03→17:15)
[2017-01-05] MEDS: CHOLECALCIFEROL 1,000 UNIT CAPSULE PO SCH (09:04)
[2017-01-05] MEDS: ALBUTEROL SULFATE/IPRATROPIUM 3 ML NEBU IH PRN (09:54)
[2017-01-05] MEDS ORDERED: RINGER'S SOLUTION,LACTATED 1,000 ML IV ONE (11:55)
[2017-01-05] MEDS ORDERED: LIDOCAINE HCL 50 ML VIAL IJ ONE (12:15)
[2017-01-05] MEDS ORDERED: BUPIVACAINE HCL 50 ML VIAL IJ ONE (12:15)
--- NOTE | 2017-01-05 14:42 | PN ---
Subjective - Date and Time Seen Date: 01/05/17 Time: 14:36 Subjective Narrative: Just came back from OR for debridement and washing. Objective - Review of Systems Generalized/Overall Review: Denies: Weakness, Chills Respiratory: Denies: Cough, Shortness of Breath Cardiac: Denies: Chest Pain, Palpitations Abdominal: Denies: Nausea, Vomiting Genitourinary Symptoms: Denies: Urgency, Frequency Musculoskeletal Complaints: Reports: Joint Pain - Vitals Vitals: Last Vital Signs Temp 36.4 C L 01/05/17 14:23 Pulse 68 01/05/17 14:23 Resp 18 01/05/17 14:23 BP 117/67 01/05/17 14:23 Pulse Ox 97 01/05/17 14:23 - Abnormal Lab Findings Abnormal Lab Findings: Abnormal Lab Results 01/01/17 01/05/17 Range/Units 05:55 05:56 PT 22.8 H (9.0-11.0) Seconds INR (Anticoag Therapy) 2.26 H (0.90-1.10) INR Crossmatch See Detail - Exam Constitutional: Present: Alert, Oriented x3, Cooperative ENT Exam: Present: hearing grossly normal Neck: Present: supple Respiratory: Present: normal breath sounds, No rales, No wheezing Cardiovascular/Chest: Present: regular rate, rhythm, no JVD, no murmur Abdomen: Present: Normal bowel sounds, soft, nontender, nondistended Extremity: Present: no calf tenderness, other - left foot warpped in FLIP bandage Assessment/Plan - Problems/Diagnosis (1) Staphylococcus aureus bacteremia Problem: Acute Narrative: continue with IV antibiotics minimum of 2 weeks. will repeat BC x2. will do Echo. no signs of endocarditis clinically though. (2) Gangrene of foot Problem: Acute Narrative: s/p TMA s/p Debridement and washing. Continue with IV ancef for MSSA. (3) Charcot foot due to diabetes mellitus Problem: Acute (4) Diabetes mellitus Problem: Acute Qualifiers: Diabetes mellitus type: type 2 Diabetes mellitus complication status: with kidney complications Diabetes mellitus complication detail: with chronic kidney disease Diabetes mellitus nursing home insulin use: with nursing home use Chronic kidney disease stage: stage 3 (moderate) Qualified Code(s): E11.22 - Type 2 diabetes mellitus with diabetic chronic kidney disease; N18.3 - Chronic kidney disease, stage 3 (moderate); N18.3 - Chronic kidney disease, stage 3 ( moderate); Z79.4 - termite control representative (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; Z79.4 - alf ( 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; Z79.4 - alf (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; Z79.4 - termite control representative (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 Narrative: will decrease his Accucheck Humalog coverage to moderate fromn high. (5) CKD (chronic kidney disease) Problem: Chronic Qualifiers: Chronic kidney disease stage: stage 3 (moderate) Qualified Code(s): N18.3 - Chronic kidney disease, stage 3 (moderate)
[2017-01-05] MEDS: HYDROcodone/ACETAMINOPHEN 1 EACH TABLET PO PRN (17:15)
[2017-01-05] MEDS: WARFARIN SODIUM 7.5 MG TABLET PO SCH (17:16)
[2017-01-05] MEDS: INSULIN GLARGINE,HUM.REC.ANLOG 100 UNITS/ML VIAL SC SCH (20:05)
[2017-01-06 04:11] LABS: Hematocrit 28.9 % (42.0-52.0); Mean Cell Volume 91.2 fl (78-100); Mean Corpuscular Hemoglobin 28.4 pg (27-31); Mean Corpuscular Hgb Conc 31.1 g/dl (32-36); Mean Platelet Volume 8.6 fl (6.0-9.5); Neutrophil # 9.7 K/mm3 (1.3-6.0); Neutrophil % 79.7 % (42-75.0); Platelet Count 533 K/mm3 (150-450); Red Blood Count 3.17 M/mm3 (4.7-6.0); Red Cell Distribution Width 14.3 % (11.5-14.0); White Blood Count 12.1 K/mm3 (4.0-10.5)
[2017-01-06 04:17] LABS: Prothrombin Time (Patient) 23.7 Seconds (9.0-11.0)
[2017-01-06 04:19] LABS: Anion Gap 9.5 mmol/L (6.8-13.8); BUN/Creatinine Ratio 27.5 (9.0-21.6); CRP 5.5 mg/dL (0.0-0.9); Calcium * 8.4 mg/dL (7.9-10.9); Carbon Dioxide 30.9 mmol/L (24-32.6); Estimated Creat Clear 60.9; INR 2.35 INR (0.90-1.10); Potassium 5.4 mmol/L (3.4-4.6)
[2017-01-06] MEDS: ceFAZolin SODIUM 2 GM in DEXTROSE 5 % IN WATER 50 ML IV SCH ×6 (05:02→21:24)
[2017-01-06] MEDS: INSULIN LISPRO 100 UNITS/ML VIAL SC SCH ×4 (06:56→20:29)
[2017-01-06] MEDS: HYDROcodone/ACETAMINOPHEN 1 EACH TABLET PO PRN (06:56)
--- NOTE | 2017-01-06 08:00 | PN ---
Subjective - Date and Time Seen Date: 01/06/17 Time: 07:54 Subjective Narrative: S/P Debridement and washing. More perky this morning. Objective - Review of Systems Generalized/Overall Review: Reports: Weakness. Denies: Chills, Fever Respiratory: Denies: Cough, Shortness of Breath Cardiac: Denies: Chest Pain, Palpitations Abdominal: Denies: Nausea, Vomiting Genitourinary Symptoms: Denies: Urgency, Frequency Musculoskeletal Complaints: Reports: Joint Pain - Vitals Vitals: Last Vital Signs Temp 37.5 C 01/06/17 07:07 Pulse 73 01/06/17 07:07 Resp 18 01/06/17 07:07 BP 132/68 01/06/17 07:07 Pulse Ox 96 01/06/17 07:07 - Abnormal Lab Findings Abnormal Lab Findings: Abnormal Lab Results 01/06/17 01/06/17 01/06/17 Range/Units 04:07 04:07 04:07 WBC 12.1 H D (4.0-10.5) K/mm3 RBC 3.17 L (4.7-6.0) M/mm3 Hgb 9.0 L (13.5-18.0) gm/dL Hct 28.9 L (42.0-52.0) % MCHC 31.1 L (32-36) g/dl RDW 14.3 H (11.5-14.0) % Plt Count 533 H (150-450) K/mm3 Immature Gran % (Auto) 1.60 H (0.001-0.429) % Immature Gran # (Auto) 0.19 H (0.000-0.0310) K/mm3 Neutrophils % 79.7 H (42-75.0) % Lymphocytes % 8.9 L (20-51) % Neutrophils # 9.7 H (1.3-6.0) K/mm3 Lymphocytes # 1.1 L (1.5-3.5) k/mm3 ESR 120 H (0-10) mm/hr PT 23.7 H (9.0-11.0) Seconds INR (Anticoag Therapy) 2.35 H (0.90-1.10) INR Potassium (3.4-4.6) mmol/L BUN (6-23) mg/dL Est GFR (Non-Af Amer) (60-130) mL/min BUN/Creatinine Ratio (9.0-21.6) Random Glucose (70-110) mg/dL C-Reactive Prot, Quant (0.0-0.9) mg/dL 01/06/17 Range/Units 04:07 WBC (4.0-10.5) K/mm3 RBC (4.7-6.0) M/mm3 Hgb (13.5-18.0) gm/dL Hct (42.0-52.0) % MCHC (32-36) g/dl RDW (11.5-14.0) % Plt Count (150-450) K/mm3 Immature Gran % (Auto) (0.001-0.429) % Immature Gran # (Auto) (0.000-0.0310) K/mm3 Neutrophils % (42-75.0) % Lymphocytes % (20-51) % Neutrophils # (1.3-6.0) K/mm3 Lymphocytes # (1.5-3.5) k/mm3 ESR (0-10) mm/hr PT (9.0-11.0) Seconds INR (Anticoag Therapy) (0.90-1.10) INR Potassium 5.4 H (3.4-4.6) mmol/L BUN 36 H (6-23) mg/dL Est GFR (Non-Af Amer) 58 L (60-130) mL/min BUN/Creatinine Ratio 27.5 H (9.0-21.6) Random Glucose 50 L D (70-110) mg/dL C-Reactive Prot, Quant 5.5 H (0.0-0.9) mg/dL - Exam Constitutional: Present: Alert, Oriented x3, Cooperative ENT Exam: Present: hearing grossly normal Neck: Present: supple Respiratory: Present: normal breath sounds, No rales, No wheezing Cardiovascular/Chest: Present: regular rate, rhythm, no JVD, no murmur Abdomen: Present: Normal bowel sounds, soft, nontender, nondistended Extremity: Present: no calf tenderness, other - left foot bandaged Assessment/Plan - Problems/Diagnosis (1) Staphylococcus aureus bacteremia Problem: Acute Narrative: continue with IV antibiotics. no evidence of endocarditis. for Echo today. (2) Gangrene of foot Problem: Acute Narrative: s/p TMA. ESR/CRP increased but better than on admission. Leukocytosis like reactive to surgery yesterday. 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 will reduce lantus to 15 unit from 25. (5) CKD (chronic kidney disease) Problem: Chronic Qualifiers: Chronic kidney disease stage: stage 3 (moderate) Qualified Code(s): N18.3 - Chronic kidney disease, stage 3 (moderate)
[2017-01-06] MEDS ORDERED: HYDROcodone/ACETAMINOPHEN 1 EACH TABLET PO PRN (08:31)
[2017-01-06] MEDS: ESCITALOPRAM OXALATE 10 MG TAB PO SCH (08:47)
[2017-01-06] MEDS: MULTIVITAMIN/IRON/FOLIC ACID 1 TAB TABLET PO SCH (08:47)
[2017-01-06] MEDS: FERROUS SULFATE 325 MG TABLET PO SCH ×3 (08:47→16:52)
[2017-01-06] MEDS: CHOLECALCIFEROL 1,000 UNIT CAPSULE PO SCH (08:47)
[2017-01-06] MEDS: OMEGA-3 FATTY ACIDS 1 CAP CAPSULE PO SCH (08:47)
[2017-01-06] MEDS: LOSARTAN POTASSIUM 50 MG TABLET PO SCH (08:48)
[2017-01-06] MEDS: POLYETHYLENE GLYCOL 3350 119 GM BTL PO SCH (08:50)
--- NOTE | 2017-01-06 13:45 | PN ---
Subjective - Date and Time Seen Date: 01/06/17 Time: 13:30 Subjective Narrative: Pt seen at bedside resting. States that his pain is well controlled and is trying not to take many pain medications. Has been elevating his foot as much as possible. Does apply a small amount of weight to his left heel when ambulating, no weight directly on surgical site. Objective - Review of Systems Neurological: Reports: Numbness - Vitals Vitals: Last Vital Signs Temp 36.4 C L 01/06/17 11:19 Pulse 70 01/06/17 11:19 Resp 19 01/06/17 11:19 BP 145/69 01/06/17 11:19 Pulse Ox 96 01/06/17 11:19 - Abnormal Lab Findings Abnormal Lab Findings: Abnormal Lab Results 01/06/17 01/06/17 01/06/17 Range/Units 04:07 04:07 04:07 WBC 12.1 H D (4.0-10.5) K/mm3 RBC 3.17 L (4.7-6.0) M/mm3 Hgb 9.0 L (13.5-18.0) gm/dL Hct 28.9 L (42.0-52.0) % MCHC 31.1 L (32-36) g/dl RDW 14.3 H (11.5-14.0) % Plt Count 533 H (150-450) K/mm3 Immature Gran % (Auto) 1.60 H (0.001-0.429) % Immature Gran # (Auto) 0.19 H (0.000-0.0310) K/mm3 Neutrophils % 79.7 H (42-75.0) % Lymphocytes % 8.9 L (20-51) % Neutrophils # 9.7 H (1.3-6.0) K/mm3 Lymphocytes # 1.1 L (1.5-3.5) k/mm3 ESR 120 H (0-10) mm/hr PT 23.7 H (9.0-11.0) Seconds INR (Anticoag Therapy) 2.35 H (0.90-1.10) INR Potassium (3.4-4.6) mmol/L BUN (6-23) mg/dL Est GFR (Non-Af Amer) (60-130) mL/min BUN/Creatinine Ratio (9.0-21.6) Random Glucose (70-110) mg/dL C-Reactive Prot, Quant (0.0-0.9) mg/dL 01/06/17 Range/Units 04:07 WBC (4.0-10.5) K/mm3 RBC (4.7-6.0) M/mm3 Hgb (13.5-18.0) gm/dL Hct (42.0-52.0) % MCHC (32-36) g/dl RDW (11.5-14.0) % Plt Count (150-450) K/mm3 Immature Gran % (Auto) (0.001-0.429) % Immature Gran # (Auto) (0.000-0.0310) K/mm3 Neutrophils % (42-75.0) % Lymphocytes % (20-51) % Neutrophils # (1.3-6.0) K/mm3 Lymphocytes # (1.5-3.5) k/mm3 ESR (0-10) mm/hr PT (9.0-11.0) Seconds INR (Anticoag Therapy) (0.90-1.10) INR Potassium 5.4 H (3.4-4.6) mmol/L BUN 36 H (6-23) mg/dL Est GFR (Non-Af Amer) 58 L (60-130) mL/min BUN/Creatinine Ratio 27.5 H (9.0-21.6) Random Glucose 50 L D (70-110) mg/dL C-Reactive Prot, Quant 5.5 H (0.0-0.9) mg/dL - Exam Constitutional: Present: Alert, Oriented x3, Cooperative, No distress Skin Exam: Present: other - Dressing to left foot CDI with moderate bloody drainage following surgery. Incision to TMA site remains well approximated with sutures intact. Packing in place at central-medial aspect of incision, upon removal reveals bloody drainage only. Tissues red, granular. Erythema resolved. Neurologic: Present: sensory deficit Appearance: Present: appropriate appearance Assessment/Plan - Problems/Diagnosis (1) Gangrene of foot Problem: Acute Narrative: Patient has undergone TMA as well as repeat debridement of the surgical site with attempted delayed primary closure. There is one area of the incision that was not able to be closed and 1/2" Iodoform packing was replaced today. Incision re-dressed with adaptic, dry gauze, ABD, kerlix, cale, and FLIP bandage. Keep CDI. May apply minimal weight only to heel on left foot. Keep elevated at rest. Pt to be fitted for a surgical boot to assist offloading with walking. To continue walker assist. Discussed placement of wound VAC to open area of incision. Will plan placement in wound center after discharge. Anticipate d/c home by end of week if patient continues to progress.
[2017-01-06] MEDS: ALBUTEROL SULFATE/IPRATROPIUM 3 ML NEBU IH PRN (14:58)
[2017-01-06] MEDS: WARFARIN SODIUM 5 MG TABLET PO SCH (16:52)
[2017-01-06] MEDS: INSULIN GLARGINE,HUM.REC.ANLOG 100 UNITS/ML VIAL SC SCH (20:29)
[2017-01-07] MEDS: ceFAZolin SODIUM 2 GM in DEXTROSE 5 % IN WATER 50 ML IV SCH ×6 (05:19→21:02)
[2017-01-07 05:42] LABS: Prothrombin Time (Patient) 22.1 Seconds (9.0-11.0)
[2017-01-07 06:01] LABS: INR 2.19 INR (0.90-1.10)
[2017-01-07] MEDS: INSULIN LISPRO 100 UNITS/ML VIAL SC SCH ×4 (07:24→20:50)
--- NOTE | 2017-01-07 07:53 | PN ---
Progess Note - Interim Narrative: 01/07/17 07:51 Will need total of 14 days of IV antibiotics for his Staph Bacteremia. He is day # 9 now. Consider SNF for IV antibiotics vs [facility]. if Podiatry feels there is OM, will longer IV antibiotic coverage than 2 weeks.
[2017-01-07] MEDS: POLYETHYLENE GLYCOL 3350 119 GM BTL PO SCH (08:56)
[2017-01-07] MEDS: MULTIVITAMIN/IRON/FOLIC ACID 1 TAB TABLET PO SCH (08:57)
[2017-01-07] MEDS: LOSARTAN POTASSIUM 50 MG TABLET PO SCH (08:57)
[2017-01-07] MEDS: OMEGA-3 FATTY ACIDS 1 CAP CAPSULE PO SCH (08:58)
[2017-01-07] MEDS: ESCITALOPRAM OXALATE 10 MG TAB PO SCH (08:58)
[2017-01-07] MEDS: CHOLECALCIFEROL 1,000 UNIT CAPSULE PO SCH (08:58)
[2017-01-07] MEDS: FERROUS SULFATE 325 MG TABLET PO SCH ×3 (08:59→16:42)
--- NOTE | 2017-01-07 16:05 | PN ---
Subjective - Date and Time Seen Date: 01/07/17 Time: 15:28 Subjective Narrative: Patient feels better. Good appetite. Afebrile. Day #9 of IV antibiotics. Objective - Review of Systems Generalized/Overall Review: Reports: Weakness. Denies: Chills, Fever Respiratory: Denies: Cough, Shortness of Breath Cardiac: Denies: Chest Pain, Palpitations Abdominal: Denies: Nausea, Vomiting Genitourinary Symptoms: Denies: Urgency, Frequency Musculoskeletal Complaints: Reports: Joint Pain - Vitals Vitals: Last Vital Signs Temp 36.8 C 01/07/17 10:55 Pulse 88 01/07/17 10:55 Resp 18 01/07/17 10:55 BP 142/86 01/07/17 10:55 Pulse Ox 96 01/07/17 10:55 - Abnormal Lab Findings Abnormal Lab Findings: Abnormal Lab Results 01/07/17 Range/Units 05:34 PT 22.1 H (9.0-11.0) Seconds INR (Anticoag Therapy) 2.19 H (0.90-1.10) INR - Exam Constitutional: Present: Alert, Oriented x3, Cooperative ENT Exam: Present: hearing grossly normal Neck: Present: supple Respiratory: Present: normal breath sounds, No rales, No wheezing Cardiovascular/Chest: Present: regular rate, rhythm, no JVD, no murmur Extremity: Present: calf tenderness, other - left foot wrapped in glen bandage and kerlex- dry Assessment/Plan - Problems/Diagnosis (1) Staphylococcus aureus bacteremia Problem: Acute Narrative: Will need IV antibiotics for a total of 14 days at least for his staph bacteremia. his repeat BC is showing NG after 24 hours. ADDENDUM: Discussed with Dr. Quinn . She plans to do wound vac next week and continue with oral antibiotics when he is done with his IV antibiotics. Will discharge patient on 2 grams of IV ancef BID x 5 more days starting tomorrow. will defer from getting a PICC line as it is only [address] Quinn then will start him on oral antibiotics after that. (2) Gangrene of foot Problem: Acute Narrative: s/p TMA. on IV antibiotics (3) Charcot foot due to diabetes mellitus Problem: Acute (4) Diabetes mellitus Problem: Acute Qualifiers: Diabetes mellitus type: type 2 Diabetes mellitus complication status: with kidney complications Diabetes mellitus complication detail: with chronic kidney disease Diabetes mellitus mcc insulin use: with mcc use Chronic kidney disease stage: stage 3 (moderate) Qualified Code(s): E11.22 - Type 2 diabetes mellitus with diabetic chronic kidney disease; N18.3 - Chronic kidney disease, stage 3 (moderate); N18.3 - Chronic kidney disease, stage 3 ( moderate); Z79.4 - residential (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; Z79.4 - buttermaker ( 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; Z79.4 - buttermaker (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; Z79.4 - buttermaker (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 Narrative: [facility] has started him on 14 untis of Lantus SQ qd and 4 mg of Humalog TID before each meal with supplemental coverage of 1 unit per every 75 mg/DL after 150 mg/DL due to his labile DM and his episodes of hypoglycemia. (5) CKD (chronic kidney disease) Problem: Chronic Qualifiers: Chronic kidney disease stage: stage 3 (moderate) Qualified Code(s): N18.3 - Chronic kidney disease, stage 3 (moderate)
[2017-01-07] MEDS: WARFARIN SODIUM 7.5 MG TABLET PO SCH (16:42)
[2017-01-07] MEDS: INSULIN GLARGINE,HUM.REC.ANLOG 100 UNITS/ML VIAL SC SCH (20:53)
[2017-01-08] MEDS: ceFAZolin SODIUM 2 GM in DEXTROSE 5 % IN WATER 50 ML IV SCH ×2 (05:09)
--- NOTE | 2017-01-08 05:17 | DS ---
(1) Gangrene of foot Problem: Acute (2) [id number] renal failure Problem: Acute (3) Hyperglycemia due to type 1 diabetes mellitus Problem: Chronic (4) Staphylococcus aureus bacteremia Problem: Acute Description of Stay: Admission HPI. 66 years old white male adm to the hospital with reports of left 2nd toe necrotic, left foot swelling and redness and hyperglycemia. PMH significant for Charcot foot due to diabetes mellitus type I, diabetic neuropathy, chronic renal failure stage III , peripheral arterial disease , hypertension, umbilical hernia, small without obstruction and diabetic ulcer left foot. Pt stated yesterday he noticed his 2nd toe of left foot was marilynn from rubbing against his work booths and blood glucose elevated. Today he was having chills, fever, left foot had been swollen and the toe was black with malodorous. pt stated he was following up with Dr Quinn for plantar ulcer to left foot, thats has been healing well. He is been seen by finish mixer in [place] for uncontrolled diabetes. In ER X-Ray left foot: concerning for gas gangrene, he was initiated on zosyn, vancomycin, blood cultures and wound cultures pending. Beside Incision and drainage of 2nd toe of left foot performed by Dr Quinn. Plan of care discussed with pt he verbalized understanding and agrees. Hospital Course/problems. 1.) Gangrenous LT foot. Mr. Roa was admitted inpatient on 12/30/16 -01/08/17. On presentation, he was found to have redness, swelling and gangrenous changes to the LT foot. The LT foot X-ray obtained had concerns for Gas gangrene. He had elevated ESR of> 120 and CRP of 49. He was started on Vancomycin and Zosyn. Podiatry consulted by the ERP. Pt was evaluated by Dr. Quinn who performed bedside I/D on the gangrenous areas of the LT foot on 12/30 and wound cultures were collected which later showed (the growth of Staphylococcus species- Vanco was discontinued and he remained on Zosyn). It was determined that the pt needed more extensive surgery and he underwent transmetatarsal amputation later on . Following the amputation, it was determined that he need further surgery for complete closure of the surgical site. On 01/05, he was taken back to OR for repeat excisional debridement of the LT foot with delayed primary closure of the surgical site. The closure of the surgical site was unable to be done and it was determined by Dr. Quinn that he would need application of the wound vac at a later date and, to allow wound/surgical site to heal in the meantime. Due to blood cultures that showed growth of Staph. Species also, pt needed a total of 14 days of IV Antibiotics. He is on Day # 10 today, and will need additional 5 days of IV Ancef 2 gm q 12 hours from day of discharge. The patient has a follow-up with Dr. Quinn next week on Friday 01/12, and with tentative plans for a wound vac. Dr. Quinn will determine if he needs additional course of oral antibiotics. The pt was instructed to leave the dressing dry and intact until he sees Dr. Quinn, and he is to wear a post op boot on the LT foot with partial weight bearing on heal with a walker. He does not need a central line for the administration of IV antibiotics as there are only 5 days left and if IV site infiltrates, a new site has to be established. Arrangements will be made for pt to receive the Ax administration at the [facility]. 2.) Hyperglycemia due to DM I He presented initially with blood sugar of 400, but he admitted not taking his insulin prior to coming to the hospital. He follows up with Diabetes center at the [facility]. He has known episodes of Hypoglycemia and his insulin was reduced during last visit on 12/01/16 as follows: Lantus 14 units in am, 4 units of Novolog before meals plus sliding scale correction of 1 units for every 75mg/dL greater than 150mg/dL and he is continue monitoring his blood sugars 3-4 times - premeal and at bedtime. He will continue with this treatment plan. 3.) Acute on Chronic Renal Failure. His Kidney function improved following IVF hydration. Laboratory Tests 12/29/16 12/30/16 12/30/16 23:45 02:35 05:40 Creatinine 3.05 H D 3.00 H 2.62 H 12/31/16 01/01/17 01/02/17 05:30 04:55 05:20 Creatinine 1.95 H D 1.53 H D 1.35 01/03/17 01/06/17 05:50 04:07 Creatinine 1.49 H 1.31 4.) Staphylococcus Aureus Bacteremia. Determined to need 14 days of IV antibiotics due to Staph. Bacteremia. Is on Day 10. Will need additional 5 days from today. Procedures Performed: see notes below - Transmetartasal amputation of LT foot, Debridement of LT foot. Discharge Disposition: Home self care Disposition: Home self-care Condition: Good Discharge Activity: Partial-Weight bearing Discharge Diet: Consistent carbs Referrals: Maritza Carter MD [Primary Care Provider] - Problem Oriented Discharge Instructions to Patient/Family: Insulin Treatment for Diabetes, Diabetes and Standards of Medical Care, Hyperglycemia, Easy-to- Read, Type 2 Diabetes Mellitus, Adult, [id number], Blood Glucose Monitoring, Adult, Diabetes Mellitus and Food Additional Patient Instructions (free text): Please make TCM appointment at discharge, if applicable. Thank you! Karis @ [phone] Follow-up with Dr. Quinn next week on Wednesday. Continue Iv Antibiotics at the [facility] - Ancef 2 gm q 12 h Starting this evening. Prescriptions (Any new or edited meds): ceFAZolin SODIUM [Ancef] 2 gm IV Q8H #10 vial HYDROcodone/ACETAMINOPHEN [Chetek 5-325] 2 each PO Q4H PRN #40 tablet PRN Reason: MODERATE TO SEVERE PAIN Insulin Glargine,Hum.rec.anlog [Lantus] 14 units SC QAM #1 vial Insulin Lispro [Humalog] 4 units SC AC #1 vial Complete Home Medications List: Complete Home Medication List: Albuterol Sulfate [Proair Hfa] 1 - 2 puff IH Q4H PRN #1 inhaler 02/07/16 Acetaminophen [Tylenol] 650 mg PO Q4H PRN #30 tablet 09/18/16 Multivitamin/Iron/Folic Acid [Certagen] 1 tab PO DAILY #7 tablet 09/18/16 Polyethylene Glycol 3350 [Miralax] 17 gm PO DAILY 1 Days btl 09/18/16 Warfarin Sodium [Coumadin] 5 mg PO MoWeFr@1700 #1 tablet 09/18/16 Warfarin Sodium [Coumadin] 7.5 mg PO SuTuThSa@1700 #1 tablet 09/18/16 Albuterol Sulfate/Ipratropium [Duoneb 2.5-0.5MG/3ML Soln] 3 ml IH TID 12/30/16 Cholecalciferol (Vitamin D3) [Vitamin D3] 2,000 unit PO DAILY 12/30/16 Escitalopram Oxalate [Lexapro] 10 mg PO DAILY 12/30/16 Ferrous Sulfate 325 mg PO TID 12/30/16 Losartan Potassium [Cozaar] 50 mg PO DAILY 12/30/16 [place]-3 Fatty Acids/Fish Oil [Fish Oil 1,000 mg Capsule] 1 cap PO DAILY HYDROcodone/ACETAMINOPHEN [Chetek 5-325] 2 each PO Q4H PRN #40 tablet 01/08/17 Insulin Glargine,Hum.rec.anlog [Lantus] 14 units SC QAM #1 vial 01/08/17 Insulin Lispro [Humalog] 4 units SC AC #1 vial 01/08/17 ceFAZolin SODIUM [Ancef] 2 gm IV Q12H #10 ml 01/08/17
[2017-01-08 05:47] LABS: INR 1.79 INR (0.90-1.10)
[2017-01-08 06:14] LABS: Anion Gap 10.5 mmol/L (6.8-13.8); BUN/Creatinine Ratio 36.6 (9.0-21.6); Calcium * 8.8 mg/dL (7.9-10.9); Carbon Dioxide 31.7 mmol/L (24-32.6); Estimated Creat Clear 60.9; Potassium 5.2 mmol/L (3.4-4.6)
[2017-01-08] MEDS: INSULIN LISPRO 100 UNITS/ML VIAL SC SCH ×2 (06:47→11:51)
[2017-01-08] MEDS: POLYETHYLENE GLYCOL 3350 119 GM BTL PO SCH (08:08)
[2017-01-08] MEDS: LOSARTAN POTASSIUM 50 MG TABLET PO SCH (08:09)
[2017-01-08] MEDS: CHOLECALCIFEROL 1,000 UNIT CAPSULE PO SCH (08:09)
[2017-01-08] MEDS: OMEGA-3 FATTY ACIDS 1 CAP CAPSULE PO SCH (08:09)
[2017-01-08] MEDS: MULTIVITAMIN/IRON/FOLIC ACID 1 TAB TABLET PO SCH (08:09)
[2017-01-08] MEDS: FERROUS SULFATE 325 MG TABLET PO SCH (08:09)
[2017-01-08] MEDS: ESCITALOPRAM OXALATE 10 MG TAB PO SCH (08:09)
--- NOTE | 2017-01-08 09:57 | PN ---
Subjective - Date and Time Seen Date: 01/08/17 Subjective Narrative: Pt seen at bedside resting. States that his pain is well controlled. Has not taken any recent pain medications. Continues elevating his foot as much as possible. Does apply a small amount of weight to his left heel when ambulating , no weight directly on surgical site. Objective - Review of Systems Neurological: Reports: Numbness - Vitals Vitals: Last Vital Signs Temp 36.5 C 01/08/17 07:37 Pulse 67 01/08/17 08:09 Resp 14 01/08/17 07:37 BP 134/66 01/08/17 08:09 Pulse Ox 99 01/08/17 07:37 - Abnormal Lab Findings Abnormal Lab Findings: Abnormal Lab Results 01/08/17 01/08/17 Range/Units 05:36 05:57 PT 18.0 H (9.0-11.0) Seconds INR (Anticoag Therapy) 1.79 H (0.90-1.10) INR Potassium 5.2 H (3.4-4.6) mmol/L BUN 48 H (6-23) mg/dL Est GFR (Non-Af Amer) 58 L (60-130) mL/min BUN/Creatinine Ratio 36.6 H (9.0-21.6) Random Glucose 135 H D (70-110) mg/dL - Exam Constitutional: Present: Alert, Oriented x3, Cooperative Skin Exam: Present: other - Dressing to left foot CDI with moderate bloody drainage following surgery. Incision to TMA site remains well approximated with sutures intact. Packing in place at central-medial aspect of incision, upon removal reveals bloody drainage only. Tissues red, granular. Erythema remains resolved. Neurologic: Present: sensory deficit Appearance: Present: appropriate appearance Assessment/Plan - Problems/Diagnosis (1) Gangrene of foot Problem: Acute Narrative: Patient has undergone TMA as well as repeat debridement of the surgical site with attempted delayed primary closure. There is one area of the incision that was not able to be closed and 1/2" Iodoform packing was replaced today. Incision re-dressed with adaptic, dry gauze, ABD, kerlix, cale, and FLIP bandage. Keep CDI. May apply minimal weight only to heel on left foot. Keep elevated at rest. To continue walker assist. Ok for d/c home. Will plan f/u in wound center next Wednesday as scheduled.
[2017-01-08 10:43] VITALS: BP 139/61
[2017-01-08] MEDS ORDERED: WARFARIN SODIUM 7.5 MG TABLET PO SCH (17:00)
[2017-01-09] MEDS ORDERED: WARFARIN SODIUM 5 MG TABLET PO SCH (17:00)
--- NOTE | 2017-01-11 10:11 | ECHO ---
This report is available in the EMR
== END 2017-01-08 13:05 | disposition home or self-care (01) | DRG 240 ==
LOC: ER 23:06 → MS 12-30 01:17
PROVIDERS: ADMIT Nurse Practitioner; ATTEND Internal Medicine
PROC: 0Y6N0ZB Detachment at Left Foot, Partial 2nd Ray, Open Approach (ICD-10-PCS; 2016-12-30)
PROC: 0Y6N0ZC Detachment at Left Foot, Partial 3rd Ray, Open Approach (ICD-10-PCS; 2016-12-30)
PROC: 0Y6N0ZD Detachment at Left Foot, Partial 4th Ray, Open Approach (ICD-10-PCS; 2016-12-30)
PROC: 0Y6N0ZF Detachment at Left Foot, Partial 5th Ray, Open Approach (ICD-10-PCS; 2016-12-30)
PROC: 0Y9N0ZX Drainage of Left Foot, Open Approach, Diagnostic (ICD-10-PCS; 2016-12-30)
PROC: 0Y6N0Z9 Detachment at Left Foot, Partial 1st Ray, Open Approach (ICD-10-PCS; principal; 2016-12-30 13:30)
PROC: 0Y6N0Z9 Detachment at Left Foot, Partial 1st Ray, Open Approach (ICD-10-PCS; 2017-01-05)
PROC: 0Y6N0ZB Detachment at Left Foot, Partial 2nd Ray, Open Approach (ICD-10-PCS; 2017-01-05)
PROC: 0Y6N0ZD Detachment at Left Foot, Partial 4th Ray, Open Approach (ICD-10-PCS; 2017-01-05)
PROC: 0Y6N0ZC Detachment at Left Foot, Partial 3rd Ray, Open Approach (ICD-10-PCS; 2017-01-05)
PROC: 0Y6N0ZF Detachment at Left Foot, Partial 5th Ray, Open Approach (ICD-10-PCS; 2017-01-05)
PROC: B246ZZZ Ultrasonography of Right and Left Heart (ICD-10-PCS; 2017-01-06)
DX: E11.52 Type 2 diabetes mellitus with diabetic peripheral angiopathy with gangrene (principal); I96 Gangrene, not elsewhere classified; A49.01 Methicillin susceptible Staphylococcus aureus infection, unspecified site; I12.9 Hypertensive chronic kidney disease with stage 1 through stage 4 chronic kidney disease, or unspecified chronic kidney disease; E11.22 Type 2 diabetes mellitus with diabetic chronic kidney disease; N18.3 Chronic kidney disease, stage 3 (moderate); I48.0 Paroxysmal atrial fibrillation; E11.610 Type 2 diabetes mellitus with diabetic neuropathic arthropathy; E11.65 Type 2 diabetes mellitus with hyperglycemia; Z79.01 Long term (current) use of anticoagulants; Z79.4 Long term (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

== ENCOUNTER 2017-03-16 01:12 | Emergency (ER) | payer BC, MEDICARE ==
[2017-03-16] MEDS ORDERED: ALBUTEROL SULFATE/IPRATROPIUM 3 ML NEBU IH ONE ×4 (01:15→01:47)
--- NOTE | 2017-03-16 01:46 | ERNOTE ---
Dyspnea - General Presenting Symptoms: shortness of breath Time Seen by Provider: 03/16/17 01:30 Source: patient Exam Limitations: no limitations - Immun/Allergies/Home Medications Immunizations: IMMUNIZATION HX Immunizations Up to Date Yes History of Influenza Vaccine Yes Hx Pneumococcal Vaccination Yes Allergies/Adverse Reactions: Allergies No Known Allergies Allergy (Verified 12/30/16 01:07) Home Medications: HOME MEDICATIONS Albuterol Sulfate [Proair Hfa] 1 - 2 puff IH Q4H PRN #1 inhaler 02/07/16 [Last Taken 09/01/16] Acetaminophen [Tylenol] 650 mg PO Q4H PRN #30 tablet 09/18/16 [Last Taken Unknown] Multivitamin/Iron/Folic Acid [Certagen] 1 tab PO DAILY #7 tablet 09/18/16 [Last Taken Unknown] Polyethylene Glycol 3350 [Miralax] 17 gm PO DAILY 1 Days btl 09/18/16 [Last Taken Unknown] Warfarin Sodium [Coumadin] 5 mg PO MoWeFr@1700 #1 tablet 09/18/16 [Last Taken Unknown] Warfarin Sodium [Coumadin] 7.5 mg PO SuTuThSa@1700 #1 tablet 09/18/16 [Last Taken Unknown] Albuterol Sulfate/Ipratropium [Duoneb 2.5-0.5MG/3ML Soln] 3 ml IH TID 12/30/16 [ Last Taken Unknown] Cholecalciferol (Vitamin D3) [Vitamin D3] 2,000 unit PO DAILY 12/30/16 [Last Taken Unknown] Escitalopram Oxalate [Lexapro] 10 mg PO DAILY 12/30/16 [Last Taken Unknown] Ferrous Sulfate 325 mg PO TID 12/30/16 [Last Taken Unknown] Losartan Potassium [Cozaar] 50 mg PO DAILY 12/30/16 [Last Taken Unknown] [place]-3 Fatty Acids/Fish Oil [Fish Oil 1,000 mg Capsule] 1 cap PO DAILY [Last Taken Unknown] HYDROcodone/ACETAMINOPHEN [[place] 5-325] 2 each PO Q4H PRN #40 tablet 01/08/17 [ Last Taken Unknown] Insulin Glargine,Hum.rec.anlog [Lantus] 14 units SC QAM #1 vial 01/08/17 [Last Taken Unknown] Insulin Lispro [Humalog] 4 units SC AC #1 vial 01/08/17 [Last Taken Unknown] Albuterol Sulfate [Albuterol Sulfate 2.5 MG/0.5ML] 1 vial IH Q4H PRN #30 vial [Last Taken Unknown] - History of Present Illness Narrative: Pt states he has had a cough for about a week. This evening he became short of breath and had increased cough Severity: moderate Initiating event: Reports: upper resp illness Frequency of episodes: Reports: frequent episodes Modifying Factors (Worsens): Reports: coughing Review of Systems - Review of Systems Constitutional: Present: fever. Absent: chills EYE: Present: no symptoms reported ENT: Present: no symptoms reported Respiratory: Present: See HPI Cardiology: Absent: chest pain Gastrointestinal/Abdominal: Absent: nausea, vomiting Genitourinary: Present: no symptoms reported Musculoskeletal: Present: no symptoms reported Skin: Absent: rash Neurological: Present: no symptoms reported Endocrine: Present: no symptoms reported Hematologic/Lymphatic: Present: no symptoms reported Psych: Present: no symptoms reported - Patient's Past Medical History Patient History - Medical: Diabetes Type 1, Renal Disease Patient History - Cardiac/Respiratory: No pertinent hx Patient History - Cancer: No Hx of Cancer Patient History - Surgical Procedures: Total Hip Replacement, Total Hip Replacement, Other Patient History - Other: None - Family History Mother Family History - Medical: , History Unknown Family History - Cardiac/Respiratory: History Unknown Family History - Cancer: Other Father Family History - Medical: , History Unknown Family History - Cardiac/Respiratory: History Unknown Family History - Cancer: Lung Sister Family History - Medical: Family History - Cardiac/Respiratory: History Unknown Family History - Cancer: Other - Social History Living Situations: spouse Abuse History: No History of abuse Psych History: No pertinent hx Smoking Status: Never smoker Have you smoked in the past 12 months: No Do you dip or chew tobacco: No Alcohol Use: none Drug Use: none - Immunizations Immunizations Up to Date: Yes Hx Pneumococcal Vaccination: Yes History of Influenza Vaccine: Yes Physical Exam - Physical Exam General Appearance: Present: wd/wn, alert, mild distress Head Exam: Present: normal inspection, no evidence of injury Ears, Nose, Throat: Present: normal ENT inspection Neck: Present: normal inspection, nontender, supple Respiratory: Present: no respiratory distress, no accessory muscle use, decreased breath sounds, wheezing - bilateral bases Cardiovascular/Chest: Present: regular rate, rhythm, no murmur Gastrointestinal/Abdominal: Present: normal bowel sounds, nontender, nondistended, soft Back Exam: Present: decreased range of motion - increased kyphosis and scoliosis present Extremity Exam: Present: no edema, other - ankle /foot boot on left foot Neurological Exam: Present: alert, oriented, normal mood/affect Skin Exam: Present: normal color, warm/dry Lymphatic Exam: Present: no adenopathy ED Progress - Results and Orders Patient's Lab Results:: I have reviewed the patient's lab results. Results and Orders: Laboratory Tests 03/16/17 03/16/17 01:29 01:50 WBC 6.7 Hgb 10.6 L Hct 33.4 L Plt Count 164 MPV 9.6 H Immature Gran % (Auto) 0.40 Influenza Type A Ag Negative Influenza Type B Ag Negative - Vital Signs Vital Signs: Vital Signs 03/16/17 03/16/17 03/16/17 01:20 01:21 01:35 Temperature 36.8 C Pulse Rate 81 81 83 Respiratory 28 H 28 H Rate Blood Pressure 211/106 O2 Sat by Pulse 83 L 83 L Oximetry - EKG EKG: NSR - with sinus arrhythmia, nonspecific ST T wave changes EKG read: Interp. by me - X-Ray X-Ray #1 X-Ray: chest Interpretation: Interp. by me X-ray Comments: No infiltrate or effusion - Progress/Reassessment Chief Complaint: Dyspnea Progress:: Improved Departure Clinical Impression: Bronchitis - Departure Disposition: Home self-care Condition: Good Instructions: Acute Bronchitis, [id number] Referrals: Maritza Carter MD [Primary Care Provider] - Prescriptions: Albuterol Sulfate [Albuterol Sulfate 2.5 MG/0.5ML] 1 vial IH Q4H PRN #30 vial PRN Reason: COUGHING/WHEEZING
[2017-03-16 01:57] LABS: Hematocrit 33.4 % (42.0-52.0); Hemoglobin 10.6 gm/dL (13.5-18.0); Mean Corpuscular Hemoglobin 28.9 pg (27-31); Mean Corpuscular Hgb Conc 31.7 g/dl (32-36); Mean Platelet Volume 9.6 fl (6.0-9.5); Neutrophil # 3.8 K/mm3 (1.3-6.0); Neutrophil % 56.5 % (42-75.0); Platelet Count 164 K/mm3 (150-450); Red Blood Count 3.67 M/mm3 (4.7-6.0); Red Cell Distribution Width 14.5 % (11.5-14.0); White Blood Count 6.7 K/mm3 (4.0-10.5)
[2017-03-16] MEDS ORDERED: ALBUTEROL SULFATE 2.5 MG/0.5 ML VIAL.NEB IH ONE ×2 (02:43→02:47)
[2017-03-16 02:57] VITALS: BP 143/70
== END 2017-03-16 02:55 | disposition home or self-care (01) ==
LOC: ER 01:12
DX: J40 Bronchitis, not specified as acute or chronic (principal); E10.9 Type 1 diabetes mellitus without complications; Z79.4 Long term (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

== ENCOUNTER 2019-11-03 12:45 | Observation (INO) ==
[2019-11-03] MEDS ORDERED: NALOXONE HCL 1 MG/1 ML SYRG IV ONE (12:51)
[2019-11-03] MEDS ORDERED: MIDAZOLAM HCL/PF 5 MG/ML VIAL ONE (12:58)
[2019-11-03] MEDS ORDERED: MIDAZOLAM HCL/PF 5 MG/ML VIAL IV ONE (13:03)
[2019-11-03] MEDS ORDERED: SUCCINYLCHOLINE CHLORIDE 20 MG/ML VIAL IV ONE (13:03)
[2019-11-03] MEDS ORDERED: LORazepam 2 MG/ML DISP.SYRIN ONE (13:09)
[2019-11-03] MEDS ORDERED: PROPOFOL 1,000 MG/100 ML PIGGYBACK IV PRN (13:10)
[2019-11-03] MEDS ORDERED: NOREPINEPHRINE BITARTRATE 4 MG in DEXTROSE 5 % IN WATER 496 ML IV PRN ×2 (13:11)
[2019-11-03] MEDS ORDERED: LORazepam 2 MG/ML DISP.SYRIN IV ONE (13:13)
[2019-11-03 13:19] LABS: Hematocrit 43.7 % (42.0-52.0); Hemoglobin 13.4 gm/dL (13.5-18.0); Mean Cell Volume 96.7 fl (78-100); Mean Corpuscular Hemoglobin 29.6 pg (27-31); Mean Corpuscular Hgb Conc 30.7 g/dl (32-36); Mean Platelet Volume 11.2 fl (8-11.3); NRBC# 0.1 k/mm3 (0-1); Neutrophil # 13.1 K/mm3 (1.3-6.0); Neutrophil % 84.6 % (42-75.0); Platelet Count 263 K/mm3 (150-450); Red Blood Count 4.52 M/mm3 (4.7-6.0); White Blood Count 15.5 K/mm3 (4.0-10.5)
[2019-11-03 13:29] LABS: Albumin * 2.8 gm/dl (3.4-5.0); BUN/Creatinine Ratio 15.5 (9.0-21.6); Bilirubin, Total 0.8 mg/dL (0.0-1.1); Ca. Corrected For Albumin 10.4 mg/dL (8.4-10.2); Calcium * 9.8 mg/dL (7.9-10.9); Carbon Dioxide 18.5 mmol/L (24-32.6); Potassium 4.5 mmol/L (3.4-4.6); Total Protein 7.4 gm/dL (6.2-8.2)
[2019-11-03 13:32] LABS: Troponin I 2.694 ng/mL (0.00-0.10)
[2019-11-03 14:17] LABS: Urine Bilirubin 1 mg/dl (NEGATIVE); Urine Blood 50 /ul (NEGATIVE); Urine Ketone Negative (NEGATIVE); Urine Nitrite Negative (NEGATIVE); Urine Protein 100 mg/dL (NEGATIVE); Urine Specific Gravity 1.025 SP.GR. (1.005-1.030); Urine Urobilinogen Normal (NORMAL); Urine pH 5.5 pH (5.0-7.0)
[2019-11-03 14:31] VITALS: BP 97/58
[2019-11-03] MEDS ORDERED: NORMAL SALINE 1,000 ML IV PRN (14:51)
[2019-11-03 14:59] LABS: Urine Appearance Cloudy (CLEAR); Urine Bacteria 2+; Urine Color Yellow; Urine Transitional Epi Cells Few - 1+ /hpf; Urine WBC TRACE /hpf (0-5)
[2019-11-03 15:00] LABS: Urine Amorphous Sediment Moderate - 2+ (NONE-FEW); Urine Sperm Few - 1+
--- NOTE | 2019-11-03 15:30 | ERNOTE ---
Dyspnea - Date Date of Service: 11/03/19 - General Presenting Symptoms: other - cardiopulmonary arrest, cpr in field rosc Time Seen by Provider: 11/03/19 12:48 Source: patient, family, EMS Exam Limitations: clinical condition - Immun/Allergies/Home Medications Immunizations: IMMUNIZATION HX Immunizations Up to Date No: Unknown due to pt condition History of Influenza Vaccine Yes Hx Pneumococcal Vaccination Yes Allergies/Adverse Reactions: Allergies No Known Drug Allergies Allergy (Verified 10/30/19 07:26) seasonal allergies Allergy (Unknown, Uncoded 07/12/19 09:22) Sinus irritant Home Medications: HOME MEDICATIONS Cholecalciferol (Vitamin D3) [Vitamin D3] 2,000 unit PO DAILY 12/30/16 [Last Taken Unknown] [place]-3 Fatty Acids/Fish Oil [Fish Oil 1,000 mg Capsule] 1 cap PO DAILY 12/30/16 [Last Taken Unknown] multivitamin 1 tab PO DAILY 09/17/17 [Last Taken Unknown] polyethylene glycol 3350 17 gram/dose oral powder 17 g PO DAILY PRN g 09/17/17 [Last Taken Unknown] lancets 28 gauge See Dose Instructions .ROUTE .MEDSUPPLY #200 ea 10/17/18 [Last Taken Unknown] insulin syringe,safetyneedle 1 mL 30 gauge x 5/16" See Dose Instructions .ROUTE .MEDSUPPLY #500 ea 11/03/18 [Last Taken Unknown] albuterol sulfate 90 mcg/actuation aerosol inhaler 2 puff IH Q6H PRN #8.5 g 12/02/18 [Last Taken Unknown] finasteride 5 mg tablet 5 mg PO DAILY #90 tab 12/02/18 [Last Taken Unknown] ipratropium 0.5 mg-albuterol 3 mg (2.5 mg base)/3 mL nebulization soln See Rx Instructions .ROUTE .COMPLEX #90 ml 12/02/18 [Last Taken Unknown] ferrous sulfate 324 mg (65 mg iron) tablet,delayed release 325 mg PO TID tab 01/17/19 [Last Taken Unknown] losartan 50 mg tablet 25 mg PO DAILY tab 01/17/19 [Last Taken Unknown] chlorpheniramine-dextromethorphan 4 mg-30 mg tablet 1 tab PO Q6H PRN #28 tab 03/09/19 [Last Taken Unknown] insulin detemir U-100 100 unit/mL subcutaneous solution 6 unit SUBCUT HS #10 ml 05/17/19 [Last Taken Unknown] acetaminophen 325 mg capsule 325 mg PO Q6H PRN 05/31/19 [Last Taken Unknown] melatonin 3 mg tablet 3 mg PO HS #30 tab 06/14/19 [Last Taken Unknown] warfarin 5 mg tablet 5 mg PO QMWFSU #120 tab 06/20/19 [Last Taken Unknown] warfarin 7.5 mg tablet 7.5 mg PO QTUTHSA tab 06/20/19 [Last Taken Unknown] atorvastatin 10 mg tablet See Rx Instructions .ROUTE .COMPLEX #90 unknown measurement unit code: tablet 09/11/19 [Last Taken Unknown] alendronate 70 mg tablet See Rx Instructions .ROUTE .COMPLEX #7 unknown measurement unit code: tablet 09/25/19 [Last Taken Unknown] insulin aspart U-100 100 unit/mL subcutaneous solution 3 unit SUBCUT TID #10 ml 09/25/19 [Last Taken Unknown] duloxetine 60 mg capsule,delayed release 60 mg PO DAILY #90 cap 10/09/19 [Last Taken Unknown] blood sugar diagnostic See Rx Instructions .ROUTE .COMPLEX #400 unknown measurement unit code: strip 10/23/19 [Last Taken Unknown] - History of Present Illness Narrative: patient fell to floor cardiac arrest cpr for 3-4 minutes assisted breathing upon arrival Severity: severe Treatment JAILKEEPER: paramedics Initiating event: Reports: unknown Frequency of episodes: Reports: no prior episodes Modifying Factors - (Improves): Reports: nothing Modifying Factors (Worsens): Reports: nothing Associated Symptoms-Dyspnea: Reports: other - unresponsive upon arrival Prior Treatment: Reports: recently seen, treated by physician, recently hospitalized, other - seen for fall earlier in week , reported to be confused for last several days Review of Systems - Narrative Narrative: unable to otain ros due to patient condition Medical History (Last Reviewed 11/03/19 @ 13:26 by Adriana Santos RN) Greater trochanter fracture (Resolved) Onset Date: 04/2019 left Open wound of left foot Onset Date: 01/19/17 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 comminuted intertrochanteric 4 part femur fracture -right History of barium enema Onset Date: 04/25/10 04/25/10 severe redundancy of colon History of colonoscopy Onset Date: 04/18/10 04/18/10 Bagan-attempted x2-poor prep. History of excision of lesion Onset Date: 05/15/13 Tinguely-excision of cyst on back. History of incision and drainage Onset Date: 03/22/13 Tinguely-abscess on back History of open reduction and internal fixation (ORIF) procedure Onset Date: 05/03/11 Cristoferms-left elbow olecranon fx. amputation toe Onset Date: ~201607/01/07 Dr. Camp-3rd right toe. 08/07/10 Frankie-4th right toe. Dr Quinn 12/30/16, 01/05/17-left foot big toe Secondary to gas gangrene grade 2 diabetic ulceration of the left plantar foot. 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 Highest education level completed: high school graduate Service: No Tobacco: Smoking Status: Never smoker Alcohol: alcohol intake: former Substance Use: substance use type: does not use Dietary Habits: caffeine: No NHANES Social Connection/Isolation: NHANES soc isolation marital status: [id number] Personal Safety: victim of physical abuse: No victim of emotional abuse: No Physical Exam - Physical Exam General Appearance: Present: severe distress, lethargic Head Exam: Present: normal inspection, no evidence of injury Eye Exam: Abnormal pupil: bilateral - pupils pinpoint upon arrival Ears, Nose, Throat: Present: normal ENT inspection, normal pharynx Neck: Present: normal inspection Respiratory: Present: respiratory distress, decreased breath sounds, crackles, rales, rhonchi Cardiovascular/Chest: Present: bradycardia Gastrointestinal/Abdominal: Present: other - soft without masses Male Genitals Exam: Present: normal genitalia Back Exam: Present: normal inspection Extremity Exam: Present: other - cyanotic with poor perfusion Neurological Exam: Present: disoriented to person, disoriented to time, disoriented to place, other - agonal breathing with assisted bag-valve Skin Exam: Present: cyanosis Lymphatic Exam: Present: no adenopathy Progress - Date and Time Seen: Date and Time: 11/03/19 16:31 patient intially intubated ,with pressure supportvia anujafed, after lengthy duscussion with daughter , she requests comfort care only for patient and stated patients wishes were to be a dnr, case discussed with dr bolton who accepts patient for admission - Results and Orders Patient's Lab Results:: I have reviewed the patient's lab results. - Vital Signs Patient's Vital Signs:: I have reviewed the patient's vital signs. Vital Signs: Vital Signs 11/03/19 12:45 11/03/19 13:30 11/03/19 13:50 Temperature Pulse Rate 105 H 88 87 Respiratory Rate 32 H 22 H Blood Pressure 107/61 109/62 O2 Sat by Pulse Oximetry 100 100 11/03/19 14:00 11/03/19 14:23 Temperature 36.4 C Pulse Rate 86 84 Respiratory Rate 32 H 22 H Blood Pressure 93/57 97/58 O2 Sat by Pulse Oximetry 97 100 - EKG EKG #1 EKG: atrial fibrillation - X-Ray X-Ray #1 X-Ray: chest - pulmonary edema - CT/Ultrasound CT/Ultrasound Narrative: no acute process - Progress/Reassessment Chief Complaint: Dyspnea Progress:: Unchanged - after discussion with family and dr bolton patient extubated pressors removed, to admit to hospital for comfort measures only Plan - Plan Plan: to admit to hospital comfort meassures only Departure Clinical Impression: Cardiopulmonary arrest, CKD (chronic kidney disease), Diabetes mellitus type 1, PAF (paroxysmal atrial fibrillation) - Departure Disposition: Short Term Hospital Inpatient Condition: Critical
[2019-11-03] MEDS ORDERED: MORPHINE SULFATE 2 MG/ML DISP.SYRIN IV ONE (15:45)
[2019-11-03] MEDS ORDERED: LORazepam 2 MG/ML DISP.SYRIN IV PRN (16:53)
[2019-11-03] MEDS ORDERED: ATROPINE SULFATE 50 DROP BTL SL PRN (16:53)
[2019-11-03] MEDS ORDERED: POLYVINYL ALCOHOL 150 DROP BTL EACHEYE PRN (16:53)
[2019-11-03] MEDS ORDERED: ONDANSETRON HCL/PF 2 MG/ML VIAL IV PRN (16:53)
[2019-11-03] MEDS ORDERED: MORPHINE SULFATE 10 MG/0.5 ML SYRINGE PO PRN (16:53)
[2019-11-03] MEDS ORDERED: SCOPOLAMINE HYDROBROMIDE 1.5 MG PATC TD SCH (17:00)
[2019-11-03] MEDS: MORPHINE SULFATE 2 MG/ML DISP.SYRIN IV PRN ×3 (17:31→23:12)
--- NOTE | 2019-11-03 17:44 | HP ---
Chief Complaint - Chief Complaint Date of Service: 11/03/19 Time of Service: 16:15 Chief Complaint: cardiac arrest History of Present Illness: History obtained from ERP and chart, as no family present and patient is not interactive. Patient was at home, went unresponsive, and his daughter performed chest compressions. He had an ED visit earlier this week, and was having multiple falls at home. 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 He's been seeing podiatry for another foot ulcer. In the ED, he was having agonal breathing, and he was intubated. He also had very low blood pressure, and was started on a levophed drip. These were maintained for approximately two hours, when his daughter asked for these to be withdrawn. She reports he would not have wanted these steps to be taken. His had been on a ventilator, and he did not want that. She asked for the ERP to pursue comfort measures only. He was extubated, and levophed stopped. At my evaluation approximately an hour later, he was having increased work of breathing, and tachypnea. He did not respond to voice. Tobin catheter placed on arrival, but per nursing report, he had not had any urine output in approximately 3 hours. Labwork is suspicious for infection, with elevated WBC of 15.5, elevated neutrophils, though no procalcitonin or lactate done. He is in renal failure, with decreased urine output, GFR of 12, and creatinine of 5.03. [place]rop[place] 2.[address] [place] [address], indicating cardiac stress. No acute findings on head CT. He is admitted for comfort measures, with the anticipation he may pass within 24 hours. Medical History (Last Reviewed 11/03/19 @ 13:26 by Adriana Santos RN) Greater trochanter fracture (Resolved) Onset Date: 04/2019 left Open wound of left foot Onset Date: 01/19/17 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 comminuted intertrochanteric 4 part femur fracture -right History of barium enema Onset Date: 04/25/10 04/25/10 severe redundancy of colon History of colonoscopy Onset Date: 04/18/10 04/18/10 Bagan-attempted x2-poor prep. History of excision of lesion Onset Date: 05/15/13 Danisely-excision of cyst on back. History of incision and drainage Onset Date: 03/22/13 Tinguely-abscess on back History of open reduction and internal fixation (ORIF) procedure Onset Date: 05/03/11 Elvi-left elbow olecranon fx. amputation toe Onset Date: ~201607/01/07 Dr. Camp-3rd right toe. 08/07/10 Frankie-4th right toe. Dr Quinn 7, 01/05/17-left foot big toe Secondary to gas gangrene grade 2 diabetic ulceration of the left plantar foot. 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 Highest education level completed: high school graduate Service: No Tobacco: Smoking Status: Never smoker Alcohol: alcohol intake: former Substance Use: substance use type: does not use Dietary Habits: caffeine: No NHANES Social Connection/Isolation: NHANES soc isolation marital status: [id number] 1 Personal Safety: victim of physical abuse: No victim of emotional abuse: No Review Of Systems (GEN) - Review of Systems Generalized/Overall Review: Present: No Symptoms Reported - unable to obtain Immunizations: IMMUNIZATION HX Immunizations Up to Date No: Unknown due to pt condition History of Influenza Vaccine Yes Hx Pneumococcal Vaccination Yes Allergies/Adverse Reactions: Allergies Allergy/AdvReac Type Severity Reaction Status Date / Time No Known Drug Allergies Allergy Verified 10/30/19 07:26 seasonal allergies Allergy Unknown Sinus Uncoded 07/12/19 09:22 irritant Home Medications: HOME MEDICATIONS Cholecalciferol (Vitamin D3) [Vitamin D3] 2,000 unit PO DAILY 12/30/16 [Last Taken Unknown] [place]-3 Fatty Acids/Fish Oil [Fish Oil 1,000 mg Capsule] 1 cap PO DAILY 12/30/16 [Last Taken Unknown] multivitamin 1 tab PO DAILY 09/17/17 [Last Taken Unknown] polyethylene glycol 3350 17 gram/dose oral powder 17 g PO DAILY PRN g 09/17/17 [Last Taken Unknown] lancets 28 gauge See Dose Instructions .ROUTE .MEDSUPPLY #200 ea 10/17/18 [Last Taken Unknown] insulin syringe,safetyneedle 1 mL 30 gauge x 5/16" See Dose Instructions .ROUTE .MEDSUPPLY #500 ea 11/03/18 [Last Taken Unknown] albuterol sulfate 90 mcg/actuation aerosol inhaler 2 puff IH Q6H PRN #8.5 g 12/02/18 [Last Taken Unknown] finasteride 5 mg tablet 5 mg PO DAILY #90 tab 12/02/18 [Last Taken Unknown] ipratropium 0.5 mg-albuterol 3 mg (2.5 mg base)/3 mL nebulization soln See Rx Instructions .ROUTE .COMPLEX #90 ml 12/02/18 [Last Taken Unknown] ferrous sulfate 324 mg (65 mg iron) tablet,delayed release 325 mg PO TID tab 01/17/19 [Last Taken Unknown] losartan 50 mg tablet 25 mg PO DAILY tab 01/17/19 [Last Taken Unknown] chlorpheniramine-dextromethorphan 4 mg-30 mg tablet 1 tab PO Q6H PRN #28 tab 03/09/19 [Last Taken Unknown] insulin detemir U-100 100 unit/mL subcutaneous solution 6 unit SUBCUT HS #10 ml 05/17/19 [Last Taken Unknown] acetaminophen 325 mg capsule 325 mg PO Q6H PRN 05/31/19 [Last Taken Unknown] melatonin 3 mg tablet 3 mg PO HS #30 tab 06/14/19 [Last Taken Unknown] warfarin 5 mg tablet 5 mg PO QMWFSU #120 tab 06/20/19 [Last Taken Unknown] warfarin 7.5 mg tablet 7.5 mg PO QTUTHSA tab 06/20/19 [Last Taken Unknown] atorvastatin 10 mg tablet See Rx Instructions .ROUTE .COMPLEX #90 unknown measurement unit code: tablet 09/11/19 [Last Taken Unknown] alendronate 70 mg tablet See Rx Instructions .ROUTE .COMPLEX #7 unknown measurement unit code: tablet 09/25/19 [Last Taken Unknown] insulin aspart U-100 100 unit/mL subcutaneous solution 3 unit SUBCUT TID #10 ml 09/25/19 [Last Taken Unknown] duloxetine 60 mg capsule,delayed release 60 mg PO DAILY #90 cap 10/09/19 [Last Taken Unknown] blood sugar diagnostic See Rx Instructions .ROUTE .COMPLEX #400 unknown me asurement unit code: strip 10/23/19 [Last Taken Unknown] Exam - Exam Vital Signs: Vital Signs - Last Taken Temp 36.4 C 11/03/19 14:23 Pulse 84 11/03/19 14:23 Resp 22 H 11/03/19 14:23 BP 97/58 11/03/19 14:23 Pulse Ox 100 11/03/19 14:23 Constitutional: Present: Mild distress, Elderly, Thin and frail Respiratory: Present: accessory muscle use, rales, other - tachypnea Cardiovascular/Chest: Present: other - unable to hear heart sounds over respirations Abdomen: Present: other - bilateral bruising of abdomen Extremity: Present: other - left forefoot amputation. Absent: lower extremity edema Diagnostic Studies: Abnormal Lab Results 11/03/19 11/03/19 11/03/19 Range/Units 12:51 13:05 13:05 WBC 15.5 H (4.0-10.5) K/mm3 RBC 4.52 L (4.7-6.0) M/mm3 Hgb 13.4 L (13.5-18.0) gm/dL MCHC 30.7 L (32-36) g/dl Immature Gran % (Auto) 2.60 H (0.001-0.429) % Immature Gran # (Auto) 0.40 H (0.000-0.0310) K/mm3 Neutrophils % 84.6 H (42-75.0) % Lymphocytes % 7.7 L (20-51) % Neutrophils # 13.1 H (1.3-6.0) K/mm3 Lymphocytes # 1.20 L (1.5-3.5) k/mm3 pCO2 (35.0-48.0) mmHg HCO3 12.5 L (21.0-28.0) mmol/L Total CO2 13.6 L (19.0-24.0) mmol/L Base Excess -15.1 L (-2.0-3.0) mmol/L ABG pH 7.16 L* (7.35-7.45) ABG O2 Sat (Measured) 93.5 L (94.0-98.0) % Sodium 144 H (132-142) mmol/L Plasma Sodium 147 H (130-142) mmol/L Carbon Dioxide 18.5 L (24-32.6) mmol/L Anion Gap 27.0 H (6.8-13.8) mmol/L BUN 78 H D (6-23) mg/dL Creatinine 5.03 H D (0.4-1.4) mg/dL Est GFR (Non-Af Amer) 12 L D (60-130) mL/min Random Glucose 275 H (70-110) mg/dL Calcium Adj for Albumin 10.4 H (8.4-10.2) mg/dL AST 846 H (0-48) U/L ALT 675 H (19-67) U/L Troponin I 2.694 H* (0.00-0.10) ng/mL B-Natriuretic Peptide 77448 H (5-350) pg/mL Albumin 2.8 L (3.4-5.0) gm/dl Urine Protein (NEGATIVE) mg/dL Urine Glucose (UA) (NEGATIVE) mg/dL Urine Blood (NEGATIVE) /ul Urine Bilirubin (NEGATIVE) mg/dl Urine RBC (0-5) /hpf Ur Transition Epith Cell (NONE) /hpf Amorphous Sediment (NONE-FEW) Urine Bacteria (NONE) Fine Granular Casts (NONE) /LPF Urine Sperm (NONE) 11/03/19 11/03/19 Range/Units 13:48 14:33 WBC (4.0-10.5) K/mm3 RBC (4.7-6.0) M/mm3 Hgb (13.5-18.0) gm/dL MCHC (32-36) g/dl Immature Gran % (Auto) (0.001-0.429) % Immature Gran # (Auto) (0.000-0.0310) K/mm3 Neutrophils % (42-75.0) % Lymphocytes % (20-51) % Neutrophils # (1.3-6.0) K/mm3 Lymphocytes # (1.5-3.5) k/mm3 pCO2 30.8 L (35.0-48.0) mmHg HCO3 12.4 L (21.0-28.0) mmol/L Total CO2 13.3 L (19.0-24.0) mmol/L Base Excess -14.0 L (-2.0-3.0) mmol/L ABG pH 7.22 L (7.35-7.45) ABG O2 Sat (Measured) (94.0-98.0) % Sodium (132-142) mmol/L Plasma Sodium (130-142) mmol/L Carbon Dioxide (24-32.6) mmol/L Anion Gap (6.8-13.8) mmol/L BUN (6-23) mg/dL Creatinine (0.4-1.4) mg/dL Est GFR (Non-Af Amer) (60-130) mL/min Random Glucose (70-110) mg/dL Calcium Adj for Albumin (8.4-10.2) mg/dL AST (0-48) U/L ALT (19-67) U/L Troponin I (0.00-0.10) ng/mL B-Natriuretic Peptide (5-350) pg/mL Albumin (3.4-5.0) gm/dl Urine Protein 100 H (NEGATIVE) mg/dL Urine Glucose (UA) >=1000 H (NEGATIVE) mg/dL Urine Blood 50 H (NEGATIVE) /ul Urine Bilirubin 1 H (NEGATIVE) mg/dl Urine RBC 5-10 H (0-5) /hpf Ur Transition Epith Cell Few - 1+ H (NONE) /hpf Amorphous Sediment Moderate - 2+ H (NONE-FEW) Urine Bacteria 2+ H (NONE) Fine Granular Casts 5-10 H (NONE) /LPF Urine Sperm Few - 1+ H (NONE) Laboratory Results WBC 15.5 K/mm3 (4.0-10.5) H 11/03/19 13:05 RBC 4.52 M/mm3 (4.7-6.0) L 11/03/19 13:05 Hgb 13.4 gm/dL (13.5-18.0) L 11/03/19 13:05 Hct 43.7 % (42.0-52.0) 11/03/19 13:05 MCV 96.7 fl (78-100) 11/03/19 13:05 MCH 29.6 pg (27-31) 11/03/19 13:05 MCHC 30.7 g/dl (32-36) L 11/03/19 13:05 RDW 14.0 % (11.5-14.0) 11/03/19 13:05 Plt Count 263 K/mm3 (150-450) 11/03/19 13:05 MPV 11.2 fl (8-11.3) 11/03/19 13:05 Immature Gran % (Auto) 2.60 % (0.001-0.429) H 11/03/19 13:05 Immature Gran # (Auto) 0.40 K/mm3 (0.000-0.0310) H 11/03/19 13:05 Neutrophils % 84.6 % (42-75.0) H 11/03/19 13:05 Lymphocytes % 7.7 % (20-51) L 11/03/19 13:05 Monocytes % 4.6 % (0.0-9) 11/03/19 13:05 Eosinophils % 0.1 % (0.0-3.0) 11/03/19 13:05 Basophils % 0.4 % (0.0-1.0) 11/03/19 13:05 Nucleated RBC % 0.1 k/mm3 (0-1) 11/03/19 13:05 Neutrophils # 13.1 K/mm3 (1.3-6.0) H 11/03/19 13:05 Lymphocytes # 1.20 k/mm3 (1.5-3.5) L 11/03/19 13:05 Monocytes # 0.7 k/mm3 (0.0-1.0) 11/03/19 13:05 Eosinophils # 0.0 k/mm3 (0.0-0.7) 11/03/19 13:05 Absolute Basophils 0.1 k/mm3 (0.0-0.1) 11/03/19 13:05 pCO2 30.8 mmHg (35.0-48.0) L 11/03/19 14:33 pO2 96.8 mmHg (83.0-108.0) 11/03/19 14:33 HCO3 12.4 mmol/L (21.0-28.0) L 11/03/19 14:33 Total CO2 13.3 mmol/L (19.0-24.0) L 11/03/19 14:33 Base Excess -14.0 mmol/L (-2.0-3.0) L 11/03/19 14:33 ABG pH 7.22 (7.35-7.45) L 11/03/19 14:33 ABG O2 Sat (Measured) 96.2 % (94.0-98.0) 11/03/19 14:33 Sodium 144 mmol/L (132-142) H 11/03/19 13:05 Plasma Sodium 147 mmol/L (130-142) H 11/03/19 13:05 Potassium 4.5 mmol/L (3.4-4.6) 11/03/19 13:05 Chloride 103 mmol/L (97-106) 11/03/19 13:05 Carbon Dioxide 18.5 mmol/L (24-32.6) L 11/03/19 13:05 Anion Gap 27.0 mmol/L (6.8-13.8) H 11/03/19 13:05 BUN 78 mg/dL (6-23) H D 11/03/19 13:05 Creatinine 5.03 mg/dL (0.4-1.4) H D 11/03/19 13:05 Est GFR (Non-Af Amer) 12 mL/min (60-130) L D 11/03/19 13:05 BUN/Creatinine Ratio 15.5 (9.0-21.6) 11/03/19 13:05 Random Glucose 275 mg/dL (70-110) H 11/03/19 13:05 Calcium 9.8 mg/dL (7.9-10.9) 11/03/19 13:05 Calcium Adj for Albumin 10.4 mg/dL (8.4-10.2) H 11/03/19 13:05 Total Bilirubin 0.8 mg/dL (0.0-1.1) 11/03/19 13:05 AST 846 U/L (0-48) H 11/03/19 13:05 ALT 675 U/L (19-67) H 11/03/19 13:05 Alkaline Phosphatase 102 U/L (50-170) 11/03/19 13:05 Troponin I 2.694 ng/mL (0.00-0.10) H* 11/03/19 13:05 B-Natriuretic Peptide 82571 pg/mL (5-350) H 11/03/19 13:05 Total Protein 7.4 gm/dL (6.2-8.2) 11/03/19 13:05 Albumin 2.8 gm/dl (3.4-5.0) L 11/03/19 13:05 Urine Color Yellow 11/03/19 13:48 Urine Appearance Cloudy (CLEAR) 11/03/19 13:48 Urine pH 5.5 pH (5.0-7.0) 11/03/19 13:48 Ur Specific [place] 1.025 SP.GR. (1.005-1.030) 11/03/19 13:48 Urine Protein 100 mg/dL (NEGATIVE) H 11/03/19 13:48 Urine Glucose (UA) >=1000 mg/dL (NEGATIVE) H 11/03/19 13:48 Urine Ketones Negative mg/dL (NEGATIVE) 11/03/19 13:48 Urine Blood 50 /ul (NEGATIVE) H 11/03/19 13:48 Urine Nitrate Negative (NEGATIVE) 11/03/19 13:48 Urine Bilirubin 1 mg/dl (NEGATIVE) H 11/03/19 13:48 Urine Ictotest Negative (NEGATIVE) 11/03/19 13:48 Prot Sulfosalicylic Acd 1+ mg/dL (0) 11/03/19 13:48 Urine Urobilinogen Normal EU/dl (NORMAL) 11/03/19 13:48 Ur Leukocyte Esterase Negative /ul (NEGATIVE) 11/03/19 13:48 Urine RBC 5-10 /hpf (0-5) H 11/03/19 13:48 Urine WBC Trace /hpf (0-5) 11/03/19 13:48 Ur Epithelial Cells Trace /hpf (0-5) 11/03/19 13:48 Ur Transition Epith Cell Few - 1+ /hpf (NONE) H 11/03/19 13:48 Amorphous Sediment Moderate - 2+ (NONE-FEW) H 11/03/19 13:48 Urine Bacteria 2+ (NONE) H 11/03/19 13:48 Fine Granular Casts 5-10 /LPF (NONE) H 11/03/19 13:48 Urine Sperm Few - 1+ (NONE) H 11/03/19 13:48 Urine Culture Comments Culture to follow 11/03/19 13:48 SARS-CoV-2 (PCR) Not detected (NotDetected) 11/03/19 13:45 Assessment/Plan - Assessment/Plan (1) MSOF (multiple systems organ failure) Assessment: With cardiac arrest, respiratory arrest, renal failure, highly elevated transaminases, and encephalopathy, pH of 7.12 he is in multisystem organ failure. Problem: Acute (2) Cardiopulmonary arrest Assessment: CPR performed, with ROSC achieved. His family has opted for comfort measures only. This may have been due to infection, possibly from his foot. Urine with only 2+ bacteria, but culture is pending. Per report, his health has been declining lately. CXR concerning for bilateral infiltrates. COVID negative. He did not waken during my exam. He was intubated and extubated in the ED. Comfort measure orders in place. With his increased work of breathing and renal failure, he may pass within 24 hours. Problem: Acute (3) Encephalopathy Assessment: Chart review shows he was interactive during an ED visit on 10/30/2019. Unknown etiology, but could be infectious source is likely with his elevated WBC and neutrophils. His sugar is 275, but it was in the 200's during his recent ED visit, so I anticipate his sugar is not far from baseline, and not the source of his encephalopathy. Problem: Acute (4) Metabolic acidosis Assessment: Possibly from uremia. I anticipate his lactate would have been high if checked. Problem: Acute (5) Ixecx-[id number]-psoyjtv renal failure Assessment: Tobin placed when he got to the ED with some output, but nursing reports no additional urine in the three hours since. With GFR of 12 and creatinine of 5, along with anuria, he is in renal failure. Problem: Acute (6) Diabetic ulcer of foot associated with diabetes mellitus due to underlying condition, with fat layer exposed Problem: Chronic Qualifiers: Diabetic foot ulcer location: other Laterality: left Qualified Code(s): E08.621 - Diabetes mellitus due to underlying condition with foot ulcer; L97.522 - Non-pressure chronic ulcer of other part of left foot with fat layer exposed (7) Elevated troponin Assessment: Troponin of 2.694. I do not see signs of ischemia or infarct on EKG, but there is motion artifact. Problem: Acute (8) Elevated brain natriuretic peptide (BNP) level Assessment: No lower extremity swelling and I do not see signs of fluid overload on CXR. His troponin is elevated and he received CPR, so his highly elevated BNP of 24,021 is likely from cardiac arrest/injury. Problem: Acute (9) Elevated transaminase level Problem: Acute (10) Frequent falls Problem: Acute
--- NOTE | 2019-11-04 10:34 | DS ---
Discharge Summary - Provider Primary Care Provider: Maritza Carter Admitting Clinician: Cat Perera - Date and Time Date of : 11/04/19 Time of : 03:14 - Diagnosis/Cause of (1) MSOF (multiple systems organ failure) Problems: Acute (2) Cardiopulmonary arrest Problems: Acute (3) Encephalopathy Problems: Acute (4) Metabolic acidosis Problems: Acute (5) Isntq-ud-intocqi renal failure Problems: Acute (6) Diabetic ulcer of foot associated with diabetes mellitus due to underlying condition, with fat layer exposed Problems: Chronic (7) Elevated troponin Problems: Acute (8) Elevated brain natriuretic peptide (BNP) level Problems: Acute (9) Elevated transaminase level Problems: Acute (10) Frequent falls Problems: Acute - Summary Details (narrative): Patient was at home, went unresponsive, and his daughter performed chest compressions. In the ED, he was having agonal breathing, and he was intubated. He also had very low blood pressure, and was started on a levophed drip. These were maintained for approximately two hours, when his daughter asked for these to be withdrawn. He had an ED visit earlier this week, and was having multiple falls at home. 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 He'd been seeing podiatry for another foot ulcer. She reports he would not have wanted these steps to be taken. His had been on a ventilator, and he did not want that. She asked for the ERP to pursue comfort measures only. He was extubated, and levophed stopped. At my evaluation ap proximately an hour later, he was having increased work of breathing, and tachypnea. He did not respond to voice. Tobin catheter placed on arrival, but per nursing report, he had not had any urine output in approximately 3 hours. Labwork is suspicious for infection, with elevated WBC of 15.5, elevated neutrophils, though no procalcitonin or lactate done. He is in renal failure, with decreased urine output, GFR of 12, and creatinine of 5.03. Transaminases were highly elevated, and were normal on 10/30/19. [place]roponin is 2.[address] [place] [address], indicating cardiac stress. No acute findings on head CT. He was admitted for comfort measures. Morphine was administered for increased work of breathing. He passed overnight, and was pronounced at 0314 on the morning of 11/04/19. Procedures Performed: none - Additional Data Confirmation of as documented by pronouncing clinician: no pulse, no respirations Family: contacted Practitioner(Attending/PCP) notified: Yes Attending physician: Cat Perera Was code activated: No Organ Bank notified: Yes - He was determined to be ineligible for donation.
== END 2019-11-04 03:14 | disposition expired ==
LOC: MS 12:45 → ER 12:45 → MS 16:27
PROVIDERS: ADMIT Family Medicine; ATTEND Family Medicine